=== PATIENT | female | born 1950 | race Caucasian/White ===

== ENCOUNTER → 2016-09-23 | Outpatient (CLI) | payer OTHER ==
[~2016-09-23] MED LIST: ALDACTONE25 M1 PO; CEPHULAC10 GM/15 M PO; CEPHULAC10 GM/151 PO; GLIPIZIDE5 MG PO; HUMALOG100 U/ML SC; IBUPROFEN400 MG PO; JANUVIA50 MG PO; K-Lyte/Cl25 MEQ PO; KEFZOL IV; KLOR-CON M2020 ME1 PO; LANTUS100 U/ML SC; LASIX20 MG PO; LISINOPRIL10 M1 PO; OXYCODONE HCL5 MG PO; PANTOPRAZOLE SO40 MG PO; PROTONIX40 MG PO; TRAMADOL HCL50 MG PO; VITAMIN D50000 I3 PO; Zofran4 MG PO
== END | disposition home or self-care (01) ==
LOC: MRI 08:52
DX: M75.42 Impingement syndrome of left shoulder (principal); M47.892 Other spondylosis, cervical region; M48.02 Spinal stenosis, cervical region; M54.12 Radiculopathy, cervical region; M25.512 Pain in left shoulder; M54.2 Cervicalgia; R20.0 Anesthesia of skin

== ENCOUNTER → 2016-09-30 | Outpatient (CLI) | payer OTHER ==
[2016-09-30 08:25] LABS: BASO % 0.9 % (0.0-1.0); EOS # 0.2 10*3/uL (0.0-0.4); EOS % 5.5 % (1.0-4.0); HEMATOCRIT 38.6 % (37.0-47.0); LYMPH # 1.1 10*3/uL (1.3-4.4); LYMPH % 25.1 % (27.0-41.0); MEAN CELL VOLUME 87.7 fl (81.0-99.0); MEAN CORPUSCULAR HGB 31.8 pg (27.0-31.0); MEAN CORPUSCULAR HGB CONC 36.3 g/dl (33.0-37.0); MEAN PLATELET VOLUME 10.2 fl (9.6-12.3); MONO # 0.7 10*3/uL (0.1-1.0); MONO % 16.4 % (3.0-9.0); NEUT # 2.3 10*3/uL (2.3-7.9); NEUT % 51.9 % (47.0-73.0); PLATELET COUNT AUTOMATED 106 10*3/uL (130-400); RED CELL DISTRI WIDTH 12.9 % (0-14.5); WHITE BLOOD COUNT 4.4 10*3/uL (4.8-10.8)
[2016-09-30 08:43] LABS: INTERNATIONAL NORM RATIO 1.3 (2.0-3.5); PROTHROMBIN TIME 13.7 SECONDS (9.0-12.4)
[2016-09-30 08:44] LABS: ALBUMIN 2.9 gm/dl (3.1-4.5); ALKALINE PHOSPHATASE 205 U/L (45-117); BILIRUBIN, TOTAL 2.6 mg/dl (0.2-1.0); BUN 11 mg/dl (7-24); CARBON DIOXIDE 26 mmol/L (21-32); CHLORIDE 112 mmol/L (98-107); CHOLESTEROL 118 mg/dL (<200); EST GLOM FILT AFRICAN AMERICAN > 60 ml/min; GLUCOSE 176 mg/dL (65-99); HDL CHOLESTEROL 58 mg/dl (40-60); LDL CHOLESTEROL 38 mg/dL (9-159); POTASSIUM 3.4 mmol/L (3.5-5.1); SGOT/AST 38 IU/L (3-35); SGPT/ALT 33 U/L (12-78); SODIUM 145 mmol/L (136-145); TOTAL PROTEIN 6.3 gm/dL (6.4-8.2); TRIGLYCERIDES 111 mg/dl (<150); VLDL CHOLESTEROL 22 mg/dL (6-40)
== END | disposition home or self-care (01) ==
LOC: LAB 07:13 → US 07:30
DX: E11.9 Type 2 diabetes mellitus without complications (principal); K75.81 Nonalcoholic steatohepatitis (NASH); K74.60 Unspecified cirrhosis of liver

== ENCOUNTER 2016-12-21 16:14 | Emergency (ER) | payer OTHER ==
[~2016-12-21] VITALS: Wt 77.1 kg
== END 2016-12-21 17:26 | disposition home or self-care (01) ==
LOC: ED 16:14
DX: S83.92XA Sprain of unspecified site of left knee, initial encounter (principal); Z79.4 Long term (current) use of insulin; Z79.899 Other long term (current) drug therapy; W18.09XA Striking against other object with subsequent fall, initial encounter; Y93.01 Activity, walking, marching and hiking; Y92.9 Unspecified place or not applicable; Y99.9 Unspecified external cause status

== ENCOUNTER → 2017-02-24 | Day surgery (SDC) | payer OTHER ==
[~2017-02-24] VITALS: Ht 162.5 cm; Wt 72.6 kg
[~2017-02-24] MED LIST changes: +LANTUS SOL100 UNIT/1 SC
--- NOTE | ~2017-02-24 | O ---
[place], [place] OPERATIVE NOTE NAME: GABRIEL LYNCH UNIT #: [id number] ROOM: DOCTOR: JOHN TRINIDAD MD BIRTHDATE: [birth year] DOS: 02/24/2017 PREOPERATIVE DIAGNOSIS: Cataract, right eye. POSTOPERATIVE DIAGNOSIS: Cataract, right eye. OPERATION: Extracapsular cataract extraction by phacoemulsification with posterior chamber intraocular lens implantation, right eye. ANESTHESIA: Monitored standby. OPERATIVE FINDINGS AND PROCEDURE: 2% Xylocaine topical anesthetic gel was applied to the eye in the preop area. The patient was taken to the operating room and prepped and draped in the standard fashion for sterile intraocular surgery. A time out procedure was performed verifying correct patient, correct site and corrects lens with Gasper Trinidad M.D. The operating microscope was swung into position and the lid speculum was inserted. Using a Germaine paracentesis blade, a paracentesis was made through clear cornea. Viscoelastic was used to fill the anterior chamber. Using a metal keratome a 2.4 mm self-sealing clear corneal cataract incision was made temporally at the limbus. Using a pre-bent 25 gauge cystotome needle, a standard continuous curvilinear capsulorrhexis was performed. The anterior capsule was removed with forceps. The lens nucleus was hydrodissected and phacoemulsified in the posterior chamber. Cortical material was removed with the irrigation aspiration hand piece and the posterior capsule was then polished with a curet under irrigation. The posterior chamber and capsular bag were filled with viscoelastic. A posterior chamber intraocular lens manufactured by: [employer], Model #[id number], and 22.5 diopters in strength were then inserted into the posterior chamber and within the capsular bag using the lens cartridge and injector system. Viscoelastic was removed using the irrigation aspiration handpiece. The anterior chamber was filled with balanced salt solution through the paracentesis. Both the paracentesis site and cataract incisions were hydrated with BSS and verified to be water-tight and self-sealing. Cefuroxime 1 mg/0.1 mL was injected into the anterior chamber through the paracentesis site. The incision checked to be water-tight using a Weck-Sienna sponge. The integrity of the cataract wound and ocular tension were checked. Lid speculum and drapes were removed. The patient was transferred from the operating room to the recovery room in satisfactory condition. [place], [place] OPERATIVE NOTE NAME: GABRIEL LYNCH UNIT #: [id number] ROOM: DOCTOR: JOHN TRINIDAD MD BIRTHDATE: [birth year] JOHN TRINIDAD MD CM:OPRECORD:OPERATIVE NOTE [id number] JOHN TRINIDAD MD 02/24/17 1252 interface
[2017-02-24 07:00] VITALS: BP 171/73
[2017-02-24 09:30] VITALS: BP 154/64
[2017-02-24 09:45] VITALS: BP 154/66
[2017-02-24 10:00] VITALS: BP 154/66
== END | disposition home or self-care (01) ==
LOC: SDC 02-19 08:45
DX: E11.36 Type 2 diabetes mellitus with diabetic cataract (principal); Z98.890 Other specified postprocedural states; Z88.3 Allergy status to other anti-infective agents; Z87.891 Personal history of nicotine dependence

== ENCOUNTER → 2017-03-31 | Day surgery (SDC) | payer OTHER ==
[~2017-03-31] VITALS: Ht 162.5 cm; Wt 72.6 kg
--- NOTE | ~2017-03-31 | O ---
[place], [place] OPERATIVE NOTE NAME: GABRIEL LYNCH UNIT #: [id number] ROOM: DOCTOR: JOHN TRINIDAD MD BIRTHDATE: [birth year] DOS: 03/31/2017 PREOPERATIVE DIAGNOSIS: Cataract, left eye. POSTOPERATIVE DIAGNOSIS: Cataract, left eye. OPERATION: Extracapsular cataract extraction by phacoemulsification with posterior chamber intraocular lens implantation, left eye. ANESTHESIA: Monitored standby. OPERATIVE FINDINGS AND PROCEDURE: 2% Xylocaine topical anesthetic gel was applied to the eye in the preop area. The patient was taken to the operating room and prepped and draped in the standard fashion for sterile intraocular surgery. A time out procedure was performed verifying correct patient, correct site and corrects lens with Gasper Trinidad M.D. The operating microscope was swung into position and the lid speculum was inserted. Using a Germaine paracentesis blade, a paracentesis was made through clear cornea. Viscoelastic was used to fill the anterior chamber. Using a metal keratome a 2.4 mm self-sealing clear corneal cataract incision was made temporally at the limbus. Using a pre-bent 25 gauge cystotome needle, a standard continuous curvilinear capsulorrhexis was performed. The anterior capsule was removed with forceps. The lens nucleus was hydrodissected and phacoemulsified in the posterior chamber. Cortical material was removed with the irrigation aspiration hand piece and the posterior capsule was then polished with a curet under irrigation. The posterior chamber and capsular bag were filled with viscoelastic. A posterior chamber intraocular lens manufactured by: [employer], Model #[id number] and 23.0 diopters in strength were then inserted into the posterior chamber and within the capsular bag using the lens cartridge and injector system. Viscoelastic was removed using the irrigation aspiration handpiece. The anterior chamber was filled with balanced salt solution through the paracentesis. Both the paracentesis site and cataract incisions were hydrated with BSS and verified to be water-tight and self-sealing. Cefuroxime 1 mg/0.1 mL was injected into the anterior chamber through the paracentesis site. The incision checked to be water-tight using a Weck-Sienna sponge. The integrity of the cataract wound and ocular tension were checked. Lid speculum and drapes were removed. The patient was transferred from the operating room to the recovery room in satisfactory condition. [place], [place] OPERATIVE NOTE NAME: GABRIEL LYNCH UNIT #: [id number] ROOM: DOCTOR: JOHN TRINIDAD MD BIRTHDATE: [birth year] JOHN TRINIDAD MD CM:OPRECORD:OPERATIVE NOTE [id number] JOHN TRINIDAD MD 03/31/17937 interface
[2017-03-31 07:28] VITALS: BP 163/84
[2017-03-31 08:05] VITALS: BP 140/52
[2017-03-31 08:20] VITALS: BP 139/49
[2017-03-31 08:35] VITALS: BP 140/52
== END | disposition home or self-care (01) ==
LOC: SDC 03-26 08:00
DX: E11.36 Type 2 diabetes mellitus with diabetic cataract (principal); Z98.890 Other specified postprocedural states; Z83.3 Family history of diabetes mellitus; H40.9 Unspecified glaucoma; Z98.51 Tubal ligation status

== ENCOUNTER → 2018-04-04 | Outpatient (CLI) | payer OTHER ==
[~2018-04-04] MED LIST changes: +ALDACTONE100 MG PO; +CARVEDILOL6.25 MG PO; +COREG12.5 M1 PO; +FUROSEMIDE20 M1 PO; +FUROSEMIDE40 MG PO; +HUMALOG100 UNIT/2 SQ; +LACTULOSE20 GM/30 M PO; +NEURONTIN300 MG PO; +ORAZINC 220220 MG PO; +VITAMIN D-32000 UNIT PO; +ZESTRIL20 MG PO
[2018-04-04 10:17] LABS: BASO % 0.9 % (0.0-1.0); EOS # 0.3 10*3/uL (0.0-0.4); EOS % 6.1 % (1.0-4.0); HEMATOCRIT 31.2 % (37.0-47.0); HEMOGLOBIN 10.3 g/dl (12.0-16.0); LYMPH # 0.9 10*3/uL (1.3-4.4); LYMPH % 20.7 % (27.0-41.0); MEAN CELL VOLUME 93.1 fl (81.0-99.0); MEAN CORPUSCULAR HGB 30.7 pg (27.0-31.0); MEAN PLATELET VOLUME 11.4 fl (9.6-12.3); MONO # 0.5 10*3/uL (0.1-1.0); MONO % 11.5 % (3.0-9.0); NEUT # 2.7 10*3/uL (2.3-7.9); NEUT % 60.6 % (47.0-73.0); PLATELET COUNT AUTOMATED 106 10*3/uL (130-400); RED BLOOD COUNT 3.35 10*6/uL (4.10-5.10); RED CELL DISTRI WIDTH 14.8 % (0-14.5); WHITE BLOOD COUNT 4.5 10*3/uL (4.8-10.8)
[2018-04-04 10:47] LABS: ALBUMIN 2.1 gm/dl (3.1-4.5); CREATININE 1.46 mg/dL (0.55-1.02); PHOSPHOROUS 3.4 mg/dL (2.5-4.9); POTASSIUM 4.1 mmol/L (3.5-5.1); TOTAL PROTEIN 6.3 gm/dL (6.4-8.2)
[2018-04-04 11:10] LABS: INTERNATIONAL NORM RATIO 1.2 (2.0-3.5)
== END | disposition home or self-care (01) ==
LOC: LAB 09:39
PROVIDERS: Student in an Organized Health Care Education/Training Program
DX: K74.69 Other cirrhosis of liver (principal); D68.8 Other specified coagulation defects

== ENCOUNTER 2018-04-11 13:01 | Inpatient (IN) | payer OTHER ==
[~2018-04-11] VITALS: Ht 162.5 cm; Wt 83.0 kg
--- NOTE | ~2018-04-11 | PROC NOTE ---
[place], [place] PROCEDURE NOTE NAME: GABRIEL LYNCH UNIT #: [id number] ROOM: 506 DOCTOR: LUZ RODRÍGUEZ MD,WENCESLAO BIRTHDATE: [birth year] DOS: 04/18/2018 PROCEDURE: Right-sided ultrasound-guided thoracentesis. PREOPERATIVE DIAGNOSIS: Persistent moderate right pleural fluid with current maximum medical therapy for congestive heart failure. POSTOPERATIVE DIAGNOSIS: Removal of 700 mL pleural fluid left pleural space without any difficulty. PROCEDURES: None. COMPLICATIONS: None. PROCEDURE DESCRIPTION: Informed consent obtained for the patient. She was placed in sitting position. The ultrasound was already performed. The site of thoracentesis in the right posterior lower chest. Skin was cleaned with chlorhexidine solution. 1% lidocaine was administered in the skin intercostal space. During administration of local anesthetic. The patient right pleural fluid was entered. A small amount of fluid was aspirated. After that small incision given in the skin. The Turk[place] thoracentesis catheter introduced in the incision into the right pleural space without any difficulty. Aspiration of the fluid was noted in the syringe. After that, the catheter remains in place. The needle was introduced and was removed. Pleural fluid samples were collected. Initially after remaining pleural fluid was drained with the vacuum bottle without difficulty. Procedure well tolerated by the patient without difficulty. Pleural fluid sent for all the appropriate testing. The chest x-ray done postprocedure shows marked improvement and resolution of the pleural fluid at this time without any pneumothorax. WENCESLAO ESCOBAR MD CM:PROCNOTE:PROCEDURE NOTE [id number] WENCESLAO RODRÍGUEZ MD
--- NOTE | ~2018-04-11 | EKG ---
[place], [place] ELECTROCARDIOGRAM REPORT NAME: GABRIEL LYNCH UNIT #: [id number] ROOM: 506 DOCTOR: ALEXIA DRAFT REPORT BIRTHDATE: [birth year] [facility] Test Date: 2018-04-11 Test Time: 13:35:50 Pat Name: GABRIEL LYNCH Department: Room: 506 Gender: F Corporate Real Estate Specialist: Tresa Sparrow : 1950 Requested By: JAIME SOSA Order Number: [id number] Reading MD: Elicia Garrett MD Measurements Intervals [place] Rate: 48 P: 23 HI: 153 QRS: 12 QRSD: 90 T: 0 QT: 560 QTc: 501 Interpretive Statements Sinus bradycardia Low voltage, precordial leads Prolonged QT interval No previous ECG available for comparison Electronically Signed On 04-17-2018 5:34:00 PDT by Elicia Garrett MD CM:EKGRPT:ELECTROCARDIOGRAM REPORT [id number] JAIME SOSA MD EPIPHMARIA FERNANDA DRAFT REPORT JAIME SOSA MD
--- NOTE | ~2018-04-11 | CON ---
[place], [place] REPORT OF CONSULTATION NAME: GABRIEL LYNCH UNIT #: [id number] ROOM: 506 DOCTOR: LUZ RODRÍGUEZ MDWENCESLAO BIRTHDATE: [birth year] DOS: 04/16/2018 PULMONARY CONSULTATION CONSULTATION REQUESTED BY: Hospitalist service. REASON FOR CONSULTATION: Assessment of current pleural fluid noted on the CT scan of the chest. HISTORY OF PRESENT ILLNESS: This is a 67-year-old white female patient who has been currently treated in the hospital since 04/09/2018. The patient has been admitted to the hospital under the care of the hospitalist service on the date of 04/11/2018. She presented to the Emergency Room as the patient has been noted with history of nonalcoholic liver disease. The patient has a TIPS, which was inserted for this patient at [facility] a few years ago. The patient has been noted with history of congestive heart failure, which has been managed by the web user experience strategist. She presented to the hospital. The patient reported having increased shortness of breath with general edema reported. The patient denies any symptoms of chest pain or cough. The patient has moved from [place] to live in [place] about 6 weeks ago. The patient does have symptoms of nonproductive cough. Occasional wheezing was also reported. Denies symptoms of fever or chills. The shortness of breath has been noted better. The patient with reduction in the edema of the lower extremities. She has been assessed by the web user experience strategist, Dr. Garrett as well and continued receiving the IV Lasix. REVIEW OF SYSTEMS: CONSTITUTIONAL: Fatigue and tiredness reported without any symptoms of fever or chills. EYES: Denies any burning, redness, or tenderness. EARS, NOSE, THROAT SYMPTOMS: Denies sore throat, hoarseness, otalgia, or epistaxis. CARDIOVASCULAR: Denies anginal pain, edema or pain of the lower extremities at the present time, but noted edema. The patient's presentation seemed to be improved at this time. GASTROINTESTINAL: Dysphagia, nausea, vomiting, diarrhea, abdominal pain, hematemesis, melena, or hematochezia. Denies abnormal weight loss history. SKIN: Denied lesions or rashes. MUSCULOSKELETAL: No acute joint pain, redness, or tenderness. CENTRAL NERVOUS SYSTEM: No dizziness, headache, diplopia. Remaining systems were reviewed. They were noted all negative. PAST MEDICAL HISTORY: 1. Noted with a history of congestive heart failure, diastolic dysfunction. 2. Nonalcoholic liver disease for this patient with manifestations of chronic liver disease. The patient currently has a TIPS, which was inserted for the patient about 4-5 years ago in [facility] as per patient. 3. History of chronic moderate obesity. 4. Paracentesis with ascites. 5. Chronic liver disease. [place], [place] REPORT OF CONSULTATION NAME: GABRIEL LYNCH UNIT #: [id number] ROOM: [facility] DOCTOR: LUZ RODRÍGUEZ MD,[facility] BIRTHDATE: [birth year] 6. Past history of GI bleeding. 7. Esophageal varices. 8. History of type 2 diabetes mellitus. SURGICAL HISTORY: TIPS insertion. SOCIAL HISTORY: The patient stated she lives at home. Denies using alcohol or illicit drug use. She is . She denies any tobacco use in the past. Denies having history of alcohol use or illicit drugs. FAMILY HISTORY: Father at younger age with complication of abdominal aortic aneurysm rupture. The mother at the age of 84 years from old age. MEDICATIONS: From home were listed for patient use of Coreg, Lasix, Neurontin, Lantus insulin, lactulose, lisinopril, Aldactone, and zinc sulfate. DRUG ALLERGIES: The patient noted no known drug allergies. PHYSICAL EXAMINATION: GENERAL: This is a 67-year-old white female who has been currently sitting in the chair in her room. She has not been showing any signs of respiratory distress. VITAL SIGNS: Height on admission recorded 5 feet 4 inches, weight 197 pounds, BMI 33.9. Temperature was noted normal in the last 48 hours, respiratory rate 17-16, heart rate 51-52 with sinus bradycardia, blood pressure 116/77-154/46. Intake of 1260 mL and output 700 mL. The pulse oxygen saturation on room air 98% saturation. HEENT: Head was atraumatic. Eyes nonicterus. NECK: Supple. CARDIOVASCULAR SYSTEM: S1, S2 is audible. LUNGS: Noted decreased breath sounds in the right lung base. There is no wheezing or crackles. ABDOMEN: Soft, nontender, bowel sounds present. EXTREMITIES: The patient was noted without any acute edema, clubbing or cyanosis. VISIBLE SKIN: No lesions or rashes. MUSCULOSKELETAL: Without acute deformities. CENTRAL NERVOUS SYSTEM: Cranial nerves 2-12 intact. No focal deficit. LABORATORY DATA: CBC on admission 22, WBC count normal, hemoglobin 11.9, platelet count 124,000. Lactic acid 2.1, follow variably elevated. The PT, PTT for the patient on 04/11/2018. INR 1.2, normal PTT on admission. The BMP on admission on , BUN 20, creatinine 1.32. Glucose 171. Bilirubin 1.1, albumin 2.2. AST, ALT normal. Troponin was normal as well. The CMP that was done on the , BUN 23, creatinine 1.26. Total protein 5.9, albumin 2.0. AST 48, alkaline phosphatase and AST and ALT were normal. Ammonia level today was noted as 71, previously noted up to 101 two days ago. The review of the radiology data for this patient. The chest x-ray of the patient that was done on 04/11/2018 noted with findings of congestive heart [place], [place] REPORT OF CONSULTATION NAME: GABRIEL LYNCH UNIT #: [id number] ROOM: [facility] DOCTOR: [facility] [birth year] failure, bilateral small pleural effusions. The chest x-ray on 04/14/2018 noted cardiomegaly, small right pleural fluid. The CT scan of the chest done yesterday shows [id number] right pleural fluid was noted with area of compression, atelectasis in the right lower lobe. There was no acute infiltration noted. Left lung appeared to be clear of any pleural fluid, infiltration, or other abnormalities. IMPRESSION: 1. The patient has not been noted with history of chronic liver disease with history of congestive heart failure, diastolic dysfunction with echocardiogram done on this admission noted with current pleural fluid related to the current problem for the patient is very likely cause of the pleural fluid. She does not have signs of respiratory distress. Fluid was noted, possibly moderate at this time. 2. Chronic moderate obesity. 3. Nonalcoholic chronic liver disease as well with past gastrointestinal bleeding. 4. Hyperammonemia secondary to chronic liver disease, which has been treated. PLAN OF MANAGEMENT: The patient will be continued on the conservative treatment therapy at this time with use of the Lasix, bronchodilators and other. The Lasix dose has been changed from 40 to 60 mg daily will be continued. Reassess the pleural fluid with ultrasound and chest x-ray on Wednesday. If the pleural fluid noted increased or remains persistent, certainly does not respond to conservative treatment. Consider diagnostic and other therapeutic thoracentesis at that time. Other supportive therapy, plan of management care. The patient otherwise plan to be continued without any changes. Usual care, other supportive plan of treatment and care. Additional treatment changes recommended based on progression of illness. The assessment and management were discussed with Adonis Seth, taking care of this patient today. WENCESLAO ESCOBAR MD CM:CONSTR:REPORT OF CONSULTATION 1352 04/16/18 8905 interface
--- NOTE | ~2018-04-11 | PR ---
[place], [place] PROGRESS NOTE NAME: GABRIEL LYNCH UNIT #: [id number] ROOM: 506 DOCTOR: WENCESLAO TOVAR MD BIRTHDATE: [birth year] DOS: 04/19/2018 PULMONARY PROGRESS NOTE SUBJECTIVE: The patient has been noted much comfortable. Improvement in shortness of breath noted after thoracentesis completed yesterday from the right pleural space. About 700 mL of pleural fluid were removed. There were no symptoms of chest pain, fever, chills, coughing or sputum expectoration. OBJECTIVE: VITAL SIGNS: Normal temperature, respiratory rate 18, heart rate 50, blood pressure 144/50. The pulse oxygen saturation recorded as 96% at rest on room air. HEENT: No acute change. NECK: Supple. CARDIOVASCULAR: S1 and S2 audible. LUNGS: Without any wheezes or crackles. ABDOMEN: Soft, nontender. Bowel sounds present. EXTREMITIES: Without acute edema. LABORATORY DATA: Pleural fluid analysis of yesterday noted transudative effusion with pH of the fluid as 7.42. Chest x-ray shows marked improvement in aeration, without any residual pleural fluid or evidence of pneumothorax. IMPRESSION: Congestive heart failure that has been responding to the treatment with significant improvement noted after thoracentesis for transudative pleural fluid yesterday. PLAN OF MANAGEMENT: The patient could be considered home discharge today, if necessary on oral diuretics and other medical management for congestive heart failure on a long-term basis. Discharge planning was discussed Cristy Garza, nurse practitioner taking care of this patient, and we will be discharging the patient today. [place], [place] PROGRESS NOTE NAME: GABRIEL LYNCH UNIT #: [id number] ROOM: 506 DOCTOR: WENCESLAO TOVAR MD BIRTHDATE: [birth year] WENCESLAO ESCOBAR MD CM:PNTRANS [id number] WENCESLAO RODRÍGUEZ MD 04/19/18 1517 interface
--- NOTE | ~2018-04-11 | PR ---
[place], [place] PROGRESS NOTE NAME: GABRIEL LYNCH UNIT #: [id number] ROOM: 506 DOCTOR: GISELLE MOISE MD BIRTHDATE: [birth year] DOS: 04/12/2018 SUBJECTIVE: She is sitting in a chair with a constant cough, which is annoying her, causing belly discomfort. She has shortness of breath. She claims that she voided a lot yesterday and today. She has no chest pain or palpitations. Appetite is fine. Family members are around her. PHYSICAL EXAMINATION: VITAL SIGNS: Pulse is 54 regular, blood pressure 140/60. NECK: JVP is increased even in sitting position. CARDIOVASCULAR: Auscultation with normal S1. P2 seems to be a little loud. There is 1+ pretibial edema. RESPIRATORY: Auscultation is fairly decent bilaterally with no obvious adventitious sounds. DIAGNOSTIC DATA: An echocardiogram was done and it showed normal left ventricular systolic function and normal right ventricular systolic function. Right atrium is moderately dilated and the tricuspid valve had [id number] regurgitation. Pulmonary artery systolic pressure was calculated to be 53 mmHg. There was mild mitral regurgitation. IMPRESSION: Right heart failure. I think it is the reason for right-sided volume overload. She has moderately severe tricuspid regurgitation, moderate pulmonary hypertension, and I think this may be impacting the liver as well. PLAN: IV loop diuretics should be continued for the next couple of days and produce some significant negative fluid balance situation. GISELLE MOISE MD CM:PNTRANS 46 GISELLE MOISE MD 04/13/183 interface
--- NOTE | ~2018-04-11 | PR ---
[place], [place] PROGRESS NOTE NAME: GABRIEL LYNCH UNIT #: [id number] ROOM: 506 DOCTOR: GISELLE MOISE MD BIRTHDATE: [birth year] DOS: 04/18/2018 SUBJECTIVE: She is sitting in a chair, comfortable, filing her nails. She is very comfortable. She has no chest pain, breathing difficulty or any palpitations. She had a thoracentesis done and 700 mL of fluid was removed. She has not had any nausea. She is eating reasonably well. PHYSICAL EXAMINATION: GENERAL: Mood is pretty good. She looks a little pale. VITAL SIGNS: Pulse is 60 regular, blood pressure 145/58. NECK: JVP appears to be normal. EXTREMITIES: She has 1+ edema in the lower extremities. LUNGS: She is not tachypneic. Auscultation reveals rhonchi and some crackles in the right lower third of the lung field. Left side appears to be clear of any adventitious sounds now. LABORATORY DATA: BUN and creatinines have improved slightly from previously. IMPRESSION: 1. This patient does not have diastolic heart failure. 2. Right-sided heart failure from moderate tricuspid regurgitation and moderate pulmonary hypertension is likely, which I think is satisfactorily controlled. 3. Edema in the lower extremities and pleural effusions most likely are partly as a result of severe hypoalbuminemia. 4. From cardiac standpoint, she can be discharged home on a small dose of oral furosemide. GISELLE MOISE MD CM:PNTRANS [id number] GISELLE MOISE MD 04/19/18 0200 interface
--- NOTE | ~2018-04-11 | PR ---
[place], [place] PROGRESS NOTE NAME: GABRIEL LYNCH UNIT #: [id number] ROOM: 506 DOCTOR: SARAI TITUS MD BIRTHDATE: [birth year] DOS: 04/19/2018 SUBJECTIVE: The patient is 67-year-old. I am covering for Dr. Garrett. The patient was seen by Dr. Garrett yesterday. She is comfortably sleeping. OBJECTIVE: VITAL SIGNS: Blood pressure is 120/50, heart rate is 52. HEENT: Unremarkable. NECK: Supple, no JVD. LUNGS: Diminished breath sounds. HEART: Sounds are regular. ABDOMEN: Soft, nontender. NEUROLOGIC: Stable. EXTREMITIES: About 2+ edema. LABORATORY DATA: Electrolytes are normal. Creatinine is 1.3. IMPRESSION: The patient most likely with right heart failure with moderate tricuspid regurgitation and pulmonary hypertension, metabolic encephalopathy, diabetes, hypertension, and lactic acidosis. Thoracentesis was done by Dr. Goldman, 700 mL. RECOMMENDATIONS: Continue the diuretics as ordered by Dr. Garrett. Continue with other medications and will follow up. SARAI TITUS MD CM:PNTRANS [id number] SARAI TITUS MD 04/27/18 0651 interface
--- NOTE | ~2018-04-11 | CON ---
[place], [place] REPORT OF CONSULTATION NAME: GABRIEL LYNCH UNIT #: [id number] ROOM: 506 DOCTOR: GISELLE MOISE MD BIRTHDATE: [birth year] DOS: 04/11/2018 CHIEF COMPLAINT: Shortness of breath and weight gain. HISTORY OF PRESENT ILLNESS: This is a 67-year-old -[place] woman who has had cirrhosis of the liver for a long time. She tells me there is also fatty liver from early life. [facility] accordingly told her this is a congenital issue. She does have portal hypertension and also has had esophageal varices. She has noticed increasing shortness of breath in the last several days along with the weight gain. She had no chest pain or palpitations or any dizziness. No swelling of the lower extremities or orthopnea and she tells me that about 3 weeks ago, she was seen in the [facility] and a paracentesis was unsuccessful. PAST MEDICAL HISTORY AND PAST SURGICAL HISTORY: Cirrhosis of the liver. This is a longstanding problem, fatty liver, esophageal varices that had been banded previously, portal hypertension with ascites, duodenal ulcer and duodenitis, gastric erosions. She has had thrombocytopenia, diabetes mellitus, remote episode of pyelonephritis. She has elevated liver enzymes. She has never had a heart attack, heart failure, COPD, stroke or cancer. She has never used alcohol and has been a nonsmoker. No illicit drugs. HOME MEDICATIONS: Include carvedilol, furosemide 40 mg daily, gabapentin 300 t.i.d., insulin Lantus SoloSTAR and insulin lispro, lactulose, lisinopril 20 mg daily, spironolactone 100 mg daily and zinc sulfate 220 mg daily. PHYSICAL EXAMINATION: GENERAL: This is a patient who is alert, seems to be oriented. She is not tachypneic. There is no thyromegaly on finger clubbing. VITAL SIGNS: Pulses is 54 and regular, blood pressure 136/48. JVP is about 8-10 cm with a positive AJR. NECK: No bruit. HEART: There is no cardiomegaly. Auscultation reveals a grade 1/6 systolic murmur over the aortic area. EXTREMITIES: She has 1+ edema in the lower extremities. RESPIRATORY: There are a few right lower zone crackles. Left lung appears clear to auscultation. LABORATORY DATA: ECG showed normal sinus rhythm at 48 beats per minute and a normal pattern. A chest x-ray was reviewed. It shows normal heart size and may be some changes in the right lower lobe, but no pulmonary edema. Hemoglobin 11.9 g/dL, WBC 5.3, platelets 124,000. Ammonia is 90, BUN 26, creatinine 1.46. Estimated GFR 36 mL per minute, potassium 4.1, sodium 144, albumin 2.1, total protein 6.3 g/dL, magnesium 2.0. IMPRESSION: 1. Cirrhosis of the liver is present. There is some clinical evidence of [place], [place] REPORT OF CONSULTATION NAME: GABRIEL LYNCH UNIT #: [id number] ROOM: 506 DOCTOR: GISELLE MOISE MD BIRTHDATE: [birth year] ascites, but she has a large abdomen. 2. She does not display signs of heart failure. She had normal LV ejection fraction 3 years ago, so this is likely to be a diastolic heart failure. 3. Mild anemia and thrombocytopenia. RECOMMENDATIONS: I think a few doses of IV furosemide would be useful to see if her symptoms are alleviated to some extent. Part of the reason for edema of the lower extremities maybe hypoalbuminemia. Thank you for this consult. GISELLE MOISE MD CM:CONSTR:REPORT OF CONSULTATION 99 05/19/18 0807 interface
--- NOTE | ~2018-04-11 | PR ---
[place], [place] PROGRESS NOTE NAME: GABRIEL LYNCH [facility] #: [id number] UNIT #: [id number] ROOM: 506 DOCTOR: GISELLE MOISE MD BIRTHDATE: [birth year] DOS: 04/17/2018 SUBJECTIVE: I saw this patient too many days ago. She has had cirrhosis of the liver for a very long time along with esophageal varices, ascites and I was asked to see her because of possible heart failure. She had an echocardiogram during this hospitalization, which demonstrated an LV ejection fraction of 70% and moderate tricuspid regurgitation and moderate pulmonary hypertension. Diastolic function of the left ventricle appeared normal. She has been receiving IV furosemide with improvement in the edema of the lower extremities, but her creatinine has crept up to 1.36. She has no chest pain, breathing difficulties, has not had any palpitation, no cough or fever. PHYSICAL EXAMINATION: GENERAL: The patient who is sitting in a chair. She is very comfortable rather quiet. Complexion is a little pale. VITAL SIGNS: Pulse is irregular at 54 beats per minute, blood pressure 152/47 and 142/47. NECK: JVP is normal. CARDIOVASCULAR: Auscultation reveals no obvious murmurs and there is no rub. She has 2+ edema below the knees. RESPIRATORY: Lungs are clear to auscultation. LABORATORY DATA: A chest x-ray done on April 14 demonstrated a small right pleural effusion, manifesting and blunting of the costochondral junction. No pulmonary congestion or edema was identified. I reviewed the x-rays again. A CT scan done on the demonstrated moderate pleural effusion, which I think is probably over diagnosed. Serum albumin on admission was 2 g/dL. IMPRESSION: 1. I do not believe that she has left-sided heart failure, i.e., no diastolic heart failure. 2. She is likely to have a right-sided failure due to moderate tricuspid regurgitation, moderate pulmonary hypertension and edema in the lower extremities is most likely from right heart failure and severe hypoalbuminemia. 3. Renal function has worsened since admission and this is most likely due to use of IV furosemide. RECOMMENDATIONS: 1. IV furosemide dose should be discontinued and she can be on some oral diuretic such as 20 mg of furosemide. Some edema in the lower extremities is likely to persist because of severe hypoalbuminemia and unless it is symptomatic, there is no need for us to treat her aggressively. PLAN: I will discuss this with Dr. Ledesma later in the day. [place], [place] PROGRESS NOTE NAME: GABRIEL LYNCH UNIT #: [id number] ROOM: 506 DOCTOR: GISELLE MOISE MD BIRTHDATE: [birth year] GISELLE MOISE MD CM:PNTRANS 1022 04 GISELLE MOISE MD 04/17/182205 interface
--- NOTE | ~2018-04-11 | PR ---
[place], [place] PROGRESS NOTE NAME: GABRIEL LYNCH UNIT #: [id number] ROOM: 506 DOCTOR: LUZ RODRÍGUEZ MD,WENCESLAO BIRTHDATE: [birth year] DOS: 04/18/2018 SUBJECTIVE: The patient has been noted about the same as previously. Denies symptoms of chest pain, coughing or sputum expectoration or symptoms of nausea or vomiting. The patient denies symptoms of pain of the lower extremity, urinary incontinence. There was no further edema of the lower extremities was noted. She continue remains high dose of diuretics intravenously. was noted even in the last 24 hours. The remaining systems reviewed we were noted all negative. OBJECTIVE: VITAL SIGNS: Normal temperature, respiratory rate 16, heart rate 55, blood pressure 115/34. Pulse oxygen saturation on room air 96% saturation. HEENT: No acute change. NECK: Supple. CARDIOVASCULAR: S1, S2 audible. LUNGS: The patient was noted with absent breath sounds still noted right lower lung. The left lung was clear. There were no wheezing or crackles. ABDOMEN: Soft. Mild to moderate obesity. Bowel sounds present. EXTREMITIES: Without acute edema. MUSCULOSKELETAL: Without acute deformities of the skin lesions or rashes. CENTRAL NERVOUS SYSTEM: No gross focal deficit. LABORATORY DATA: BMP for the patient this morning, BUN 26, creatinine 1.31, glucose 147. Sodium 146. CBC: WBC count 5.3, hemoglobin 9.8, hematocrit 29.8, platelet count of 114,000. A chest x-ray that was done this morning shows persistent pleural fluid in the right side. Ultrasound of the chest was also performed at the bedside today which shows moderate amount of pleural fluid, which would not consider tapable. IMPRESSION: 1. Persistent right pleural fluid, not responding to current high dose of diuretics, most likely related to congestive heart failure. Other differential still remains considered for a pleural fluid to be analyzed. 2. Chronic mild bradycardia most likely medication related. 3. Ongoing acute congestive heart failure. 4. Elevation of BUN and creatinine secondary to the current diuretic would be considered. PLAN OF MANAGEMENT: Proceed with thoracentesis as planned for this patient today as the ultrasound was also be done. The patient confirming the pleural fluid, which was noted free flowing. Continuation of the plan of management. Any additional treatment changes necessary will be done after the thoracentesis. [place], [place] PROGRESS NOTE NAME: GABRIEL LYNCH UNIT #: [id number] ROOM: 506 DOCTOR: LUZ RODRÍGUEZ MD,WENCESLAO BIRTHDATE: [birth year] WENCESLAO ESCOBAR MD CM:PNTRANS 1052 1355 WENCESLAO RODRÍGUEZ MD 04/18/18 1356 interface
--- NOTE | ~2018-04-11 | PR ---
[place], [place] PROGRESS NOTE NAME: GABRIEL LYNCH UNIT #: [id number] ROOM: 506 DOCTOR: LUZ RODRÍGUEZ MD,WENCESLAO BIRTHDATE: [birth year] DOS: 04/17/2018 SUBJECTIVE: The patient noted comfortable at this time, remains in the hospital. Continue oxygen supplementation as needed by diuretic therapy, high dose. She has been getting Lasix 60 mg daily from yesterday. Denies symptoms of fever or chills. Mild cough was reported. PHYSICAL EXAMINATION: VITAL SIGNS: Normal temperature, respiratory rate of 20, heart rate of 50, blood pressure 130/42. The intake is 900. Pulse oxygen on room air 100% saturation. HEAD, EYES, EARS, NOSE, AND THROAT: Examination shows head was atraumatic. Eyes nonicterus. NECK: Supple. CARDIOVASCULAR SYSTEM: S1, S2 is audible. LUNGS: Noted decreased breath sounds still noted in the right lower lung with no wheezing or crackles. ABDOMEN: Soft, nontender. EXTREMITIES: No acute edema. IMPRESSION: The patient was noted stable at the present time with the right pleural fluid, congestive heart failure as well. PLAN OF MANAGEMENT: Continuation of the current therapy as in progress. Reassess the patient tomorrow with the ultrasound possibly need of thoracentesis of the pleural fluid remains persistent. WENCESLAO ESCOBAR MD CM:PNTRANS 1510 [id number] WENCESLAO RODRÍGUEZ MD 04/25/18 0935 interface
[~2018-04-11 13:01] MED LIST changes: -ALDACTONE100 MG PO; -CARVEDILOL6.25 MG PO; -COREG12.5 M1 PO; -FUROSEMIDE20 M1 PO; -FUROSEMIDE40 MG PO; -HUMALOG100 UNIT/2 SQ; -LACTULOSE20 GM/30 M PO; -NEURONTIN300 MG PO; -ORAZINC 220220 MG PO; -VITAMIN D-32000 UNIT PO; -ZESTRIL20 MG PO
[2018-04-11 13:02] VITALS: BP 156/63
[2018-04-11] MEDS ORDERED: FUROSEMIDE40 MG PO (13:28)
[2018-04-11] MEDS ORDERED: CARVEDILOL6.25 MG PO (13:28)
[2018-04-11] MEDS ORDERED: ZESTRIL20 MG PO (13:29)
[2018-04-11] MEDS ORDERED: ALDACTONE100 MG PO (13:30)
[2018-04-11] MEDS ORDERED: ORAZINC 220220 MG PO (13:30)
[2018-04-11] MEDS ORDERED: NEURONTIN300 MG PO (13:33)
[2018-04-11 13:51] VITALS: BP 108/48
[2018-04-11 14:01] LABS: BASO % 0.4 % (0.0-1.0); EOS # 0.1 10*3/uL (0.0-0.4); EOS % 1.3 % (1.0-4.0); HEMATOCRIT 35.4 % (37.0-47.0); HEMOGLOBIN 11.9 g/dl (12.0-16.0); LYMPH # 0.8 10*3/uL (1.3-4.4); LYMPH % 15.4 % (27.0-41.0); MEAN CELL VOLUME 91.2 fl (81.0-99.0); MEAN CORPUSCULAR HGB 30.7 pg (27.0-31.0); MEAN CORPUSCULAR HGB CONC 33.6 g/dl (33.0-37.0); MEAN PLATELET VOLUME 11.6 fl (9.6-12.3); MONO # 0.5 10*3/uL (0.1-1.0); MONO % 9.4 % (3.0-9.0); NEUT # 3.9 10*3/uL (2.3-7.9); NEUT % 73.1 % (47.0-73.0); PLATELET COUNT AUTOMATED 124 10*3/uL (130-400); RED BLOOD COUNT 3.88 10*6/uL (4.10-5.10); RED CELL DISTRI WIDTH 14.6 % (0-14.5); WHITE BLOOD COUNT 5.3 10*3/uL (4.8-10.8)
[2018-04-11 14:06] LABS: INTERNATIONAL NORM RATIO 1.3 (2.0-3.5)
[2018-04-11 14:21] LABS: ALBUMIN 2.2 gm/dl (3.1-4.5); CREATININE 1.32 mg/dL (0.55-1.02); POTASSIUM 4.5 mmol/L (3.5-5.1)
[2018-04-11 14:22] LABS: TROPONIN I 0.026 ng/ml (<0.045)
[2018-04-11 14:28] VITALS: BP 127/49
[2018-04-11 14:53] VITALS: BP 134/67
[2018-04-11 16:00] VITALS: BP 136/48
[2018-04-11] MEDS ORDERED: COREG12.5 M1 PO (17:32)
[2018-04-11 17:35] LABS: BILIRUBIN NEGATIVE (NEGATIVE); BLOOD TRACE-INTACT (NEGATIVE); CLARITY CLEAR (CLEAR); COLOR YELLOW (YELLOW); GLUCOSE NEGATIVE (NEGATIVE); KETONE NEGATIVE (NEGATIVE); LEUKO ESTERASE NEGATIVE (NEGATIVE); NITRITE NEGATIVE (NEGATIVE); SPECIFIC GRAVITY 1.025 (1.005-1.030)
[2018-04-11] MEDS ORDERED: HUMALOG100 UNIT/2 SQ (17:35)
[2018-04-11 17:41] LABS: BACTERIA 2+; RBC 0-2 rbc/hpf (0-2)
[2018-04-11 20:00] VITALS: BP 137/50
[2018-04-12] VITALS: BP 108/58
[2018-04-12 04:00] VITALS: BP 145/45
[2018-04-12 06:27] LABS: BASO # 0.1 10*3/uL (0.0-0.1); BASO % 0.9 % (0.0-1.0); EOS # 0.2 10*3/uL (0.0-0.4); EOS % 3.6 % (1.0-4.0); LYMPH # 1.3 10*3/uL (1.3-4.4); LYMPH % 22.4 % (27.0-41.0); MEAN CELL VOLUME 90.6 fl (81.0-99.0); MEAN CORPUSCULAR HGB 30.1 pg (27.0-31.0); MEAN CORPUSCULAR HGB CONC 33.2 g/dl (33.0-37.0); MEAN PLATELET VOLUME 11.4 fl (9.6-12.3); MONO # 0.7 10*3/uL (0.1-1.0); MONO % 11.9 % (3.0-9.0); NEUT # 3.6 10*3/uL (2.3-7.9); NEUT % 60.9 % (47.0-73.0); PLATELET COUNT AUTOMATED 115 10*3/uL (130-400); RED BLOOD COUNT 3.09 10*6/uL (4.10-5.10); RED CELL DISTRI WIDTH 14.8 % (0-14.5); WHITE BLOOD COUNT 5.9 10*3/uL (4.8-10.8)
[2018-04-12 06:32] LABS: HEMOGLOBIN 9.3 g/dl (12.0-16.0)
[2018-04-12 06:45] LABS: CREATININE 1.47 mg/dL (0.55-1.02); PHOSPHOROUS 3.8 mg/dL (2.5-4.9)
[2018-04-12 06:51] LABS: FREE T4 1.16 ng/dl (0.76-1.46); THYROID STIM HORMONE (HS) 6.56 uIU/ml (0.358-4.75)
[2018-04-12 06:53] LABS: POTASSIUM 3.4 mmol/L (3.5-5.1)
[2018-04-12 07:31] LABS: VITAMIN D, 25-HYDROXY 17.4 ng/mL (30-100)
[2018-04-12 09:00] VITALS: BP 154/56
[2018-04-12 12:00] VITALS: BP 138/50
[2018-04-12 16:00] VITALS: BP 140/60
[2018-04-12 20:00] VITALS: BP 136/41; BP 136/61
[2018-04-12 21:43] LABS: CREATININE 1.47 mg/dL (0.55-1.02); POTASSIUM 3.9 mmol/L (3.5-5.1)
[2018-04-13] VITALS: BP 107/39; BP 118/52
[2018-04-13 05:55] LABS: ALBUMIN 2.1 gm/dl (3.1-4.5); CREATININE 1.3 mg/dL (0.55-1.02); PHOSPHOROUS 4.4 mg/dL (2.5-4.9); POTASSIUM 3.5 mmol/L (3.5-5.1)
[2018-04-13 08:00] VITALS: BP 120/48
[2018-04-13 12:00] VITALS: BP 120/63
[2018-04-13 16:00] VITALS: BP 140/59
[2018-04-13 20:00] VITALS: BP 137/51
[2018-04-14] VITALS: BP 145/60
[2018-04-14 04:00] VITALS: BP 145/45
[2018-04-14 06:18] LABS: BASO % 0.6 % (0.0-1.0); EOS # 0.2 10*3/uL (0.0-0.4); EOS % 3.8 % (1.0-4.0); HEMATOCRIT 28.7 % (37.0-47.0); HEMOGLOBIN 9.6 g/dl (12.0-16.0); LYMPH # 1.2 10*3/uL (1.3-4.4); LYMPH % 25.9 % (27.0-41.0); MEAN CELL VOLUME 91.1 fl (81.0-99.0); MEAN CORPUSCULAR HGB 30.5 pg (27.0-31.0); MEAN CORPUSCULAR HGB CONC 33.4 g/dl (33.0-37.0); MEAN PLATELET VOLUME 11.4 fl (9.6-12.3); MONO # 0.6 10*3/uL (0.1-1.0); MONO % 12.6 % (3.0-9.0); NEUT # 2.7 10*3/uL (2.3-7.9); NEUT % 56.9 % (47.0-73.0); PLATELET COUNT AUTOMATED 104 10*3/uL (130-400); RED BLOOD COUNT 3.15 10*6/uL (4.10-5.10); RED CELL DISTRI WIDTH 14.5 % (0-14.5); WHITE BLOOD COUNT 4.7 10*3/uL (4.8-10.8)
[2018-04-14 06:28] LABS: CREATININE 1.26 mg/dL (0.55-1.02); POTASSIUM 3.5 mmol/L (3.5-5.1); TOTAL PROTEIN 5.9 gm/dL (6.4-8.2)
[2018-04-14 08:00] VITALS: BP 124/44
[2018-04-14 12:00] VITALS: BP 145/45
[2018-04-14 16:00] VITALS: BP 130/54; BP 167/55
[2018-04-14 20:00] VITALS: BP 156/52
[2018-04-15] VITALS: BP 133/45
[2018-04-15 12:00] VITALS: BP 126/40
[2018-04-15 16:00] VITALS: BP 135/41
[2018-04-15 20:00] VITALS: BP 154/46
[2018-04-16] VITALS: BP 111/40
[2018-04-16 12:00] VITALS: BP 116/77
[2018-04-16 16:00] VITALS: BP 143/50
[2018-04-16 20:00] VITALS: BP 142/47
[2018-04-17] VITALS: BP 152/47
[2018-04-17 05:59] LABS: BASO % 0.8 % (0.0-1.0); EOS # 0.3 10*3/uL (0.0-0.4); EOS % 6.2 % (1.0-4.0); HEMATOCRIT 28.6 % (37.0-47.0); HEMOGLOBIN 9.6 g/dl (12.0-16.0); LYMPH # 1.2 10*3/uL (1.3-4.4); LYMPH % 23.4 % (27.0-41.0); MEAN CELL VOLUME 90.5 fl (81.0-99.0); MEAN CORPUSCULAR HGB 30.4 pg (27.0-31.0); MEAN CORPUSCULAR HGB CONC 33.6 g/dl (33.0-37.0); MEAN PLATELET VOLUME 11.1 fl (9.6-12.3); MONO # 0.6 10*3/uL (0.1-1.0); MONO % 12.4 % (3.0-9.0); NEUT % 56.8 % (47.0-73.0); PLATELET COUNT AUTOMATED 111 10*3/uL (130-400); RED BLOOD COUNT 3.16 10*6/uL (4.10-5.10); RED CELL DISTRI WIDTH 14.3 % (0-14.5); WHITE BLOOD COUNT 5.2 10*3/uL (4.8-10.8)
[2018-04-17 06:11] LABS: CREATININE 1.33 mg/dL (0.55-1.02); PHOSPHOROUS 4.7 mg/dL (2.5-4.9); POTASSIUM 3.6 mmol/L (3.5-5.1)
[2018-04-17 08:00] VITALS: BP 130/42
[2018-04-17 11:11] LABS: ALBUMIN 2.1 gm/dl (3.1-4.5); CREATININE 1.35 mg/dL (0.55-1.02); POTASSIUM 4.1 mmol/L (3.5-5.1); TOTAL PROTEIN 6.3 gm/dL (6.4-8.2)
[2018-04-17 12:00] VITALS: BP 127/46
[2018-04-17 16:00] VITALS: BP 151/50
[2018-04-17 20:00] VITALS: BP 152/47
[2018-04-18] VITALS: BP 115/34
[2018-04-18 06:53] LABS: BASO # 0.1 10*3/uL (0.0-0.1); BASO % 1.1 % (0.0-1.0); EOS # 0.2 10*3/uL (0.0-0.4); EOS % 4.5 % (1.0-4.0); HEMATOCRIT 29.8 % (37.0-47.0); HEMOGLOBIN 9.8 g/dl (12.0-16.0); LYMPH # 1.1 10*3/uL (1.3-4.4); LYMPH % 21.3 % (27.0-41.0); MEAN CELL VOLUME 91.4 fl (81.0-99.0); MEAN CORPUSCULAR HGB 30.1 pg (27.0-31.0); MEAN CORPUSCULAR HGB CONC 32.9 g/dl (33.0-37.0); MEAN PLATELET VOLUME 11.3 fl (9.6-12.3); MONO # 0.7 10*3/uL (0.1-1.0); MONO % 13.6 % (3.0-9.0); NEUT # 3.1 10*3/uL (2.3-7.9); NEUT % 59.1 % (47.0-73.0); PLATELET COUNT AUTOMATED 114 10*3/uL (130-400); RED BLOOD COUNT 3.26 10*6/uL (4.10-5.10); RED CELL DISTRI WIDTH 14.4 % (0-14.5); WHITE BLOOD COUNT 5.3 10*3/uL (4.8-10.8)
[2018-04-18 07:24] LABS: CREATININE 1.31 mg/dL (0.55-1.02); POTASSIUM 4.1 mmol/L (3.5-5.1)
[2018-04-18 08:00] VITALS: BP 151/48
[2018-04-18 10:02] LABS: BODY FLUID WBC 134 /uL
[2018-04-18 10:50] LABS: BF LYMPHOCYTES 30 %; BF MACROPHAGES 51 %; BF MESOTHELIALS 3 %; BF NEUTROPHILS 16 %
[2018-04-18 12:00] VITALS: BP 145/46
[2018-04-18 16:00] VITALS: BP 145/58
[2018-04-18 20:00] VITALS: BP 140/54
[2018-04-19] VITALS: BP 124/42
[2018-04-19 08:00] VITALS: BP 144/50
[2018-04-19] MEDS ORDERED: VITAMIN D-32000 UNIT PO (09:06)
[2018-04-19] MEDS ORDERED: FUROSEMIDE20 M1 PO (09:06)
[2018-04-19] MEDS ORDERED: LACTULOSE20 GM/30 M PO (09:06)
== END 2018-04-19 10:57 | disposition home or self-care (01) | DRG 186 ==
LOC: ED 13:01 → 5E 14:57 → EDHOLD 14:57 → 5E 15:10
PROVIDERS: Emergency Medicine; Family Medicine; Internal Medicine; Internal Medicine Cardiovascular Disease; Registered Nurse
PROC: 0W993ZZ Drainage of Right Pleural Cavity, Percutaneous Approach (ICD-10-PCS; principal; 2018-04-18)
DX: J90 Pleural effusion, not elsewhere classified (principal); G93.41 Metabolic encephalopathy; E43 Unspecified severe protein-calorie malnutrition; E72.20 Disorder of urea cycle metabolism, unspecified; E87.2 Acidosis; I85.00 Esophageal varices without bleeding; R18.8 Other ascites; I50.30 Unspecified diastolic (congestive) heart failure; I13.0 Hypertensive heart and chronic kidney disease with heart failure and stage 1 through stage 4 chronic kidney disease, or unspecified chronic kidney disease; K75.81 Nonalcoholic steatohepatitis (NASH); K74.60 Unspecified cirrhosis of liver; E87.8 Other disorders of electrolyte and fluid balance, not elsewhere classified; N18.3 Chronic kidney disease, stage 3 (moderate); D69.6 Thrombocytopenia, unspecified; I50.810 Right heart failure, unspecified; E83.51 Hypocalcemia; E11.22 Type 2 diabetes mellitus with diabetic chronic kidney disease; I08.1 Rheumatic disorders of both mitral and tricuspid valves; I27.20 Pulmonary hypertension, unspecified; E88.09 Other disorders of plasma-protein metabolism, not elsewhere classified; E87.6 Hypokalemia; Z79.4 Long term (current) use of insulin; Z98.51 Tubal ligation status; Z98.49 Cataract extraction status, unspecified eye; Z83.3 Family history of diabetes mellitus; Z82.49 Family history of ischemic heart disease and other diseases of the circulatory system; Z68.36 Body mass index [BMI] 36.0-36.9, adult

== ENCOUNTER 2018-05-25 05:49 | Emergency (ER) | payer OTHER ==
[~2018-05-25] VITALS: Ht 160 cm; Wt 84.4 kg
--- NOTE | ~2018-05-25 | EKG ---
[place], [place] ELECTROCARDIOGRAM REPORT NAME: GABRIEL LYNCH UNIT #: [id number] ROOM: DOCTOR: EPIPHANY DRAFT REPORT BIRTHDATE: [birth year] [facility] Test Date: 2018-05-25 Test Time: 06:26:33 Pat Name: GABRIEL LYNCH Department: Room: Gender: F Health Clinician: Tanya Damian : 1950 Requested By: LES TYLER Order Number: [id number] Reading MD: Dany Finley MD Measurements Intervals [place] Rate: 45 P: 67 ID: 158 QRS: 8 QRSD: 97 T: 29 QT: 552 QTc: 478 Interpretive Statements Sinus bradycardia Compared to ECG 04/11/2018 13:35:50 Prolonged QT interval no longer present Electronically Signed On 05-25-2018 18:11:15 PST by Dany Finley MD CM:EKGRPT:ELECTROCARDIOGRAM REPORT 0626 1811 LES ANTONY DRAFT REPORT LES TYLER DO
[~2018-05-25 05:49] MED LIST changes: +ALDACTONE100 MG PO; +CARVEDILOL6.25 MG PO; +COREG12.5 M1 PO; +FUROSEMIDE20 M1 PO; +FUROSEMIDE40 MG PO; +HUMALOG100 UNIT/2 SQ; +LACTULOSE20 GM/30 M PO; +NEURONTIN300 MG PO; +ORAZINC 220220 MG PO; +VITAMIN D-32000 UNIT PO; +ZESTRIL20 MG PO
[2018-05-25 06:35] LABS: BASO % 0.8 % (0.0-1.0); EOS # 0.2 10*3/uL (0.0-0.4); EOS % 3.3 % (1.0-4.0); HEMATOCRIT 32.7 % (37.0-47.0); HEMOGLOBIN 11.1 g/dl (12.0-16.0); LYMPH # 1.1 10*3/uL (1.3-4.4); LYMPH % 20.9 % (27.0-41.0); MEAN CELL VOLUME 91.3 fl (81.0-99.0); MEAN CORPUSCULAR HGB CONC 33.9 g/dl (33.0-37.0); MEAN PLATELET VOLUME 11.6 fl (9.6-12.3); MONO # 0.5 10*3/uL (0.1-1.0); MONO % 10.4 % (3.0-9.0); NEUT # 3.3 10*3/uL (2.3-7.9); NEUT % 64.4 % (47.0-73.0); PLATELET COUNT AUTOMATED 110 10*3/uL (130-400); RED BLOOD COUNT 3.58 10*6/uL (4.10-5.10); RED CELL DISTRI WIDTH 14.5 % (0-14.5); WHITE BLOOD COUNT 5.1 10*3/uL (4.8-10.8)
[2018-05-25 06:43] LABS: INTERNATIONAL NORM RATIO 1.3 (2.0-3.5)
[2018-05-25] MEDS ORDERED: COREG12.5 M1 PO (06:43)
[2018-05-25 06:51] LABS: ALBUMIN 2.6 gm/dl (3.1-4.5); ALKALINE PHOSPHATASE 90 U/L (45-117); BUN 36 mg/dl (7-24); CHLORIDE 112 mmol/L (98-107); CREATININE 1.53 mg/dL (0.55-1.02); SGOT/AST 48 IU/L (3-35); SGPT/ALT 30 U/L (12-78); SODIUM 142 mmol/L (136-145); TROPONIN I 0.022 ng/ml (<0.045)
[2018-05-25 07:43] LABS: BILIRUBIN NEGATIVE (NEGATIVE); BLOOD 1+ (NEGATIVE); CLARITY SL CLOUDY (CLEAR); COLOR YELLOW (YELLOW); GLUCOSE NEGATIVE (NEGATIVE); KETONE NEGATIVE (NEGATIVE); LEUKO ESTERASE NEGATIVE (NEGATIVE); NITRITE NEGATIVE (NEGATIVE)
[2018-05-25 08:05] LABS: BACTERIA TRACE; RBC 16-20 rbc/hpf (0-2)
== END 2018-05-25 09:13 | disposition home or self-care (01) ==
LOC: ED 05:49
PROVIDERS: Emergency Medicine
DX: E72.20 Disorder of urea cycle metabolism, unspecified (principal); J90 Pleural effusion, not elsewhere classified; E11.22 Type 2 diabetes mellitus with diabetic chronic kidney disease; N18.3 Chronic kidney disease, stage 3 (moderate); I50.9 Heart failure, unspecified; Z79.899 Other long term (current) drug therapy; Z79.4 Long term (current) use of insulin

== ENCOUNTER 2018-08-16 17:41 | Inpatient (IN) | payer OTHER ==
[~2018-08-16] VITALS: Ht 162.5 cm; Wt 78.6 kg
--- NOTE | ~2018-08-16 | DS ---
[place], [place] DISCHARGE SUMMARY [id number] #: [id number] ROOM: 407 DOCTOR: ANGELA PAULINO MD BIRTHDATE: [birth year] DOS: 08/22/2018 DIAGNOSES: 1. Hepatic encephalopathy. 2. Nonalcoholic steatohepatitis with cirrhosis of liver. 3. Pancytopenia. 4. Thrombocytopenia, most likely from cirrhosis. 5. Anemia, for blood transfusion today. Iron ferritin is pending. 6. Benign hypertension. 7. Bradycardia. 8. Acute kidney injury from acute tubular necrosis. 9. Hyperkalemia from acute kidney injury. 10. History of endoscopy in 2013 with esophageal varices ligation. 11. Diabetes mellitus type 2, insulin-dependent, poorly controlled. MEDICATIONS ON DISCHARGE: The Lantus dosage was increased to 45 at bedtime, Coreg is 12.5 twice a day, lisinopril and Lasix have been discontinued, lactulose 20 grams 3 times a day, coverage scale with insulin lispro and Aldactone 100 mg daily, which was cut back to 50 mg daily. HOSPITAL COURSE: This patient is 67 years old, not known to me. The patient was admitted under Dr. Woods's services. The patient comes in with diagnosis of hepatic encephalopathy with high ammonia level and confusion. The patient was admitted, was started on higher dose of lactulose, Xifaxan, consultation with Dr. Cason. IV fluids, the hyperkalemia, acute kidney injury corrected, Zestril was discontinued. Spironolactone was discontinued because of hyperkalemia. Lasix was also discontinued. Insulin has been increased because of poorly controlled diabetes. She is bradycardic and hypotensive from the Coreg. The dosage of Coreg will be cut back. The patient is relatively stable and is not having any new complaints. Physical therapy has been working with her and she seems stable, no longer confused, answers questions appropriately. Mental status is improved since her stay here. The Coreg dosage was cut down to 6.25 because of bradycardia. The patient is relatively stable and the plan is to discharge her to home today to be followed up as an outpatient. DISCHARGE MEDICATIONS: Aldactone 50 mg daily, Coreg 6.25 b.i.d. Lisinopril and Lasix have been discontinued. ADDENDUM DISCHARGE DIAGNOSES: 1. Hepatic encephalopathy. 2. Blood loss anemia. 3. Hiatal hernia. 4. Pancytopenia and thrombocytopenia. 5. Liver cirrhosis, apparently leading to portal hypertension, hypersplenism and thrombocytopenia. 6. Benign essential hypertension. 7. Acute kidney disease from acute tubular necrosis. 8. Acute kidney failure from acute tubular necrosis. [place], [place] DISCHARGE SUMMARY NAME: GABRIEL LYNCH UNIT #: [id number] ROOM: 407 DOCTOR: ANGELA PAULINO MD BIRTHDATE: [birth year] 9. Hyperkalemia from kidney failure. 10. History of esophageal varices and ligation in 2013 related to portal hypertension. 11. Diabetes mellitus type 2, insulin requiring, uncontrolled. HOSPITAL COURSE: The patient admitted with increased mental confusion. The patient lives at home. She had severely elevated ammonia levels and was started on lactulose and Xifaxan and Gastroenterology was consulted. The patient's mental status and ammonia levels all improved with this treatment and she is alert and oriented now. Advance adult failure to thrive. The patient worked with physical therapy. Progressive blood loss anemia, which was evaluated with panendoscopy by Dr. Cason and she received blood transfusion and hemoglobin improved to 8.6. Type 2 diabetes mellitus. The patient remains on insulin. Blood sugars were monitored and treated. LABORATORY DATA: EGD and colonoscopy results as mentioned above. Hemoglobin improved to 8.6. Iron level was normal. Ammonia level was 49. DISCHARGE MANAGEMENT: 45 units of Lantus insulin at bedtime, lactulose 30 grams b.i.d. Follow up with PCP next week. ANGELA PAULINO MD CM:DISCHARG 0829 1455 ANGELA PAULINO MD 08/26/18 0747 interface
--- NOTE | ~2018-08-16 | PR ---
[place], [place] PROGRESS NOTE NAME: GABRIEL LYNCH UNIT #: [id number] ROOM: 407 DOCTOR: GREG CLINE MD BIRTHDATE: [birth year] DOS: 08/18/2018 SUBJECTIVE: The patient is more alert and oriented, feeling better, able to walk a little. PHYSICAL EXAMINATION: VITAL SIGNS: Blood pressure 112/51, heart rate 57 beats per minute, breathing 18 times per minute, temperature 98.1 degrees Fahrenheit. GENERAL APPEARANCE: The patient is alert and oriented x 3, in no visible distress. Generalized weakness. HEENT AND NECK: Exam within normal limits. CARDIOVASCULAR SYSTEM: Heart rate is regular in rate and rhythm. S1 and S2 normally audible. LUNGS: Clear to auscultation. ABDOMEN: Soft, nontender. No obvious organomegaly. Bowel sounds are present. EXTREMITIES: Without significant cyanosis or edema. IMPRESSION: 1. Hepatic encephalopathy, mental confusion and ammonia levels are all improving with present treatment. 2. Acute vasomotor kidney failure related to dehydration, has also improved with hydration with normal saline. 3. Acute hyperkalemia, resolved with treatment related to acute kidney failure. 4. Acute over chronic kidney disease. The patient's creatinine has improved to 1.42, potassium level normal at 4.1. 5. Benign essential hypertension, treated and controlled. The patient remains on Coreg. GREG CLINE MD CM:PNTRANS [phone] GREG CLINE MD 08/19/18 0551 interface
--- NOTE | ~2018-08-16 | CON ---
[place], [place] REPORT OF CONSULTATION NAME: GABRIEL LYNCH UNIT #: [id number] ROOM: 407 DOCTOR: RICHA COBOS MD BIRTHDATE: [birth year] DOS: 08/24/2018 IDENTIFICATION: This 67-year-old patient has presented with multiple issues among which have been hyperammonemia, renal insufficiency, electrolyte imbalance, and anemia. I have been asked for investigation of anemia, which persisted up to the day of early discharge. PAST MEDICAL HISTORY: Metabolic encephalopathy, protein-calorie malnutrition, borderline elevation of liver function tests, congestive failure. SOCIAL HISTORY: Nonsmoker. Nonalcohol consumer. FAMILY HISTORY: Noncontributory. MEDICATIONS: List reviewed. ALLERGIES: No known medications. REVIEW OF SYSTEMS: HEENT: Denies double vision or blurred vision. RESPIRATORY: Denies shortness of breath. CARDIOVASCULAR: Denies acute chest pain. DIGESTIVE SYSTEM: Hyperammonemia, abnormal LFTs, history of cirrhosis. She is telling me that she has a liver shunt, possibility of TIPS procedure is eminent but details are unknown to us. PHYSICAL EXAMINATION: VITAL SIGNS: Stable. HEENT: Head is normocephalic, nontraumatic. Mouth and buccal mucosa are benign. NECK: Supple. No thyromegaly. No cervical lymphadenopathy. CHEST: Symmetric anatomy, equal expansion. No wheeze. No rhonchi. HEART: Normal sinus rhythm. No gallop. No murmur. ABDOMEN: Soft. No hepato-organomegaly. Bowel sounds present. No pulsatile mass. EXTREMITIES: No cyanosis. No pedal edema. NEUROLOGIC: Alert and appears to be oriented at the present time. IMPRESSION: 1. Hyperammonemia. 2. Anemia. 3. Chronic renal insufficiency. 4. History of suspected cirrhosis with TIPS procedure. PLAN: Anemia is going to be investigated with endoscopic assessment of upper and lower tract. Thank you very much. [place], [place] REPORT OF CONSULTATION NAME: GABRIEL LYNCH UNIT #: [id number] ROOM: 407 DOCTOR: RICHA COBOS MD BIRTHDATE: [birth year] RICHA COBOS MD CM:CONSTR:REPORT OF CONSULTATION 1120 09/01/18 1549 interface
--- NOTE | ~2018-08-16 | O ---
[place], [place] OPERATIVE NOTE NAME: GABRIEL LYNCH UNIT #: [id number] ROOM: 407 DOCTOR: RICHA COBOS MD BIRTHDATE: [birth year] DOS: 08/24/2018 INDICATIONS: The patient has presented with anemia, undergoing investigation. PROCEDURE: Today's procedure part of investigation is panendoscopy and colonoscopy. PREMEDICATION: Propofol. SCOPE: Olympus forward-viewing gastroscope Q10 video. REPORT: After putting the patient in left lateral position and application of lubricant to the scope, the scope was introduced, thereafter under direct visualization advanced through the length of esophagus without difficulty. I do not see there is any esophageal varicosity of gross value to noticeable. Hiatal hernia of 2 cm was noticed. Gastric pouch was entered. Gastritis seen. Antral biopsy obtained. Duodenal bulb, second and third part within normal limits. The patient extubated, tolerated the procedure well. IMPRESSION: 1. Gastritis status post biopsy. 2. Hiatal hernia. PLAN AND DISCUSSION: Furosemide 20 mg one everyday would suffice. We will proceed with colonoscopy. PROCEDURE #2 INDICATIONS: The patient has presented with anemia, undergoing investigation. PROCEDURE: Today's procedure part of investigation is colonoscopy. PREMEDICATION: Propofol. SCOPE: Olympus forward-viewing colonoscope 10L video. REPORT: After putting the patient in left lateral position and application of lubricant to the scope, the scope was introduced, thereafter under direct visualization advanced through the length of colon without difficulty. Colon mucosa and vascularity carefully examined. Base of cecum explored. Appendiceal orifice identified. Ileocecal valve was defined. Air was suctioned out. The patient extubated, tolerated the procedure well. IMPRESSION: Normal colonoscopic examination. Underlying pathology for anemia is multifactorial; first, renal insufficiency; second, history of cirrhosis and TIPS. Hyperammonemia is explained based on this above condition. [place], [place] OPERATIVE NOTE NAME: GABRIEL LYNCH UNIT #: [id number] ROOM: 407 DOCTOR: RICHA COBOS MD BIRTHDATE: [birth year] PLAN AND DISCUSSION: Supportive therapy. Lactulose, H2 blockers. Observation of H and H, electrolytes followup, all as a part of investigation. Follow-up colonoscopy in 10 years unless there are symptoms in which case follow-up should be as needed. Thank you very much indeed. RICHA COBOS MD CM:DARRIONORD:OPERATIVE NOTE 1120 [id number] RICHA COBOS MD 10/11/18 1446 interface
--- NOTE | ~2018-08-16 | EKG ---
[place], [place] ELECTROCARDIOGRAM REPORT NAME: GABRIEL LYNCH UNIT #: [id number] ROOM: 407 DOCTOR: ALEXIA DRAFT REPORT BIRTHDATE: [birth year] [facility] Test Date: 2018-08-16 Test Time: 19:42:29 Pat Name: GABRIEL LYNCH Department: Room: 407 Gender: F Surveillance Operator: Tresa Sparrow : 1950 Requested By: PETRA SMALLS Order Number: [id number] Reading MD: Souleymane Goldman MD Measurements Intervals [place] Rate: 51 P: -18 CA: 157 QRS: 17 QRSD: 100 T: 39 QT: 460 QTc: 424 Interpretive Statements Sinus rhythm Minimal ST elevation, anterior leads Compared to ECG 05/25/2018 06:26:33 Electronically Signed On 08-19-2018 10:00:37 PST by Souleymane Goldman MD CM:EKGRPT:ELECTROCARDIOGRAM REPORT 41 1000 PETRA SMALLS EPIPHANY DRAFT REPORT PETRA SMALLS
--- NOTE | ~2018-08-16 | PR ---
[place], [place] PROGRESS NOTE NAME: GABRIEL LYNCH UNIT #: [id number] ROOM: 407 DOCTOR: ANGELA PAULINO MD BIRTHDATE: [birth year] DOS: 08/20/2018 SUBJECTIVE: The patient states that she feels well and does not have any complaints. Wounds were normal. He denied having any chest pains, palpitations, shortness of breath. Does not have any urinary symptoms. She feels back to her baseline. OBJECTIVE: VITAL SIGNS: Graphic trend shows a pressure of 108/35, pulse of 55, respirations 18, temperature 98.3. LUNGS: Clear. HEART: Regular. ABDOMEN: Obese, soft, nontender. EXTREMITIES: Without any edema. LABORATORY DATA: Blood cultures, no bacterial growth. Labs this morning, WBC count is 4.7, hemoglobin 7.4, hematocrit 21.3, platelets 84. BMP: Glucose 105, BUN 24, creatinine 1.27. Sodium 141, potassium 4.6, chloride 111, bicarbonate 22. Ammonia is 55 down from 85 on 08/18/2018. ASSESSMENT AND PLAN: 1. Hepatic encephalopathy, clinically improving. Ammonia levels have come down. 2. Nonalcoholic steatohepatitis from fatty infiltration of the liver. Continue lactulose. 3. Acute kidney injury, did receive IV fluids. Kidney functions have improved. Plan is to discharge the patient to home tomorrow if continues to remain stable. She lives at home with her daughter. ANGELA PAULINO MD CM:PNTRANS [phone] ANGELA PAULINO MD 08/21/18 0303 interface
--- NOTE | ~2018-08-16 | PR ---
[place], [place] PROGRESS NOTE NAME: GABRIEL LYNCH UNIT #: [id number] ROOM: 407 DOCTOR: GREG CLINE MD BIRTHDATE: [birth year] DOS: 08/19/2018 SUBJECTIVE: The patient continues to become more alert and oriented and gaining strength. OBJECTIVE: GENERAL APPEARANCE: Generalized weakness. VITAL SIGNS: Blood pressure 110/58, heart rate of 55 beats per minute, breathing 18 times per minute, temperature of 99 degrees Fahrenheit. HEENT AND NECK: Exam within normal limits. CARDIOVASCULAR SYSTEM: Heart rate is regular in rate and rhythm. S1 and S2 normally audible. LUNGS: Clear to auscultation. ABDOMEN: Soft, nontender. No obvious organomegaly. Bowel sounds are present. EXTREMITIES: Without significant cyanosis or edema. IMPRESSION: 1. The patient with hepatic encephalopathy with improving ammonia levels and mental alertness and she is being treated with Xifaxan and lactulose. 2. Progressive anemia and drop in hemoglobin down to 7.5. We will check Hemoccult stools and treat with blood transfusion if necessary. I will also consult Dr. Cason to see her. 3. Acute over chronic kidney disease stage 3A, improved with hydration with normal saline. 4. Acute hyperkalemia from acute kidney failure, resolved with treatment. 5. Acute renal failure, vasomotor type, improved with treatment. Creatinine is 1.33 today, continues to improve. 6. Benign essential hypertension, treated and controlled. 7. Hepatic encephalopathy, being treated and improving as mentioned above. GREG CLINE MD CM:PNTRANS [phone] GREG CLINE MD 08/20/18 0958 interface
--- NOTE | ~2018-08-16 | WRIGHTHP ---
[place], [place] PATIENT HISTORY AND PHYSICAL EXAM NAME: GABRIEL LYNCH [facility] #: [id number] UNIT #: [id number] ROOM: 407 DOCTOR: GREG CLINE MD BIRTHDATE: [birth year] DOS: HISTORY OF PRESENT ILLNESS: The patient is a 67-year-old female with a past medical history of; 1. Metabolic encephalopathy, advanced liver cirrhosis, nonalcoholic steatohepatitis, esophageal varices. 2. Type 2 diabetes mellitus. 3. Thrombocytopenia, severe protein-calorie malnutrition. 4. History of elevated AST. 5. History of congestive heart failure. The patient presented to Emergency Department at [facility] with complaints of pain during urination, brought in by her daughter and increased mental confusion for last 10 days. The patient is unable to provide too much more history than this. She just feels that she was sick, so she was brought to the Emergency Department. No chest pain, no shortness of breath, no GI or urinary symptoms, just generalized weakness. REVIEW OF SYSTEMS: GASTROINTESTINAL: The patient without nausea, vomiting or constipation, although the patient says she has chronic diarrhea. RESPIRATORY: No increasing shortness of breath or wheezing. SOCIAL HISTORY: Denies smoking cigarettes, alcohol or drug abuse. FAMILY HISTORY: Noncontributory. MEDICATIONS: The patient takes Coreg and insulin. ALLERGIES: No known drug allergies. PHYSICAL EXAMINATION: GENERAL: Awake, alert, oriented, poor historian, in no visible distress, generalized weakness. IMPRESSION: 1. The patient with hepatic encephalopathy with elevated ammonia levels and history of nonalcoholic steatohepatitis, end-stage liver disease. The patient is on Xifaxan and lactulose and appears more alert and oriented now. 2. Acute hyperkalemia. The patient to be monitored on a manager cardiac and treated with Kayexalate and repeat potassium level normal at 5 from 6.1 yesterday. Acute hyperkalemia related to kidney failure. 3. Acute over chronic kidney disease with creatinine elevated to 2.44, has improved to 1.8 with hydration with normal saline. I will continue hydration. 4. Type 2 diabetes mellitus. Blood sugars to be monitored and treated. The patient continued on insulin. 5. Benign essential hypertension, treated with Coreg, which has been continued. [place], [place] PATIENT HISTORY AND PHYSICAL EXAM NAME: GABRIEL LNYCH UNIT #: [id number] ROOM: 407 DOCTOR: MARLYN GILL,GREG Carlin BIRTHDATE: [birth year] GREG CLINE MD CM:HISPHYS:PATIENT HISTORY AND PHYSICAL EXAMINATION [phone] GREG CLINE MD 08/17/18 1120 interface
--- NOTE | ~2018-08-16 | PR ---
[place], [place] PROGRESS NOTE NAME: GABRIEL LYNCH UNIT #: [id number] ROOM: 407 DOCTOR: ANGELA PAULINO MD BIRTHDATE: [birth year] DOS: 08/21/2018 SUBJECTIVE: The patient is awake and alert and oriented, did not voice any complaints, answered questions appropriately. OBJECTIVE: VITAL SIGNS: Blood pressure is 113/36, pulse of 58, respirations 18, temperature 98.7. LUNGS: Clear. HEART: Regular. ABDOMEN: Soft. EXTREMITIES: Without any edema. LABORATORY DATA: BMP: Glucose 232, BUN 24, creatinine 1.22, sodium 141, potassium 4.2, chloride 110, bicarbonate 22. CBC and ammonia levels are not available yet. ASSESSMENT AND PLAN: 1. Hepatic encephalopathy from nonalcoholic steatohepatitis, improving clinically, awaiting ammonia level. If it is down to normal, plan to discharge the patient to home 2. Acute kidney injury. Kidney functions have also improved with IV fluids. We will discontinue fluids this morning. 3. Type 2 diabetes mellitus, poorly controlled. Blood sugar is still on the high side. The Lantus was increased. Advised the patient to follow with the PCP for further adjustments in meds. ANGELA PAULINO MD CM:PNTRANS [phone] ANGELA PAULINO MD 08/22/18 0525 interface
--- NOTE | ~2018-08-16 | PR ---
[place], [place] PROGRESS NOTE NAME: GABRIEL LYNCH UNIT #: [id number] ROOM: 407 DOCTOR: GREG CLINE MD BIRTHDATE: [birth year] DOS: 08/24/2018 SUBJECTIVE: The patient continues to feel better and she is going for EGD and colonoscopy today by Dr. Cason for progressive blood loss anemia. OBJECTIVE: GENERAL APPEARANCE: The patient is alert and oriented x 3, in no visible distress. VITAL SIGNS: Blood pressure 113/45, heart rate of 55 beats per minute, breathing 20 times per minute, temperature 98.9 degrees Fahrenheit. HEENT AND NECK: Exam within normal limits. CARDIOVASCULAR SYSTEM: Heart rate is regular in rate and rhythm. S1 and S2 normally audible. LUNGS: Clear to auscultation. ABDOMEN: Soft, nontender. No obvious organomegaly. Bowel sounds are present. EXTREMITIES: Without significant cyanosis or edema. IMPRESSION: 1. Blood loss anemia with hemoglobin improved to 8.6 after blood transfusion. 2. Acute kidney failure with hyperkalemia, resolved with hydration with intravenous fluids. 3. Benign essential hypertension. Blood pressures have been monitored and treated. The patient's lisinopril was stopped, but she is still taking Coreg. Blood pressures are staying normal now. The patient's iron levels were normal. 4. Nonalcoholic steatohepatitis from fatty liver and hepatic encephalopathy, improved with Xifaxan and use of lactulose. 5. Acute renal failure, vasomotor type, improved with treatment and hydration. GREG CLINE MD CM:PNTRANS [phone] GREG CLINE MD 08/25/18 0240 interface
--- NOTE | ~2018-08-16 | DS ---
[place], [place] DISCHARGE SUMMARY NAME: GABRIEL LYNCH UNIT #: [id number] ROOM: 407 DOCTOR: GREG CLINE MD BIRTHDATE: [birth year] DOS: ADDENDUM DISCHARGE DIAGNOSES: 1. Hepatic encephalopathy. 2. Blood loss anemia. 3. Hiatal hernia. 4. Pancytopenia and thrombocytopenia. 5. Liver cirrhosis, apparently leading to portal hypertension, hypersplenism and thrombocytopenia. 6. Benign essential hypertension. 7. Acute kidney disease from acute tubular necrosis. 8. Acute kidney failure from acute tubular necrosis. 9. Hyperkalemia from kidney failure. 10. History of esophageal varices and ligation in 2013 related to portal hypertension. 11. Diabetes mellitus type 2, insulin requiring, uncontrolled. HOSPITAL COURSE: The patient admitted with increased mental confusion. The patient lives at home. She had severely elevated ammonia levels and was started on lactulose and Xifaxan and Gastroenterology was consulted. The patient's mental status and ammonia levels all improved with this treatment and she is alert and oriented now. Advance adult failure to thrive. The patient worked with physical therapy. Progressive blood loss anemia, which was evaluated with panendoscopy by Dr. Cason and she received blood transfusion and hemoglobin improved to 8.6. Type 2 diabetes mellitus. The patient remains on insulin. Blood sugars were monitored and treated. LABORATORY DATA: EGD and colonoscopy results as mentioned above. Hemoglobin improved to 8.6. Iron level was normal. Ammonia level was 49. DISCHARGE MANAGEMENT: 45 units of Lantus insulin at bedtime, lactulose 30 grams b.i.d. Follow up with PCP next week. [place], [place] DISCHARGE SUMMARY NAME: GABRIEL LYNCH UNIT #: [id number] ROOM: 407 DOCTOR: GREG CLINE MD BIRTHDATE: [birth year] GREG CLINE MD CM:DISCHARG [phone] GREG CLINE MD 08/26/18 0747 interface
--- NOTE | ~2018-08-16 | PR ---
[place], [place] PROGRESS NOTE NAME: GABRIEL LYNCH UNIT #: [id number] ROOM: 407 DOCTOR: ANGELA PAULINO MD BIRTHDATE: [birth year] DOS: 08/22/2018 SUBJECTIVE: The patient is doing well, does not have any complaints today, wants to go home. OBJECTIVE: VITAL SIGNS: Blood pressure is 94/50, pulse of 69, respirations 18, temperature 98.4. LUNGS: Clear. HEART: Regular. ABDOMEN: Obese, soft, nontender. EXTREMITIES: Without any edema. LABORATORY DATA: Platelets were 85, hemoglobin 7.0 and white cell count of 4.0. ASSESSMENT AND PLAN: 1. Hepatic encephalopathy, which has resolved. The ammonia level down to 49. 2. Anemia, most likely anemia of chronic disease. Iron and ferritin are pending. She has history of endoscopy with esophageal varices ligation in 2013. One unit of blood transfusion will be ordered. Iron and ferritin is pending and then we will consider further treatment plan. Hemoccults also ordered. Dr. Cason has been consulted for possible endo-colo. The patient has agreed for it, but this can be done as an outpatient. 3. Thrombocytopenia from cirrhosis of liver from nonalcoholic steatohepatitis. 4. Benign hypertension. Pressures slightly on the low side. Lisinopril has been discontinued. She is only on Coreg. 5. Acute kidney injury with hyperkalemia, which is also corrected after IV fluids. The plan is to discharge her to home today with visiting nurses. ANGELA PAULINO MD CM:PNTRANS [phone] ANGELA PAULINO MD 09/02/18 1233 interface
--- NOTE | ~2018-08-16 | PR ---
[place], [place] PROGRESS NOTE NAME: GABRIEL LYNCH UNIT #: [id number] ROOM: 407 DOCTOR: GREG CLINE MD BIRTHDATE: [birth year] DOS: 08/23/2018 SUBJECTIVE: The patient is feeling better, but she had dropped her hemoglobin for which she has been scheduled for an EGD by Dr. Cason tomorrow and she also received blood transfusion. OBJECTIVE: GENERAL APPEARANCE: The patient is alert and oriented x 3, in no visible distress. VITAL SIGNS: Blood pressure 120/40, heart rate of 54 beats per minute, afebrile, breathing normally. HEENT AND NECK: Exam within normal limits. CARDIOVASCULAR SYSTEM: Heart rate is regular in rate and rhythm. S1 and S2 normally audible. LUNGS: Clear to auscultation. ABDOMEN: Soft, nontender. No obvious organomegaly. Bowel sounds are present. EXTREMITIES: Without significant cyanosis or edema. IMPRESSION: 1. The patient with hepatic encephalopathy, improved with treatment with Xifaxan and lactulose. 2. Progressive blood loss anemia, treated with blood transfusion and the patient going for endoscopy by Dr. Cason tomorrow. 3. Acute over chronic kidney failure, improved with hydration with normal saline. Hemoglobin improved from 7 to 8.6 with blood transfusion. 4. Acute hyperkalemia from acute kidney failure, resolved with hydration with normal saline. 5. Benign essential hypertension, being monitored and treated and controlled. GREG CLINE MD CM:PNTRANS [phone] GREG CLINE MD 08/24/18 1246 interface
[2018-08-16 17:43] VITALS: BP 112/32
[2018-08-16 18:09] LABS: BILIRUBIN NEGATIVE (NEGATIVE); BLOOD NEGATIVE (NEGATIVE); CLARITY SL CLOUDY (CLEAR); COLOR YELLOW (YELLOW); GLUCOSE 2+ (NEGATIVE); KETONE NEGATIVE (NEGATIVE); LEUKO ESTERASE TRACE (NEGATIVE); NITRITE NEGATIVE (NEGATIVE); SPECIFIC GRAVITY 1.015 (1.005-1.030)
[2018-08-16 18:24] LABS: BACTERIA 2+
[2018-08-16 18:53] LABS: BASO % 0.8 % (0.0-1.0); EOS # 0.2 10*3/uL (0.0-0.4); HEMATOCRIT 25.4 % (37.0-47.0); HEMOGLOBIN 9.2 g/dl (12.0-16.0); LYMPH # 1.1 10*3/uL (1.3-4.4); LYMPH % 22.3 % (27.0-41.0); MEAN CORPUSCULAR HGB CONC 36.2 g/dl (33.0-37.0); MEAN PLATELET VOLUME 9.9 fl (9.6-12.3); MONO # 0.6 10*3/uL (0.1-1.0); MONO % 12.1 % (3.0-9.0); NEUT # 3.1 10*3/uL (2.3-7.9); NEUT % 61.6 % (47.0-73.0); PLATELET COUNT AUTOMATED 102 10*3/uL (130-400); RED BLOOD COUNT 2.79 10*6/uL (4.10-5.10); RED CELL DISTRI WIDTH 14.2 % (0-14.5)
--- NOTE | 2018-08-16 18:59 | NUR ---
LA 2.1 Tesfaye CASILLAS NOTIFIED.
[2018-08-16 19:21] LABS: ALBUMIN 2.9 gm/dl (3.1-4.5); CREATININE 2.44 mg/dL (0.55-1.02); TOTAL PROTEIN 6.7 gm/dL (6.4-8.2)
[2018-08-16 19:23] LABS: POTASSIUM 6.1 mmol/L (3.5-5.1)
--- NOTE | 2018-08-16 19:39 | NUR ---
AMMONIA 145. PETRA RAMIRES NOTIFIED WELL TI EVANS LPN.
[2018-08-16 20:45] VITALS: BP 111/41
[2018-08-17 06:17] LABS: CREATININE 1.81 mg/dL (0.55-1.02)
--- NOTE | 2018-08-17 07:01 | NUR ---
NOTIFIED OF CRITICAL AMONIA. NO NEW ORDERS AT THIS TIME. WILL CONTINUE TO MONITOR PT
[2018-08-17 08:00] VITALS: BP 140/58
--- NOTE | 2018-08-17 08:30 | NUR ---
Director Of Clinical Services in to talk to patient. Patient states lives at home alone with her daughter checking in on her. There are 5 steps in the home. Physician: Dr. Chevy Woods Pharmacy: [facility] Home health services: has had home health in the past but unsure of the name of the company Patient's level of ADLs: INDEPENDENT Patient has working utilities: yes DME: none Follow-up physician's appointment after d/c: she prefers to make her own follow up appt after discharge Does patient want to access PORTAL?: no Discharge plan discussed with patient. She lives at home alone with her daughter checking in on her. She states she is independent in her ADLs and ambulation. Discussed short term SNF and home health care services and she denies a need for either. When medically stable she will be discharged to home. ANTIONE NEVAREZ
[2018-08-17 16:00] VITALS: BP 135/42
[2018-08-17 20:00] VITALS: BP 129/46
--- NOTE | 2018-08-17 23:23 | NUR ---
PATIENT SETTING OFF BED ALARM MULTIPLE TIMES. REINFORCED CALL LIGHT. PATIENT REPEATED UNDERSTANDING.
[2018-08-18] VITALS: BP 112/46
--- NOTE | 2018-08-18 00:56 | NUR ---
24 HR chart check completed.
[2018-08-18 06:55] LABS: BASO % 0.6 % (0.0-1.0); EOS # 0.2 10*3/uL (0.0-0.4); HEMATOCRIT 22.2 % (37.0-47.0); HEMOGLOBIN 7.9 g/dl (12.0-16.0); LYMPH # 1.6 10*3/uL (1.3-4.4); LYMPH % 31.1 % (27.0-41.0); MEAN CORPUSCULAR HGB 32.4 pg (27.0-31.0); MONO # 0.6 10*3/uL (0.1-1.0); MONO % 12.8 % (3.0-9.0); NEUT # 2.6 10*3/uL (2.3-7.9); NEUT % 51.3 % (47.0-73.0); PLATELET COUNT AUTOMATED 90 10*3/uL (130-400); RED BLOOD COUNT 2.44 10*6/uL (4.10-5.10); RED CELL DISTRI WIDTH 14.1 % (0-14.5)
[2018-08-18 06:58] LABS: MEAN CORPUSCULAR HGB CONC 35.6 g/dl (33.0-37.0)
[2018-08-18 07:06] LABS: CREATININE 1.42 mg/dL (0.55-1.02); POTASSIUM 4.1 mmol/L (3.5-5.1)
[2018-08-18 08:00] VITALS: BP 122/58
--- NOTE | 2018-08-18 08:00 | NUR ---
Shift chart check completed.
--- NOTE | 2018-08-18 11:26 | NUR ---
PHYSICAL THERAPY PAtient evaluated on 4, full evaluation to follow. Continue with PT as per plan of care with fall, alarm and acute debility precautions. MAy require SNF. If home, recommend home health RN, PT and OT prn. PAtient is mod complexity via chart review, tests and evaluation: [id number]. Thank you for this rerferral. Susannah Piper,PT
[2018-08-18 12:00] VITALS: BP 104/44
--- NOTE | 2018-08-18 15:09 | NUR ---
PHYSICAL THERAPY Patient presented to therapy in supine with head of bed elevated and body alarm attached ot patient as well, as the bed alarm being on. Patient agrees to therapy session. Patient was identified by name and . Patient performed supine to sitting transfer at EOB with SBA. Patient transferred STS with CGA X 1. Patient ambulated 150' x 1 with COMPUTER INFORMATION SCIENCE PROFESSOR X 1 and no LOB or other difficulty. Patient transferred back to supine in bed with SBA. Patient does have some confusion , which increases the risk for falls. Patient was left in supine with head of bed slightly elevated, call light within reach, portable body alarm tested and attached to patient, and bed alarm activated. Patient was 1:1 with this LEARNING OFFICER for 15 minutes total. SRIKANTH SURESH LEARNING OFFICER
[2018-08-18 16:00] VITALS: BP 118/54
--- NOTE | 2018-08-18 16:23 | NUR ---
PT HELPED OVER TO CHAIR, CHAIR ALARM ON. PT STATES NO NEEDS AT THIS TIME. PT AT THIS TIME ABLE TO ANSWER PERSON, PLACE AND TIME ORIENTATION QUESTIONS.
--- NOTE | 2018-08-18 17:00 | NUR ---
PT ASSISTED TO BATHROOM, THEN BACK TO BED. BED ALARM ON
--- NOTE | 2018-08-18 19:55 | NUR ---
IN TO ASSESS PATIENT AT THIS TIME. PATIENT ALERT AND ORIENTED X3. PATIENT DID HOWEVER PULL HEP LOCK OUT IT WAS SITTING ON THE BEDSIDE COMMODE. NEW HEP LOCK RESTARTED IN THE RIGHT ARM AND EXPLAINED TO THE PATIENT THE REASON THAT IT IS NEEDED AND WE HAVE TO KEEP IT IN UNTIL SHE IS DISCHARGED. PATIENT VERBALIZED UNDERSTANDING.
[2018-08-18 20:00] VITALS: BP 112/51
[2018-08-19] VITALS: BP 104/58
[2018-08-19 06:11] LABS: BASO % 0.8 % (0.0-1.0); EOS # 0.2 10*3/uL (0.0-0.4); EOS % 3.6 % (1.0-4.0); HEMATOCRIT 21.6 % (37.0-47.0); HEMOGLOBIN 7.5 g/dl (12.0-16.0); LYMPH # 1.5 10*3/uL (1.3-4.4); LYMPH % 32.2 % (27.0-41.0); MEAN CELL VOLUME 91.1 fl (81.0-99.0); MEAN CORPUSCULAR HGB 31.6 pg (27.0-31.0); MEAN CORPUSCULAR HGB CONC 34.7 g/dl (33.0-37.0); MEAN PLATELET VOLUME 10.8 fl (9.6-12.3); MONO # 0.6 10*3/uL (0.1-1.0); MONO % 12.6 % (3.0-9.0); NEUT # 2.4 10*3/uL (2.3-7.9); NEUT % 50.4 % (47.0-73.0); PLATELET COUNT AUTOMATED 88 10*3/uL (130-400); RED BLOOD COUNT 2.37 10*6/uL (4.10-5.10); RED CELL DISTRI WIDTH 13.9 % (0-14.5); WHITE BLOOD COUNT 4.8 10*3/uL (4.8-10.8)
[2018-08-19 06:32] LABS: CREATININE 1.33 mg/dL (0.55-1.02); POTASSIUM 4.4 mmol/L (3.5-5.1)
[2018-08-19 08:00] VITALS: BP 110/58
--- NOTE | 2018-08-19 08:30 | NUR ---
Patient resting quietly with no c/o discomfort. Respirations easy and regular. Vital signs stable. No overt distress. EMANUEL ROGERS R
--- NOTE | 2018-08-19 10:02 | NUR ---
PHYSICAL THERAPY Patient presented to therapy with confusion and no complaints or concerns. Patient agrees to therapy session. Patient was identified by name and . Patient transferred supine to sitting at EOB with SBA. Patient transferred STS with SBA. Patient ambulated 100' x 1 with ENGINE PILOT x 1 with one LOB with gait and demonstrating confusion with instructions. Patient sat on EOB and performed bilateral LE ther ex 2 x 10 reps in all planes of movement for strengthening in order to improve patient's functional mobility. Patient required MAXIMUM verbal cues and visual demonstrations for proper exercise technique due to patient's confusion. Patient is a fall risk due to the confusion. Patient performed transfer back to bed in supine with SBA. PATIENT HAS BEEN WALKING TO AND FROM BATHROOM ON HER OWN. Patient was left in supine with head of bed elevated, call light within reach, and bed alarm NOT activated due to her ambulating to restroom throughout the day. Patient was 1:1 with this YARDAGE CALLER for 20 minutes total. SRIKANTH SURESH YARDAGE CALLER
[2018-08-19 12:00] VITALS: BP 110/48
--- NOTE | 2018-08-19 12:05 | NUR ---
DR CLINE NOTIFIED OF DECREASING HEMOGLOBIN LEVEL, ORDERS RECEIVED.
--- NOTE | 2018-08-19 13:00 | NUR ---
PT NOTIFIED OF NEED FOR STOOL FOR OCCULT. PT STATES UNDERSTANDING.
--- NOTE | 2018-08-19 13:25 | NUR ---
PHYSICAL THERAPY Patient presented to therapy in supine just finished eating lunch and no concerns or complaints. Patient agrees to therapy session. Patient was identified by name and . Patient performed all transfers with SBA. Patient ambulated with TAPE RECORDER REPAIRER X 1 for 200' x 1 with 3 episodes of LOB requiring MIN A X 1 to correct. Patient has cognitive issues that make it very difficult for her to understand and follow directions. Patient transferreed back to supine in bed with SBA. Patient is a fall risk due to cognitive issues. Patient was left in supine with head of bed elevated, call light within reach, and tray table near patient. Patient was 1:1 with this TRIPE FINISHER 14 minutes total. EAR JANICE SURESH TRIPE FINISHER
[2018-08-19 16:00] VITALS: BP 108/55
--- NOTE | 2018-08-19 18:00 | NUR ---
PT REMOVING HAT FROM [facility]. NOTIFIED AGAIN OF NEED FOR OCCULT STOOL. HAT REPLACED BY THIS NURSE.
--- NOTE | 2018-08-19 19:30 | NUR ---
Patient resting quietly with no c/o discomfort. Respirations easy and regular. Vital signs stable. No overt distress. ALE CERVANTES
[2018-08-19 20:00] VITALS: BP 119/41
[2018-08-20] VITALS: BP 108/35
[2018-08-20 05:44] LABS: CREATININE 1.27 mg/dL (0.55-1.02); POTASSIUM 4.6 mmol/L (3.5-5.1)
[2018-08-20 06:07] LABS: BASO % 0.9 % (0.0-1.0); EOS # 0.2 10*3/uL (0.0-0.4); EOS % 3.6 % (1.0-4.0); HEMATOCRIT 21.3 % (37.0-47.0); HEMOGLOBIN 7.4 g/dl (12.0-16.0); LYMPH # 1.5 10*3/uL (1.3-4.4); LYMPH % 32.8 % (27.0-41.0); MEAN CORPUSCULAR HGB 31.6 pg (27.0-31.0); MEAN CORPUSCULAR HGB CONC 34.7 g/dl (33.0-37.0); MEAN PLATELET VOLUME 10.9 fl (9.6-12.3); MONO # 0.6 10*3/uL (0.1-1.0); MONO % 13.5 % (3.0-9.0); NEUT # 2.3 10*3/uL (2.3-7.9); PLATELET COUNT AUTOMATED 84 10*3/uL (130-400); RED BLOOD COUNT 2.34 10*6/uL (4.10-5.10); RED CELL DISTRI WIDTH 13.7 % (0-14.5); WHITE BLOOD COUNT 4.7 10*3/uL (4.8-10.8)
[2018-08-20 08:00] VITALS: BP 106/58
[2018-08-20 12:00] VITALS: BP 126/32
--- NOTE | 2018-08-20 12:16 | NUR ---
PHYSICAL THERAPY Pt seen this AM for her therapy session, supine in bed at time of arrival; Pt performed bed mobility supine<>sit; SBA/S. Seated B LE ther-ex for strength, endurance and function: marches, LAQs, hip abd/add, ankle PF/DF. STS transfer from EOB with CGA and min cues for hand placement and technique. Standing ther-ex for strength, balance and endurance: marches, heel raises, hip ABD with 2xUE support and CGA provided for balance and safety. Pt performed gait training with PARKING PATROLLER (CGA for balance and safety) for ~180'x1 with minimal cues for posture and increasing VINNY for stability- pt demo no LOB this date. Pt supine in bed at session end with call light within reach. Pt voiced no c/o's this date. Flaquita Jean, PERFORATOR OPERATOR OIL WELL
[2018-08-20 16:00] VITALS: BP 104/48
[2018-08-20 20:00] VITALS: BP 100/78
[2018-08-21] VITALS: BP 113/36
[2018-08-21 05:46] LABS: CREATININE 1.22 mg/dL (0.55-1.02); POTASSIUM 4.2 mmol/L (3.5-5.1)
[2018-08-21] MEDS ORDERED: LANTUS SOL100 UNIT/1 SC (06:12)
[2018-08-21 06:13] LABS: BASO % 0.7 % (0.0-1.0); EOS # 0.2 10*3/uL (0.0-0.4); HEMOGLOBIN 7.1 g/dl (12.0-16.0); LYMPH # 1.2 10*3/uL (1.3-4.4); LYMPH % 28.6 % (27.0-41.0); MEAN CELL VOLUME 90.9 fl (81.0-99.0); MEAN CORPUSCULAR HGB 32.3 pg (27.0-31.0); MEAN CORPUSCULAR HGB CONC 35.5 g/dl (33.0-37.0); MEAN PLATELET VOLUME 10.8 fl (9.6-12.3); MONO # 0.6 10*3/uL (0.1-1.0); MONO % 14.3 % (3.0-9.0); NEUT # 2.2 10*3/uL (2.3-7.9); NEUT % 51.9 % (47.0-73.0); PLATELET COUNT AUTOMATED 88 10*3/uL (130-400); RED CELL DISTRI WIDTH 13.7 % (0-14.5); WHITE BLOOD COUNT 4.3 10*3/uL (4.8-10.8)
--- NOTE | 2018-08-21 07:30 | NUR ---
Patient resting quietly with no c/o discomfort. Respirations easy and regular. Vital signs stable. No overt distress. ALE CERVANTES
--- NOTE | 2018-08-21 07:39 | NUR ---
24 HR chart check completed.
[2018-08-21 08:00] VITALS: BP 112/37; BP 128/50
--- NOTE | 2018-08-21 10:23 | NUR ---
DAUGHTER IN AND UPDATED ON POC.
[2018-08-21 12:00] VITALS: BP 110/52
--- NOTE | 2018-08-21 12:00 | NUR ---
Patient resting quietly with no c/o discomfort. Respirations easy and regular. Vital signs stable. No overt distress. ALE CERVANTES
[2018-08-21 16:00] VITALS: BP 103/37
--- NOTE | 2018-08-21 16:00 | NUR ---
Patient resting quietly with no c/o discomfort. Respirations easy and regular. Vital signs stable. No overt distress. ALE CERVANTES
[2018-08-21 20:00] VITALS: BP 110/48
--- NOTE | 2018-08-21 21:36 | NUR ---
CALLED DR. PAULINO REGARDING ORDERED 12.5MG COREG AND LOW BP/HEART RATE. SHE IS AWARE AND STATES TO GIVE IT. PT DOES TAKE THIS MEDICATION AT HOME AND STATES THAT HER HEART RATE AT HOME IS USALLY IN THE 40'S, THAT THIS IS NORMAL FOR HER. WILL MONITOR PT CLOSESLY.
[2018-08-22] VITALS (13 sets, daily range): BP systolic 94–132; BP diastolic 32–61
[2018-08-22 06:44] LABS: BASO % 0.5 % (0.0-1.0); EOS # 0.2 10*3/uL (0.0-0.4); HEMATOCRIT 19.6 % (37.0-47.0); LYMPH % 26.1 % (27.0-41.0); MEAN CELL VOLUME 92.9 fl (81.0-99.0); MEAN CORPUSCULAR HGB 33.2 pg (27.0-31.0); MEAN CORPUSCULAR HGB CONC 35.7 g/dl (33.0-37.0); MEAN PLATELET VOLUME 10.4 fl (9.6-12.3); MONO # 0.5 10*3/uL (0.1-1.0); NEUT # 2.2 10*3/uL (2.3-7.9); NEUT % 54.4 % (47.0-73.0); PLATELET COUNT AUTOMATED 85 10*3/uL (130-400); RED BLOOD COUNT 2.11 10*6/uL (4.10-5.10)
[2018-08-22 07:04] LABS: CREATININE 1.2 mg/dL (0.55-1.02); POTASSIUM 4.4 mmol/L (3.5-5.1)
[2018-08-22] MEDS ORDERED: ALDACTONE100 MG PO (08:27)
[2018-08-22] MEDS ORDERED: COREG12.5 M1 PO (08:28)
--- NOTE | 2018-08-22 09:00 | NUR ---
Sox Analyst in to see patient. Discussed home health care services as therapy suggested therapy at home. Pt refuses any home health care services . She states she has a daughter and a niece that can help her. When medically stable she will be discharged to home.
[2018-08-22 09:04] LABS: FERRITIN 308.9 ng/mL (10.0-291.0)
--- NOTE | 2018-08-22 09:08 | NUR ---
PHYSICAL THERAPY Patient presented to therapy in supine wit hhead of bed slightly elevated and NO bed alarm on. Patient has no complaints. Patient was identified by name and . Patient performed ALL transfers with SBA. Patient performed ambulation with no assistive device and REGULATORY AFFAIRS ASSISTANT X 1 for 428' x 1 with no LOB and improving endurance. Patient transferred back to supine in bed with SBA. Patient is scheduled to have a blood transfusion and a colonoscopy today. Patient was left in supine position wit hhead of bed elevated, call light within reach, and NO bed alarm activated because she is Independent going to restroom throughout the day. Patient was left with call light within reach. Patient was 1:1 with this BUCKLE SORTER for 15 minutes total. SRIKANTH SURESH BUCKLE SORTER
--- NOTE | 2018-08-22 10:45 | NUR ---
Informed consent obtained from patient for Blood transfussion by Dr. PAULINO. Patient identified by arm band. Vital signs recorded. Blood unit number verified by 2 R.N.'s. I.V. site satisfactory. Unit 1 started at a KVO rate with Normal Saline. CLEOPATRA GARCIA
--- NOTE | 2018-08-22 12:36 | NUR ---
NOTIFIED DR PAULINO OF DYSTOLIC NUMBERS OF BLOOD PRESSURE AND HR WHILE RECIEVING BLOOD. ORDERS RECIEVED TO D/C COREG. PT DAUGHTER UPSET AND STATED "THE LAST TIME THEY STOPPED THAT MED SHE FILLED UP WITH FLUID".
--- NOTE | 2018-08-22 13:54 | NUR ---
TRANSFUSION COMPLETED. PT TOLERATED WELL.
--- NOTE | 2018-08-22 18:37 | NUR ---
Patient resting quietly with no c/o discomfort. Respirations easy and regular. Vital signs stable. No overt distress. CLEOPATRA GARCIA
[2018-08-23] VITALS: BP 100/41
--- NOTE | 2018-08-23 02:35 | NUR ---
24 HR chart check completed.
--- NOTE | 2018-08-23 03:08 | NUR ---
PATIENT RESTING WITH EYES CLOSED AT THIS TIME. RESPIRATIONS EASY. NO DISTRESS NOTED. CALL [place] WITHIN REACH. CONTINUE TO MONITOR.
[2018-08-23 06:55] LABS: HEMATOCRIT 24.4 % (37.0-47.0); HEMOGLOBIN 8.6 g/dl (12.0-16.0)
--- NOTE | 2018-08-23 09:00 | NUR ---
Product Representative in to see patient. No new needs or request at this time. She denies any home needs. When medically stable she will be discharged to home.
--- NOTE | 2018-08-23 09:52 | NUR ---
PHYSICAL THERAPY Patient presented to therapy in standing position at sink in patient's room with no complaints and reporting she will be going for an EEG later. Patient is Independent in room going to and from bathroom on her own throughout the day. Patient ambulated 300' x 1 with no assistive device and DOOR TENDER X 1 with no LOB or other difficulty. Patient transfers in and out of bed INDEPENDENTLY. Patient was left sitting on EOB with call light within reach. Patient tolerated gait well with no LOB or SOB noted. Patient was 1:1 with this ENCEPHALOGRAPHER for 14 minutes total. SRIKANTH SURESH ENCEPHALOGRAPHER
[2018-08-23 12:00] VITALS: BP 117/47
--- NOTE | 2018-08-23 14:36 | NUR ---
PHYSICAL THERAPY Patient presented to therapy this afternoon in supine with no concerns or complaints. Patient agrees to therapy session. Patient was identified by name and . Patient says she feels much better and stronger. Patient performed all transfers INDEPENDENTLY. Patient ambulated 428' x 1 with CGA X 1 with no LOB or other difficulty. Patient was left in sitting at EOB with call light within reach and patient's family member visiting in room. Patient was 1:1 with this CHYRON OPERATOR for 12 minutes total. SRIKANTH SURESH CHYRON OPERATOR
[2018-08-23 16:00] VITALS: BP 120/40
[2018-08-23 20:00] VITALS: BP 121/46
--- NOTE | 2018-08-23 22:45 | NUR ---
24 HR chart check completed.
[2018-08-24] VITALS (9 sets, daily range): BP systolic 101–126; BP diastolic 35–50
--- NOTE | 2018-08-24 09:00 | NUR ---
Hot Metal Car Operator in to see patient. Pt refuses any home health care services . She states she has a daughter and a niece that can help her. When medically stable she will be discharged to home.
--- NOTE | 2018-08-24 09:42 | NUR ---
PATIENT TAKEN DOWN FOR SCHEDULED EGD/COLO.
--- NOTE | 2018-08-24 10:12 | NUR ---
PHYSICAL THERAPY Patient is now in surgery for colonoscopy and EEG. Will check later. SRIKANTH SURESH BINDER LOCKSTITCH
--- NOTE | 2018-08-24 11:58 | NUR ---
PATIENT RETURNED TO FLOOR AT THIS TIME.
--- NOTE | 2018-08-24 12:55 | NUR ---
FAMILY UPDATED ON PLAN OF CARE.
--- NOTE | 2018-08-24 13:36 | NUR ---
PHYSICAL THERAPY Patient presented to therapy in supine wit hno concerns or complaints. Patient had the colonoscopy this morning and an EEG. Patient says she is feeling good this afternoon and wants to walk. Patient agrees to therapy session. Patient was identified by name and . Patient performed all transfers INDEPENDENTLY. Patient ambulated 428' x 1 with Close Supervision. Patient performed sitting bilateral LE THER EX 2 X 10 REPS EACH in all planes of movement for strengthening in order to improve patient's functional mobility. Patient performed x 10 sit to stands from EOB with CLOSE SUERVISION. Patient is INDEPENDENT in room throughout the day. Patient was 1:1 with this ACUTE CARE ASSISTANT for 20 minutes total. SRIKANTH SURESH ACUTE CARE ASSISTANT
--- NOTE | 2018-08-24 16:00 | NUR ---
Patient resting quietly with no c/o discomfort. Respirations easy and regular. Vital signs stable. No overt distress. JEAN PIERRE PALMER
[2018-08-25] VITALS: BP 117/45
[2018-08-25 08:00] VITALS: BP 117/44; BP 117/74
--- NOTE | 2018-08-25 10:36 | NUR ---
PATIENT RESTING QUIETLY IN BED. NO VOICED COMPLAINTS. RESPIRATIONS EASY, REGULAR. WILL MONITOR. CALL LIGHT WITHIN REACH.
--- NOTE | 2018-08-25 10:40 | NUR ---
PHYSICAL THERAPY Patient seen this am 1:1 for therapy visit and was sitting up in bedside chair upon therapist arrival. Patient was very pleasant, voicing no new c/o's, completing seated B LE therex, all planes x 15 reps each to improve LE strength / ROM. Patient transfers sit to stand CGA and ambulates PROFESSIONAL BASS FISHER/CGA, 60'x 2, demonstrating a slow, steady becky. Patient also able to walk backwards and completed eyes open/closed with LOB. Patient returned to bedside chair with only mild fatigue and no new c/o's reported. Patient remained in chair with call light, tray table and telephone. Will continue per POC as tolerated, total treatment time 18 minutes. Viet Morales, POLICY AND PLANNING MANAGER
[2018-08-25 12:00] VITALS: BP 144/50
[2018-08-25 16:00] VITALS: BP 134/49; BP 94/68
--- NOTE | 2018-08-25 18:51 | NUR ---
IN TO SEE PATIENT.
--- NOTE | 2018-08-25 20:00 | NUR ---
PATIENT DISCHARGED. IV REMOVED AND PRESSURE DRESSING APPLIED. HEART MONITOR REMOVED AND RETURNED TO FLOOR. VERBALIZED UNDERSTANDING OF DISCHARGE INSTRUCTIONS.
--- NOTE | 2018-08-26 07:54 | NUR ---
PHYSICAL THERAPY CO-SIGN I approve of the Phyical Therapy notes written above. DANE NICHOLSON PT
== END 2018-08-25 20:11 | disposition home or self-care (01) | DRG 683 ==
LOC: ED 17:41 → 4E 20:00 → EDHOLD 20:00 → 4E 20:21
PROVIDERS: Internal Medicine; Internal Medicine Gastroenterology; Nurse Practitioner Family; ADMIT Internal Medicine
PROC: 30233N1 Transfusion of Nonautologous Red Blood Cells into Peripheral Vein, Percutaneous Approach (ICD-10-PCS; principal; 2018-08-22)
PROC: 0DB68ZX Excision of Stomach, Via Natural or Artificial Opening Endoscopic, Diagnostic (ICD-10-PCS; 2018-08-24)
PROC: 0DJD8ZZ Inspection of Lower Intestinal Tract, Via Natural or Artificial Opening Endoscopic (ICD-10-PCS; 2018-08-24)
DX: N17.0 Acute kidney failure with tubular necrosis (principal); D61.818 Other pancytopenia; I13.0 Hypertensive heart and chronic kidney disease with heart failure and stage 1 through stage 4 chronic kidney disease, or unspecified chronic kidney disease; E87.5 Hyperkalemia; K44.9 Diaphragmatic hernia without obstruction or gangrene; K29.70 Gastritis, unspecified, without bleeding; K72.10 Chronic hepatic failure without coma; I50.9 Heart failure, unspecified; E11.22 Type 2 diabetes mellitus with diabetic chronic kidney disease; E86.0 Dehydration; N18.3 Chronic kidney disease, stage 3 (moderate); K75.81 Nonalcoholic steatohepatitis (NASH); K74.60 Unspecified cirrhosis of liver; R00.1 Bradycardia, unspecified; R62.7 Adult failure to thrive; D50.0 Iron deficiency anemia secondary to blood loss (chronic); Z98.51 Tubal ligation status; Z98.49 Cataract extraction status, unspecified eye; Z82.49 Family history of ischemic heart disease and other diseases of the circulatory system; Z83.3 Family history of diabetes mellitus

== ENCOUNTER → 2018-10-11 | Outpatient (CLI) | payer OTHER ==
[2018-10-11 10:08] LABS: CREATININE 1.34 mg/dL (0.55-1.02); POTASSIUM 4.5 mmol/L (3.5-5.1)
== END | disposition home or self-care (01) ==
LOC: LAB 08:55
PROVIDERS: Internal Medicine Cardiovascular Disease
DX: I50.9 Heart failure, unspecified (principal)

== ENCOUNTER 2019-03-05 10:51 | Inpatient (IN) | payer OTHER ==
[~2019-03-05] VITALS: Ht 162.5 cm; Wt 82.7 kg
--- NOTE | ~2019-03-05 | PR ---
[place], [place] PROGRESS NOTE NAME: GABRIEL LYNCH UNIT #: [id number] ROOM: 509 DOCTOR: ANGELA PAULINO MD BIRTHDATE: [birth year] DOS: 03/05/2019 SUBJECTIVE: The patient is resting comfortably, does not have any complaints. OBJECTIVE: VITAL SIGNS: Graphic trend shows a pressure of 125/47, pulse of 66, respirations 18, temperature 98.4. LUNGS: Clear. HEART: Regular. ABDOMEN: Obese, soft, nontender. EXTREMITIES: Without any edema. Awake and alert and oriented. Answers questions appropriately. LABORATORY DATA: Ammonia level is down to 44. White cell count is normal at 6.3, hemoglobin 9.7, hematocrit 26.8, glucose 153, BUN 32, creatinine 1.41, sodium 143, potassium 3.5, chloride 116, bicarbonate 21, calcium 7.8. Blood culture 1 bottle drawn on admission has shown gram-positive cocci, no identification yet. ASSESSMENT AND PLAN: 1. Sepsis pattern with blood cultures now growing gram-positive cocci in 1 bottle. She is only on Rocephin. I am awaiting the final sensitivity and repeat blood cultures drawn yesterday to see whether this is a true infection. 2. Hepatorenal syndrome. Kidney functions have improved with electrolyte abnormalities have also corrected, we will discontinue intravenous fluids. 3. Benign hypertension. Restart amlodipine. 4. Hepatic encephalopathy, resolving with the dropping ammonia levels. 5. Adult failure to thrive. The patient has refused a PT consult as well as suggestion about SNF. ANGELA PAULINO MD CM:PNTRANS [id number] ANGELA PAULINO MD 03/08/19 1400 interface
--- NOTE | ~2019-03-05 | PR ---
[place], [place] PROGRESS NOTE NAME: GABRIEL LYNCH UNIT #: [id number] ROOM: 509 DOCTOR: ANGELA PAULINO MD BIRTHDATE: [birth year] DOS: 03/09/2019 SUBJECTIVE: The patient is sitting up in a chair, eating breakfast, awake and alert and oriented, in no distress. OBJECTIVE: VITAL SIGNS: Graphic trend shows a pressure 138/65, pulse of 63, respirations 20, temperature 97.7. LUNGS: Diminished breath sounds. Clear. HEART: Regular. ABDOMEN: Obese, soft, nontender. EXTREMITIES: Without any edema. LABORATORY DATA: Ammonia is 59 this morning. BMP: Glucose 119, BUN 26, creatinine 1.29, sodium 142, potassium 3.5, chloride 116, bicarbonate 17. ASSESSMENT AND PLAN: 1. Sepsis pattern. The patient does have gram-positive cocci in one of the cultures drawn on 03/05/2019. We do not have the identification on that yet. Blood cultures were again repeated on 03/07/2019. Again, this has not been completed either, so we are still awaiting for those results to come back to decide on discharge planning. 2. Hepatic encephalopathy, improving. Ammonia level is slightly high this morning. We will readjust the lactulose dosage. 3. Acute kidney injury from hepatorenal syndrome. This is much better. She is back to her stable creatinine level with a GFR of 41. 4. Benign hypertension, controlled. Restarted her blood pressure medications, but avoid too many diuretics. ANGELA PAULINO MD CM:PNTRANS 3 ANGELA PAULINO MD 03/09/1922 interface
--- NOTE | ~2019-03-05 | DS ---
[place], [place] DISCHARGE SUMMARY NAME: GABRIEL LYNCH UNIT #: [id number] ROOM: 509 DOCTOR: LORA GILLANGELA BIRTHDATE: [birth year] DOS: 03/10/2019 DIAGNOSES: 1. Sepsis with Staphylococcus hominis on one bottle drawn on admission. A second bottle was negative and the repeat cultures on 03/07/2019 was negative. 2. Hepatic encephalopathy. 3. Hepatorenal syndrome. 4. Adult failure to thrive, refuses physical therapy or SNF placement. 5. Nonalcoholic steatohepatitis with cirrhosis of liver. 6. Type 2 diabetes mellitus, insulin-dependent. 7. Portal hypertension with esophageal varices ligation in 2013. 8. Chronic bradycardia. DISCHARGE MEDICATIONS: Lactulose, which is increased to 40 grams t.i.d., Zyvox 600 b.i.d. for 7 days, insulin sliding scale, Lantus 45 units at bedtime, spironolactone 25 daily, amlodipine 5 daily, vitamin D 1000 units daily. Discontinue meds are Lasix, lisinopril/hydrochlorothiazide, Coreg. HOSPITAL COURSE: This patient is 68 years old. The patient comes in with confusion. Please refer to H and P dictated as well as several note for the next few days for details. After admission, placed on IV fluids, lactulose, IV antibiotics. She had sepsis pattern. Lactic acidosis improved. Blood cultures one set drawn on 03/05/2019 grew Staph ominous. Repeat cultures as well as the second set have all come back negative. The patient does not have any evidence of any ongoing toxicity. Has not had any fevers. White cell count is normal. Kidney functions have slowly improved. Ammonia levels have slowly improved. IV fluids were since been discontinued. She was restarted on some of her home medications, but avoid too many diuretics in this patient. The patient is stable this morning. The plan is to discharge her to home. She has refused PT, OT and does not want to consider fci home. The plan is to discharge to home today. Follow up with Dr. Woods as an outpatient for repeat blood work next week. DISCHARGE MEDICATIONS: As above. Avoid nephrotoxic medications. [place], [place] DISCHARGE SUMMARY NAME: GABRIEL LYNCH UNIT #: [id number] ROOM: 509 DOCTOR: ANGELA PAULINO MD BIRTHDATE: [birth year] ANGELA PAULINO MD CM:RITU [id number] ANGELA PAULINO MD 03/10/19 1554 interface
--- NOTE | ~2019-03-05 | PR ---
[place], [place] PROGRESS NOTE NAME: GABRIEL LYNCH UNIT #: [id number] ROOM: 509 DOCTOR: ANGELA PAULINO MD BIRTHDATE: [birth year] DOS: 03/10/2019 SUBJECTIVE: The patient is doing well, does not have any complaints. OBJECTIVE: VITAL SIGNS: Graphic trend shows a pressure of 107/39, pulse is 78, respirations 16, temperature 97.3. LUNGS: Clear. HEART: Regular. ABDOMEN: Obese. EXTREMITIES: Without any edema. LABORATORY DATA: Glucose 93, BUN 27, creatinine 1.36, sodium 141, potassium 3.8, chloride 116, bicarbonate 17. Ammonia level is 44. Blood cultures the one bottle on 03/05/2019 grew Staph hominis. The other bottle was normal. The second set of cultures done on 02/2017 shows no bacterial growth. ASSESSMENT AND PLAN: 1. Sepsis with Staphylococcus hominis on one bottle could be a contaminant, but we will treat with Zyvox. Rest of the medicines may be toxic because of her chronic kidney and liver disease. 2. Hepatic encephalopathy with elevated ammonia levels back to her normal. 3. Hepatorenal syndrome, which is improving and back to her baseline kidney functions, a GFR of 38, creatinine 1.36. 4. Adult failure to thrive. The patient is refusing physical therapy. The plan is to discharge to her home today. Follow up as an outpatient. Urine culture was refluxed on admission, but has not shown any bacterial growth. ANGELA PAULINO MD CM:PNTRANS [id number] ANGELA PAULINO MD 03/11/19 0021 interface
--- NOTE | ~2019-03-05 | WRIGHTHP ---
[place], [place] PATIENT HISTORY AND PHYSICAL EXAM [id number] UNIT #: [id number] ROOM: 509 DOCTOR: ANGELA PAULINO MD BIRTHDATE: [birth year] DOS: HISTORY OF PRESENT ILLNESS: The patient is 68 years old, not known to me. The patient comes in after getting confused at home. Family thought that the ammonia level may be high because of ongoing liver disease, so they brought her to the Emergency Room, was found to have an ammonia of 109 with acute kidney injury. She was admitted with diagnosis of hepatic encephalopathy. The patient this morning is much more awake and alert and oriented, does not have any new complaints. Denies having any chest pains, palpitations or shortness of breath. Answers questions appropriately. PAST MEDICAL HISTORY: Significant for; 1. Nonalcoholic steatohepatitis. 2. Cirrhosis of liver. 3. Hepatic encephalopathy with admission in 08/2018. 4. Pancytopenia. 5. Benign hypertension. 6. History of acute kidney injury from acute tubular necrosis. 7. Type 2 diabetes mellitus, poorly controlled with chronic kidney disease. 8. History of portal hypertension, esophageal varices with ligation in 2013. 9. Bradycardia. MEDICATIONS: She is currently on are Coreg 6.25 twice a day; amlodipine 5 daily; Lasix 40 daily; lactulose 20 grams t.i.d.; lisinopril/hydrochlorothiazide, Zestoretic 20/12.5 two tablets daily; spironolactone 25 daily; insulin 40 subcu bedtime; lispro sliding scale. SOCIAL HISTORY: Nonsmoker, does not use any alcohol. PHYSICAL EXAMINATION: GENERAL: She is awake and alert and oriented. VITAL SIGNS: Graphic trend shows a pressure of 80/38, pulse of 59, respirations 16, temperature 97.7. LUNGS: Clear. HEART: Regular. ABDOMEN: Obese, soft, nontender. EXTREMITIES: Without any edema. LABORATORY DATA: At the time of admission; ammonia is 109. WBC count is 7.9, hemoglobin 12.4, platelets 177. Chest x-ray, no pathology. Comprehensive glucose 147, BUN 77, creatinine 3.28. Sodium 140, potassium 4.2, chloride 106, bicarbonate 24, magnesium 2.5, bilirubin 2.7. SGOT is 54. Lactic acid is 2.7. Urinalysis reflux. ASSESSMENT AND PLAN: 1. Nonalcoholic steatohepatitis with cirrhosis of liver and hepatic encephalopathy. Continue monitoring the ammonia levels. 2. The patient will be started on lactulose higher doses. 3. Hypotension, possibly from mild acute kidney injury, which is also possibly from acute tubular necrosis. We will discontinue all her medications for right [place], [place] PATIENT HISTORY AND PHYSICAL EXAM NAME: GABRIEL LYNCH UNIT #: [id number] ROOM: [facility] DOCTOR: ANGELA PAULINO MD BIRTHDATE: [birth year] now. Vigorous IV hydration will be given. 4. Bradycardia. Decrease dose of Coreg, also avoid the multiple diuretics that she is on. 5. Lactic acidosis, possibly from sepsis, path cultures are pending. With IV fluids, the lactic acid level has come down. ANGELA PAULINO MD CM:HISPHYS:PATIENT HISTORY AND PHYSICAL EXAMINATION 7 ANGELA PAULINO MD [birth year]/06/1915 interface
--- NOTE | ~2019-03-05 | PR ---
[place], [place] PROGRESS NOTE NAME: GABRIEL LYNCH UNIT #: [id number] ROOM: 509 DOCTOR: ANGELA PAULINO MD BIRTHDATE: [birth year] DOS: 03/07/2019 SUBJECTIVE: The patient is about the same, does not have any new complaints. OBJECTIVE: VITAL SIGNS: Blood pressure is 128/53, pulse of 40-60, respirations 18, temperature 97.8. LUNGS: Clear. HEART: Regular. ABDOMEN: Obese, soft, and nontender. EXTREMITIES: Without any edema. LABORATORY DATA: This morning, ammonia is down to 75. Comprehensive glucose 165, BUN 50, creatinine 1.77, sodium 147, potassium 3.6, chloride 118, bicarbonate 22. WBC count is 6.0, hemoglobin 10.0. Urinalysis refluxed to culture not completed yet. ASSESSMENT AND PLAN: 1. Hepatic encephalopathy. Ammonia level slowly coming down. 2. Hepatorenal syndrome with acute kidney injury. Kidney functions are improving. Hopefully, back to normal by tomorrow. Because of electrolyte imbalance with increasing sodium and chloride, change of fluids to D5 and water at 50 mL an hour for 24 hours. Repeat labs in the morning. PT/OT will be consulted. The patient should be able to go home tomorrow. ANGELA PAULINO MD CM:PNTRANS 1 ANGELA PAULINO MD 03/07/19 0910 interface
--- NOTE | ~2019-03-05 | EKG ---
[place], [place] ELECTROCARDIOGRAM REPORT NAME: GABRIEL LYNCH UNIT #: [id number] ROOM: 509 DOCTOR: ALEXIA DRAFT REPORT BIRTHDATE: [birth year] [facility] [place] [facility] Test Date: 2019-03-05 Test Time: 11:07:40 Pat Name: GABRIEL LYNCH Department: Room: 509 Gender: F Geological Drafter: Tanya Damian : 1950 Requested By: RIP HOWARD Order Number: [id number] Reading MD: Nancy Clayton Measurements Intervals [place] Rate: 53 P: 45 FL: 168 QRS: 12 QRSD: 84 T: 21 QT: 475 QTc: 446 Interpretive Statements Sinus ryan Compared to ECG 08/16/2018 19:42:29 ST (T wave) deviation no longer present Electronically Signed On 03-06-2019 11:53:44 PDT by Nancy Clayton CM:EKGRPT:ELECTROCARDIOGRAM REPORT [id number] RIP ANTONY DRAFT REPORT RIP HOWARD DO
[2019-03-05 04:15] VITALS: BP 107/47
[2019-03-05 10:52] VITALS: BP 89/48
[2019-03-05 12:00] LABS: BASO # 0.1 10*3/uL (0.0-0.1); BASO % 0.6 % (0.0-1.0); EOS # 0.3 10*3/uL (0.0-0.4); EOS % 3.2 % (1.0-4.0); HEMATOCRIT 34.4 % (37.0-47.0); HEMOGLOBIN 12.4 g/dl (12.0-16.0); LYMPH # 1.3 10*3/uL (1.3-4.4); LYMPH % 16.3 % (27.0-41.0); MEAN CELL VOLUME 84.7 fl (81.0-99.0); MEAN CORPUSCULAR HGB 30.5 pg (27.0-31.0); MEAN PLATELET VOLUME 11.4 fl (9.6-12.3); MONO # 0.8 10*3/uL (0.1-1.0); NEUT # 5.5 10*3/uL (2.3-7.9); NEUT % 69.6 % (47.0-73.0); PLATELET COUNT AUTOMATED 177 10*3/uL (130-400); RED BLOOD COUNT 4.06 10*6/uL (4.10-5.10); RED CELL DISTRI WIDTH 12.9 % (0-14.5); WHITE BLOOD COUNT 7.9 10*3/uL (4.8-10.8)
[2019-03-05 12:11] LABS: ACT PARTIAL THROMBO TIME 24.4 SECONDS (20.0-32.1); INTERNATIONAL NORM RATIO 1.1 (2.0-3.5)
[2019-03-05 12:18] LABS: ALBUMIN 3.1 gm/dl (3.1-4.5); ALKALINE PHOSPHATASE 90 U/L (45-117); BUN 77 mg/dl (7-24); CHLORIDE 106 mmol/L (98-107); CREATININE 3.28 mg/dL (0.55-1.02); LIPASE 302 U/L (73-393); POTASSIUM 4.2 mmol/L (3.5-5.1); SGOT/AST 54 IU/L (3-35); SGPT/ALT 31 U/L (12-78); SODIUM 140 mmol/L (136-145)
[2019-03-05 12:21] LABS: TROPONIN I < 0.015 ng/ml (<0.045)
[2019-03-05 14:20] LABS: BILIRUBIN NEGATIVE (NEGATIVE); BLOOD TRACE-INTACT (NEGATIVE); CLARITY SL CLOUDY (CLEAR); COLOR YELLOW (YELLOW); GLUCOSE NEGATIVE (NEGATIVE); KETONE NEGATIVE (NEGATIVE); LEUKO ESTERASE NEGATIVE (NEGATIVE); NITRITE NEGATIVE (NEGATIVE); PH 5.5 (5.0-9.0)
[2019-03-05 14:28] LABS: HYALINE CAST 15-20; MUCOUS 1+
[2019-03-05 17:30] VITALS: BP 91/32
[2019-03-05 19:00] VITALS: BP 94/37
--- NOTE | 2019-03-05 19:55 | NUR ---
PROVIDED PATIENT WITH BOX LUNCH AT THIS TIME. FAMILY AT THE BEDSIDE. PATIENT SITTING UP IN BED EATING. RESPIRATIONS EASY, NON-LABORED ON ROOM AIR. NO DISTRESS NOTED. RN WILL CONTINUE TO MONITOR.
--- NOTE | 2019-03-05 21:19 | NUR ---
MESSAGE LEFT FOR DR PAULINO AT THIS TIME TO CALL BACK FOR ORDERS.
--- NOTE | 2019-03-06 03:00 | NUR ---
PATIENT RESTING QUIETLY IN BED AT THIS TIME. RESPIRATIONS EASY, NON-LABORED ON ROOM AIR. IVF INFUSING PER ORDERS. NO DISTRESS NOTED. RN WILL CONTINUE TO MONITOR.
[2019-03-06 04:00] VITALS: BP 91/32
--- NOTE | 2019-03-06 04:15 | NUR ---
A 68, admitted to 5E, under the services of ANGELA Michelle MD with a diagnosis of ARF,HEPATIC ENCEPHALOPATHY. Chief complaint is CONFUSION. Patient arrived via bed from ER. Monitor applied. Initial assessment completed. Vital signs taken and recorded. ANGELA MICHELLE MD notified of admission to the unit. Orders received. See assessment for past medical history, medications and allergies. Patient and/or family oriented to unit. [facility] visitation policy reviewed. Clothing/patient valuable form completed. CLEOPATRA GARCIA
[2019-03-06] MEDS ORDERED: ALDACTONE25 M1 PO (04:43)
[2019-03-06] MEDS ORDERED: CEPHULAC10 GM/151 PO (04:46)
[2019-03-06] MEDS ORDERED: AMLODIPINE BESYL5 MG PO (04:48)
[2019-03-06] MEDS ORDERED: VITAMIN D31000 UNI1 PO (04:48)
[2019-03-06] MEDS ORDERED: ZESTORETIC 20-1 EACH PO (04:49)
[2019-03-06] MEDS ORDERED: FUROSEMIDE40 MG PO (04:49)
[2019-03-06] MEDS ORDERED: COREG6.25 MG PO (04:50)
--- NOTE | 2019-03-06 04:50 | NUR ---
PATIENT HOME MEDS UPDATED VIA MEDICATION CLAIM HISTORY.
[2019-03-06 06:52] LABS: CREATININE 2.79 mg/dL (0.55-1.02); POTASSIUM 3.8 mmol/L (3.5-5.1)
--- NOTE | 2019-03-06 06:56 | NUR ---
NOTIFIED DR PAULINO OF CRITICAL NH3 OF 86.
[2019-03-06 07:53] VITALS: BP 80/38
--- NOTE | 2019-03-06 08:05 | NUR ---
NOTIFIED OF BP 500CC NS BOLUS GIVEN OUT OF NORMAL SALINE ALREADY RUNNING THEN CONTINUE NS AT 100ML/R
--- NOTE | 2019-03-06 10:30 | NUR ---
Salesperson Women'S Dresses in to talk to patient. Patient states lives at home with her daughter. There are 0 steps in the home. Physician: Dr. Chevy Woods [facility]: [facility] Home health services: none Patient's level of ADLs: INDEPENDENT Patient has working utilities: yes DME: none Follow-up physician's appointment after d/c: she prefers to make her own follow up appt after discharge Does patient want to access PORTAL?: no Discharge plan discussed with patient. She lives at home with her daughter. She is independent in her ADLs and ambulation. Discussed home health care services and she denies any home health needs at this time. When medically stable she will be discharged to home. Daughter will transport on discharge. ANTIONE NEVAREZ
[2019-03-06 12:00] VITALS: BP 116/43
[2019-03-06 16:00] VITALS: BP 128/55
[2019-03-06 20:00] VITALS: BP 123/49
--- NOTE | 2019-03-06 22:17 | NUR ---
24 HR chart check completed.
[2019-03-07] VITALS: BP 128/53
[2019-03-07 07:01] LABS: BASO # 0.1 10*3/uL (0.0-0.1); EOS # 0.3 10*3/uL (0.0-0.4); HEMATOCRIT 27.7 % (37.0-47.0); LYMPH # 1.3 10*3/uL (1.3-4.4); LYMPH % 21.7 % (27.0-41.0); MEAN CELL VOLUME 85.5 fl (81.0-99.0); MEAN CORPUSCULAR HGB 30.9 pg (27.0-31.0); MEAN CORPUSCULAR HGB CONC 36.1 g/dl (33.0-37.0); MONO # 0.8 10*3/uL (0.1-1.0); MONO % 13.4 % (3.0-9.0); NEUT # 3.5 10*3/uL (2.3-7.9); NEUT % 58.6 % (47.0-73.0); PLATELET COUNT AUTOMATED 136 10*3/uL (130-400); RED BLOOD COUNT 3.24 10*6/uL (4.10-5.10)
[2019-03-07 07:18] LABS: ALBUMIN 2.7 gm/dl (3.1-4.5); CREATININE 1.77 mg/dL (0.55-1.02); POTASSIUM 3.6 mmol/L (3.5-5.1)
[2019-03-07 07:46] VITALS: BP 128/53
--- NOTE | 2019-03-07 11:00 | NUR ---
Physician Assistant in to see patient. Discussed home health care services and she states she doesn't need any home health care services at home. her daughter and sister take care of her. Notified manager social responsibility. When medically stable she will be discharged to home.
--- NOTE | 2019-03-07 11:15 | NUR ---
PHYSICAL THERAPY Physical therapy evaluation attempted. Patient refused and stated, "I told them I do not want any". Will attempt skilled PT evaluation at a later date. Thank you, Bella Hernandes, SPT Katelynn Marcano,PT,DPT
[2019-03-07 12:00] VITALS: BP 109/32; BP 147/66
--- NOTE | 2019-03-07 12:10 | NUR ---
PATIENT'T NURSE CHAPITO-RN INFORMED OF FINGERSTICK NXV=[id number]. STATED OK.
[2019-03-07 16:00] VITALS: BP 116/64
[2019-03-07 20:00] VITALS: BP 138/49
--- NOTE | 2019-03-07 20:57 | NUR ---
NOTIFIED OF POSITIVE BLOOD CULTURES. NEW ORDER RECEIVED FOR REPEAT BLOOD CULTURES NOW.
[2019-03-08] VITALS: BP 125/47
[2019-03-08 06:24] LABS: CREATININE 1.41 mg/dL (0.55-1.02); POTASSIUM 3.5 mmol/L (3.5-5.1)
[2019-03-08 06:40] LABS: BASO # 0.1 10*3/uL (0.0-0.1); BASO % 0.8 % (0.0-1.0); EOS # 0.3 10*3/uL (0.0-0.4); EOS % 5.4 % (1.0-4.0); HEMATOCRIT 26.8 % (37.0-47.0); HEMOGLOBIN 9.7 g/dl (12.0-16.0); LYMPH # 1.4 10*3/uL (1.3-4.4); LYMPH % 22.3 % (27.0-41.0); MEAN CELL VOLUME 85.6 fl (81.0-99.0); MEAN CORPUSCULAR HGB CONC 36.2 g/dl (33.0-37.0); MEAN PLATELET VOLUME 10.7 fl (9.6-12.3); MONO # 0.7 10*3/uL (0.1-1.0); MONO % 11.4 % (3.0-9.0); NEUT # 3.8 10*3/uL (2.3-7.9); NEUT % 59.6 % (47.0-73.0); PLATELET COUNT AUTOMATED 121 10*3/uL (130-400); RED BLOOD COUNT 3.13 10*6/uL (4.10-5.10); WHITE BLOOD COUNT 6.3 10*3/uL (4.8-10.8)
[2019-03-08 08:00] VITALS: BP 130/50
--- NOTE | 2019-03-08 11:00 | NUR ---
Planning Assistant in to see patient. No new needs or request at this time. She denies any home needs. When medically stable she will be discharged to home.
[2019-03-08 12:00] VITALS: BP 119/64
--- NOTE | 2019-03-08 12:16 | NUR ---
PT UP IN CHAIR. REMAINS ALERT/ORIENTED X3. NO DISTRESS NOTED. NO VOICED COMPLAINTS. PT STATES LESS DIARRHEA. ROUTINE LACTULOSE GIVEN. WILL CONTINUE TO MONITOR. CALL LIGHT WITHIN REACH.
--- NOTE | 2019-03-08 15:03 | NUR ---
PHYSICAL THERAPY Physical therapy evaluation attempted. Patient reports she is independent throughout the room and does not need physical therapy at this time. Please discharge PT orders. Thank you, Bella Hernandes,SPT Katelynn Marcano,PT,DPT
[2019-03-08 16:00] VITALS: BP 124/48
--- NOTE | 2019-03-08 17:33 | NUR ---
PT IN RECLINER CHAIR. NO DISTRESS NOTED. DENIES ANY PAIN/DISCOMFORT AT THIS TIME. GOOD APPETITE FOR DINNER. PT REMAINS ALERT AND ORIENTED X3. WILL CONTINUE TO MONITOR. VSS. CALL LIGHT WITHIN REACH.
[2019-03-08 20:00] VITALS: BP 117/45
[2019-03-09] VITALS: BP 113/41
--- NOTE | 2019-03-09 02:01 | NUR ---
24 HR chart check completed.
[2019-03-09 06:09] LABS: BASO # 0.1 10*3/uL (0.0-0.1); BASO % 0.7 % (0.0-1.0); EOS # 0.4 10*3/uL (0.0-0.4); EOS % 5.3 % (1.0-4.0); HEMATOCRIT 25.5 % (37.0-47.0); HEMOGLOBIN 9.3 g/dl (12.0-16.0); LYMPH # 1.4 10*3/uL (1.3-4.4); LYMPH % 21.1 % (27.0-41.0); MEAN CELL VOLUME 83.3 fl (81.0-99.0); MEAN CORPUSCULAR HGB 30.4 pg (27.0-31.0); MEAN CORPUSCULAR HGB CONC 36.5 g/dl (33.0-37.0); MEAN PLATELET VOLUME 10.5 fl (9.6-12.3); MONO # 0.8 10*3/uL (0.1-1.0); MONO % 12.3 % (3.0-9.0); NEUT # 4.1 10*3/uL (2.3-7.9); NEUT % 60.3 % (47.0-73.0); PLATELET COUNT AUTOMATED 121 10*3/uL (130-400); RED BLOOD COUNT 3.06 10*6/uL (4.10-5.10); RED CELL DISTRI WIDTH 13.1 % (0-14.5); WHITE BLOOD COUNT 6.7 10*3/uL (4.8-10.8)
[2019-03-09 06:31] LABS: CREATININE 1.29 mg/dL (0.55-1.02); POTASSIUM 3.5 mmol/L (3.5-5.1)
--- NOTE | 2019-03-09 06:35 | NUR ---
NOTIFIED DR. CLINE OF PATIENTS AMMONIA LEVEL OF 59. NEW ORDER RECIEVED FOR XIFAXIN 550MG BID
[2019-03-09 07:55] VITALS: BP 138/65
--- NOTE | 2019-03-09 11:00 | NUR ---
Heel Seat Laster in to see patient. She is sitting up in her bedside chair without distress noted. Discussed short term SNF and she refuses. Discussed home health care services and she refuses stating her sister and daughter help take care of her. Per multidisciplinary discharge planning meeting Dr. Lauren is waiting for repeat BC results that were taken on the as 1 bottle in the first set of cultures was positive. When medically stable she will be discharged to home.
[2019-03-09 12:00] VITALS: BP 144/51
--- NOTE | 2019-03-09 14:49 | NUR ---
PT UP IN CHAIR. NO DISTRESS NOTED. ROUTINE LACTULOSE GIVEN. NO VOICED COMPLAINTS. VISITORS PRESENT AT THIS TIME. WILL CONTINUE TO MONITOR.
[2019-03-09 16:00] VITALS: BP 127/62
[2019-03-09 20:00] VITALS: BP 134/49
--- NOTE | 2019-03-09 23:00 | NUR ---
ASSUMED CARE FOR THIS PT AT THIS TIME. PT RESTING QUIETLY IN BED W/EYES CLOSED. BED IN LOW POSITION W/WHEELS LOCKED AND ALARM ON. CALL LIGHT IN REACH.
[2019-03-10] VITALS: BP 107/39
[2019-03-10 07:12] LABS: CREATININE 1.36 mg/dL (0.55-1.02); POTASSIUM 3.8 mmol/L (3.5-5.1)
[2019-03-10] MEDS ORDERED: LACTULOSE20 GM/30 M PO (08:36)
[2019-03-10] MEDS ORDERED: ZYVOX600 MG PO (08:37)
--- NOTE | 2019-03-10 11:15 | NUR ---
Discharge instructions reviewed with patient/family. Patient receptive and verbalizes understanding. Follow-up care arranged. Written instructions given to patient/family. ABBY SOTOMAYOR
== END 2019-03-10 11:15 | disposition home or self-care (01) | DRG 871 ==
LOC: ED 10:51 → EDHOLD 14:52 → 5E 14:52
PROVIDERS: Emergency Medicine; ADMIT Internal Medicine
DX: A41.2 Sepsis due to unspecified staphylococcus (principal); K76.7 Hepatorenal syndrome; E87.2 Acidosis; I13.0 Hypertensive heart and chronic kidney disease with heart failure and stage 1 through stage 4 chronic kidney disease, or unspecified chronic kidney disease; N17.9 Acute kidney failure, unspecified; K74.60 Unspecified cirrhosis of liver; I95.9 Hypotension, unspecified; E11.22 Type 2 diabetes mellitus with diabetic chronic kidney disease; N18.9 Chronic kidney disease, unspecified; K75.81 Nonalcoholic steatohepatitis (NASH); R00.1 Bradycardia, unspecified; K72.90 Hepatic failure, unspecified without coma; R62.7 Adult failure to thrive; B96.89 Other specified bacterial agents as the cause of diseases classified elsewhere; E11.36 Type 2 diabetes mellitus with diabetic cataract; E86.0 Dehydration; I50.9 Heart failure, unspecified; Z82.49 Family history of ischemic heart disease and other diseases of the circulatory system; Z83.3 Family history of diabetes mellitus; Z98.51 Tubal ligation status; Z98.42 Cataract extraction status, left eye; Z79.899 Other long term (current) drug therapy; Z79.4 Long term (current) use of insulin; Z98.41 Cataract extraction status, right eye; Z68.29 Body mass index [BMI] 29.0-29.9, adult

== ENCOUNTER → 2019-06-19 | Outpatient (CLI) | payer OTHER ==
[~2019-06-19] MED LIST changes: +AMLODIPINE BESYL5 MG PO; +COREG6.25 MG PO; +VITAMIN D31000 UNI1 PO; +ZESTORETIC 20-1 EACH PO; +ZYVOX600 MG PO
[2019-06-19 11:12] LABS: CREATININE 1.72 mg/dL (0.55-1.02); POTASSIUM 3.8 mmol/L (3.5-5.1)
== END | disposition home or self-care (01) ==
LOC: LAB 10:28
PROVIDERS: Internal Medicine Cardiovascular Disease
DX: I50.9 Heart failure, unspecified (principal)

== ENCOUNTER → 2019-08-29 | Outpatient (CLI) | payer OTHER | END | disposition home or self-care (01) | LOC: CARD 14:54 | DX: I08.0 Rheumatic disorders of both mitral and aortic valves (principal); R06.02 Shortness of breath ==

== ENCOUNTER → 2019-09-04 | Outpatient (CLI) | payer OTHER ==
[2019-09-04 10:12] LABS: BASO # 0.1 10*3/uL (0.0-0.1); BASO % 1.1 % (0.0-1.0); EOS # 0.4 10*3/uL (0.0-0.4); EOS % 6.3 % (1.0-4.0); HEMATOCRIT 29.5 % (37.0-47.0); HEMOGLOBIN 10.5 g/dl (12.0-16.0); LYMPH # 1.2 10*3/uL (1.3-4.4); LYMPH % 18.6 % (27.0-41.0); MEAN CELL VOLUME 86.5 fl (81.0-99.0); MEAN CORPUSCULAR HGB 30.8 pg (27.0-31.0); MEAN CORPUSCULAR HGB CONC 35.6 g/dl (33.0-37.0); MEAN PLATELET VOLUME 10.3 fl (9.6-12.3); MONO # 0.7 10*3/uL (0.1-1.0); MONO % 11.4 % (3.0-9.0); NEUT # 3.9 10*3/uL (2.3-7.9); NEUT % 62.1 % (47.0-73.0); PLATELET COUNT AUTOMATED 141 10*3/uL (130-400); RED BLOOD COUNT 3.41 10*6/uL (4.10-5.10); RED CELL DISTRI WIDTH 12.5 % (0-14.5); WHITE BLOOD COUNT 6.2 10*3/uL (4.8-10.8)
[2019-09-04 10:47] LABS: ALBUMIN 2.8 gm/dl (3.1-4.5); CREATININE 1.9 mg/dL (0.55-1.02); FREE T4 0.94 ng/dl (0.76-1.46); TOTAL PROTEIN 6.1 gm/dL (6.4-8.2)
[2019-09-04 10:52] LABS: THYROID STIM HORMONE (HS) 2.41 uIU/ml (0.358-4.75)
[2019-09-04 10:53] LABS: VITAMIN D, 25-HYDROXY 26.2 ng/mL (30-100)
== END | disposition home or self-care (01) ==
LOC: LAB 09:31
PROVIDERS: Internal Medicine
DX: Z00.00 Encounter for general adult medical examination without abnormal findings (principal); I10 Essential (primary) hypertension; E11.65 Type 2 diabetes mellitus with hyperglycemia; E78.2 Mixed hyperlipidemia; E55.9 Vitamin D deficiency, unspecified

== ENCOUNTER 2019-11-21 16:51 | Inpatient (IN) | payer OTHER ==
[~2019-11-21] VITALS: Ht 162.5 cm; Wt 88.5 kg
[~2019-11-21 16:51] MED LIST changes: -VITAMIN D31000 UNI1 PO; +VITAMIN D350 MC2 PO
[2019-11-21 17:22] VITALS: BP 128/49
[2019-11-21] MEDS ORDERED: LASIX20 MG PO (17:25)
[2019-11-21] MEDS ORDERED: ZESTORETIC 20-1 EACH PO (17:26)
[2019-11-21 18:08] LABS: ALBUMIN 3.3 gm/dl (3.1-4.5); CREATININE 2.73 mg/dL (0.55-1.02); POTASSIUM 4.4 mmol/L (3.5-5.1); TOTAL PROTEIN 7.2 gm/dL (6.4-8.2)
[2019-11-21 18:09] LABS: TROPONIN I 0.024 ng/ml (<0.045)
[2019-11-21 18:15] LABS: BASO # 0.1 10*3/uL (0.0-0.1); BASO % 1.2 % (0.0-1.0); EOS # 0.2 10*3/uL (0.0-0.4); EOS % 3.5 % (1.0-4.0); HEMATOCRIT 30.8 % (37.0-47.0); LYMPH % 14.9 % (27.0-41.0); MEAN CELL VOLUME 86.5 fl (81.0-99.0); MEAN CORPUSCULAR HGB 32.3 pg (27.0-31.0); MEAN PLATELET VOLUME 10.5 fl (9.6-12.3); MONO # 0.8 10*3/uL (0.1-1.0); NEUT # 4.7 10*3/uL (2.3-7.9); NEUT % 68.3 % (47.0-73.0); PLATELET COUNT AUTOMATED 169 10*3/uL (130-400); RED BLOOD COUNT 3.56 10*6/uL (4.10-5.10); RED CELL DISTRI WIDTH 13.1 % (0-14.5); WHITE BLOOD COUNT 6.9 10*3/uL (4.8-10.8)
[2019-11-21 18:17] LABS: BACTERIA 2+; BILIRUBIN NEGATIVE (NEGATIVE); BLOOD TRACE-LYSED (NEGATIVE); CLARITY SL CLOUDY (CLEAR); COLOR YELLOW (YELLOW); EPITHELIAL CELLS TNTC; GLUCOSE NEGATIVE (NEGATIVE); KETONE NEGATIVE (NEGATIVE); LEUKO ESTERASE NEGATIVE (NEGATIVE); NITRITE NEGATIVE (NEGATIVE); SPECIFIC GRAVITY 1.025 (1.005-1.030); UROBILINOGEN 0.2 E.U./dl (0.2-1.0)
[2019-11-21 18:18] LABS: MEAN CORPUSCULAR HGB CONC 37.3 g/dl (33.0-37.0)
[2019-11-21 18:40] VITALS: BP 151/48
[2019-11-21 19:39] VITALS: BP 124/44
[2019-11-21 20:04] VITALS: BP 167/55
[2019-11-21] MEDS ORDERED: CEPHULAC10 GM/151 PO (20:52)
[2019-11-21] MEDS ORDERED: LANTUS SOL100 UNIT/1 SQ (20:53)
[2019-11-22] VITALS: BP 148/52
[2019-11-22 06:06] LABS: CREATININE 2.04 mg/dL (0.55-1.02); POTASSIUM 3.9 mmol/L (3.5-5.1)
[2019-11-22 08:00] VITALS: BP 140/50
[2019-11-22 12:00] VITALS: BP 134/54
[2019-11-22 16:00] VITALS: BP 141/50
[2019-11-22 20:00] VITALS: BP 146/57
[2019-11-23 06:00] LABS: BASO # 0.1 10*3/uL (0.0-0.1); EOS # 0.3 10*3/uL (0.0-0.4); EOS % 5.5 % (1.0-4.0); HEMATOCRIT 26.3 % (37.0-47.0); LYMPH # 1.2 10*3/uL (1.3-4.4); LYMPH % 20.1 % (27.0-41.0); MEAN CELL VOLUME 87.1 fl (81.0-99.0); MEAN CORPUSCULAR HGB 31.8 pg (27.0-31.0); MEAN CORPUSCULAR HGB CONC 36.5 g/dl (33.0-37.0); MEAN PLATELET VOLUME 9.6 fl (9.6-12.3); MONO # 0.8 10*3/uL (0.1-1.0); MONO % 12.2 % (3.0-9.0); NEUT # 3.7 10*3/uL (2.3-7.9); NEUT % 60.9 % (47.0-73.0); PLATELET COUNT AUTOMATED 129 10*3/uL (130-400); RED BLOOD COUNT 3.02 10*6/uL (4.10-5.10); RED CELL DISTRI WIDTH 13.1 % (0-14.5); WHITE BLOOD COUNT 6.1 10*3/uL (4.8-10.8)
[2019-11-23 06:12] LABS: CREATININE 1.82 mg/dL (0.55-1.02); POTASSIUM 3.4 mmol/L (3.5-5.1)
[2019-11-23 08:00] VITALS: BP 106/50
[2019-11-23 12:00] VITALS: BP 132/49
[2019-11-23 16:00] VITALS: BP 132/44
[2019-11-23 20:00] VITALS: BP 124/79
[2019-11-24] VITALS: BP 109/36; BP 110/52
[2019-11-24 07:02] LABS: CREATININE 1.65 mg/dL (0.55-1.02)
[2019-11-24 08:00] VITALS: BP 130/45
[2019-11-24 12:00] VITALS: BP 130/43
[2019-11-24 16:00] VITALS: BP 138/48
[2019-11-24 20:00] VITALS: BP 142/54
[2019-11-25] VITALS (7 sets, daily range): BP systolic 125–142; BP diastolic 32–55
[2019-11-25 06:13] LABS: CREATININE 1.45 mg/dL (0.55-1.02); POTASSIUM 3.9 mmol/L (3.5-5.1)
[2019-11-26] VITALS: BP 128/50
[2019-11-26 06:06] LABS: BASO # 0.1 10*3/uL (0.0-0.1); BASO % 1.1 % (0.0-1.0); EOS # 0.4 10*3/uL (0.0-0.4); EOS % 7.6 % (1.0-4.0); HEMATOCRIT 24.2 % (37.0-47.0); LYMPH # 1.3 10*3/uL (1.3-4.4); LYMPH % 22.6 % (27.0-41.0); MEAN CELL VOLUME 89.3 fl (81.0-99.0); MEAN CORPUSCULAR HGB 31.7 pg (27.0-31.0); MEAN CORPUSCULAR HGB CONC 35.5 g/dl (33.0-37.0); MEAN PLATELET VOLUME 10.2 fl (9.6-12.3); MONO # 0.7 10*3/uL (0.1-1.0); MONO % 12.3 % (3.0-9.0); NEUT # 3.2 10*3/uL (2.3-7.9); NEUT % 55.9 % (47.0-73.0); PLATELET COUNT AUTOMATED 99 10*3/uL (130-400); RED BLOOD COUNT 2.71 10*6/uL (4.10-5.10); RED CELL DISTRI WIDTH 13.2 % (0-14.5); WHITE BLOOD COUNT 5.7 10*3/uL (4.8-10.8)
[2019-11-26 06:21] LABS: CREATININE 1.41 mg/dL (0.55-1.02); POTASSIUM 3.9 mmol/L (3.5-5.1)
[2019-11-26] MEDS ORDERED: LACTULOSE20 GM/30 M PO (07:40)
== END 2019-11-26 09:40 | disposition home or self-care (01) | DRG 441 ==
LOC: ED 16:51 → EDHOLD 18:53 → 5E 18:53
PROVIDERS: Emergency Medicine; Internal Medicine; ADMIT Internal Medicine
DX: K72.00 Acute and subacute hepatic failure without coma (principal); N17.0 Acute kidney failure with tubular necrosis; R18.8 Other ascites; N18.4 Chronic kidney disease, stage 4 (severe); K74.60 Unspecified cirrhosis of liver; I12.9 Hypertensive chronic kidney disease with stage 1 through stage 4 chronic kidney disease, or unspecified chronic kidney disease; E11.65 Type 2 diabetes mellitus with hyperglycemia; E11.22 Type 2 diabetes mellitus with diabetic chronic kidney disease; E87.6 Hypokalemia; T50.2X5A Adverse effect of carbonic-anhydrase inhibitors, benzothiadiazides and other diuretics, initial encounter; Y92.238 Other place in hospital as the place of occurrence of the external cause; K59.09 Other constipation; R62.7 Adult failure to thrive; K72.10 Chronic hepatic failure without coma; Z98.49 Cataract extraction status, unspecified eye; Z83.3 Family history of diabetes mellitus; Z82.49 Family history of ischemic heart disease and other diseases of the circulatory system; Z68.32 Body mass index [BMI] 32.0-32.9, adult

== ENCOUNTER → 2020-03-11 | Outpatient (CLI) | payer OTHER ==
[~2020-03-11] MED LIST changes: +LANTUS SOL100 UNIT/1 SQ
[2020-03-11 11:41] LABS: ALBUMIN 3.2 gm/dl (3.1-4.5); CREATININE 2.44 mg/dL (0.55-1.02); POTASSIUM 5.2 mmol/L (3.5-5.1)
[2020-03-11 11:48] LABS: FREE T4 1.09 ng/dl (0.76-1.46); THYROID STIM HORMONE (HS) 1.66 uIU/ml (0.358-4.75)
[2020-03-11 12:01] LABS: BASO # 0.1 10*3/uL (0.0-0.1); BASO % 1.3 % (0.0-1.0); EOS # 0.5 10*3/uL (0.0-0.4); EOS % 6.3 % (1.0-4.0); HEMATOCRIT 33.3 % (37.0-47.0); LYMPH # 1.7 10*3/uL (1.3-4.4); LYMPH % 22.9 % (27.0-41.0); MEAN CELL VOLUME 84.3 fl (81.0-99.0); MEAN CORPUSCULAR HGB 29.9 pg (27.0-31.0); MEAN CORPUSCULAR HGB CONC 35.4 g/dl (33.0-37.0); MEAN PLATELET VOLUME 10.6 fl (9.6-12.3); MONO # 0.9 10*3/uL (0.1-1.0); MONO % 12.8 % (3.0-9.0); NEUT # 4.1 10*3/uL (2.3-7.9); NEUT % 56.4 % (47.0-73.0); PLATELET COUNT AUTOMATED 172 10*3/uL (130-400); RED BLOOD COUNT 3.95 10*6/uL (4.10-5.10); RED CELL DISTRI WIDTH 12.8 % (0-14.5); WHITE BLOOD COUNT 7.2 10*3/uL (4.8-10.8)
[2020-03-11 12:04] LABS: VITAMIN D, 25-HYDROXY 27.6 ng/mL (30-100)
== END | disposition home or self-care (01) ==
LOC: LAB 10:43
PROVIDERS: ATTEND Internal Medicine
DX: Z00.00 Encounter for general adult medical examination without abnormal findings (principal); I10 Essential (primary) hypertension; E11.9 Type 2 diabetes mellitus without complications; E55.9 Vitamin D deficiency, unspecified; E78.2 Mixed hyperlipidemia

== ENCOUNTER 2020-05-16 07:57 | Inpatient (IN) | payer OTHER ==
[~2020-05-16] VITALS: Ht 162.6 cm; Wt 90.3 kg
[~2020-05-16 07:57] MED LIST changes: +CEFUROXIME AXE500 MG PO
[2020-05-16 08:16] VITALS: BP 121/41
[2020-05-16 08:20] LABS: BASO % 0.8 % (0.0-1.0); EOS # 0.2 10*3/uL (0.0-0.4); EOS % 4.3 % (1.0-4.0); HEMATOCRIT 29.5 % (37.0-47.0); LYMPH # 0.9 10*3/uL (1.3-4.4); LYMPH % 16.9 % (27.0-41.0); MEAN CELL VOLUME 88.6 fl (81.0-99.0); MEAN CORPUSCULAR HGB 29.7 pg (27.0-31.0); MEAN CORPUSCULAR HGB CONC 33.6 g/dl (33.0-37.0); MEAN PLATELET VOLUME 9.6 fl (9.6-12.3); MONO # 0.4 10*3/uL (0.1-1.0); MONO % 6.6 % (3.0-9.0); NEUT # 3.7 10*3/uL (2.3-7.9); NEUT % 70.5 % (47.0-73.0); PLATELET COUNT AUTOMATED 129 10*3/uL (130-400); RED BLOOD COUNT 3.33 10*6/uL (4.10-5.10); RED CELL DISTRI WIDTH 14.2 % (0-14.5); WHITE BLOOD COUNT 5.3 10*3/uL (4.8-10.8)
[2020-05-16 08:30] LABS: ACT PARTIAL THROMBO TIME 28.8 SECONDS (20.0-32.1); INTERNATIONAL NORM RATIO 1.2 (2.0-3.5)
[2020-05-16 08:34] LABS: ALBUMIN 2.9 gm/dl (3.1-4.5); CREATININE 1.93 mg/dL (0.55-1.02); POTASSIUM 3.8 mmol/L (3.5-5.1); TOTAL PROTEIN 6.6 gm/dL (6.4-8.2)
--- NOTE | 2020-05-16 15:48 | NUR ---
PATIENT PROVIDED A MEAL TRAY AT THIS TIME. CALL LIGHT IN REACH. PATIENT ASSISTED TO SET HER FOOD UP.
--- NOTE | 2020-05-17 01:01 | NUR ---
PT IS SLEEPING IN ROOM. NO SIGNS OF ACUTE DISTRESS AT THIS TIME.
[2020-05-17 01:22] VITALS: BP 139/50
--- NOTE | 2020-05-17 01:23 | NUR ---
PT UP TO BATHROOM WITHOUT DIFFICULTY. VITAL SIGNS ARE STABLE. SKIN IS PINK WARM AND DRY.
--- NOTE | 2020-05-17 07:56 | NUR ---
AT PT BEDSIDE FOR EVALUATION. PT DENIES ANY COMPLAINTS AT THIS TIME. WAITING FOR BREAKFAST TRAY. SIDE RAILS UP X2, BED IN LOWEST POSITION. CALL LIGHT WITHIN REACH, WILL CONTINUE TO MONITOR.
[2020-05-17 08:23] LABS: BASO # 0.1 10*3/uL (0.0-0.1); BASO % 0.8 % (0.0-1.0); EOS # 0.4 10*3/uL (0.0-0.4); EOS % 6.5 % (1.0-4.0); HEMATOCRIT 27.2 % (37.0-47.0); LYMPH # 1.6 10*3/uL (1.3-4.4); LYMPH % 23.9 % (27.0-41.0); MEAN CELL VOLUME 88.9 fl (81.0-99.0); MEAN CORPUSCULAR HGB 30.1 pg (27.0-31.0); MEAN CORPUSCULAR HGB CONC 33.8 g/dl (33.0-37.0); MONO # 0.8 10*3/uL (0.1-1.0); MONO % 11.7 % (3.0-9.0); NEUT # 3.7 10*3/uL (2.3-7.9); NEUT % 56.6 % (47.0-73.0); PLATELET COUNT AUTOMATED 140 10*3/uL (130-400); RED BLOOD COUNT 3.06 10*6/uL (4.10-5.10); RED CELL DISTRI WIDTH 14.1 % (0-14.5); WHITE BLOOD COUNT 6.6 10*3/uL (4.8-10.8)
[2020-05-17 08:39] LABS: ALBUMIN 2.6 gm/dl (3.1-4.5); CREATININE 1.64 mg/dL (0.55-1.02); POTASSIUM 4.1 mmol/L (3.5-5.1); TOTAL PROTEIN 5.9 gm/dL (6.4-8.2)
--- NOTE | 2020-05-17 09:51 | NUR ---
TOOK MEDICATIONS WITHOUT DIFFICULTY, DENIES ANY COMPLAINTS. WILL CONTINUE TO MONITOR.
[2020-05-17 12:17] VITALS: BP 150/53
--- NOTE | 2020-05-17 12:18 | NUR ---
THE PATIENT WAS SWITCHED FROM AN ER TO AN INPATIENT BED.
--- NOTE | 2020-05-17 13:07 | NUR ---
THE PATIENT IS LYING IN HER BED RESTING WITH HER EYES CLOSED. RESP ARE EASY AND NON-LABORED. CALL LIGHT IS WITHIN REACH
--- NOTE | 2020-05-17 15:47 | NUR ---
ORDERED PT DINNER TRAY. PT DENIES ANY COMPLAINTS. SITTING UP IN BED.
--- NOTE | 2020-05-17 18:01 | NUR ---
THE PATIENT RECIEVED HER DINNER TRAY
--- NOTE | 2020-05-18 03:49 | NUR ---
PT RESTING ON COT AT THIS TIME. DENIES ALL NEEDS AT THIS TIME. CALL LIGHT WITH IN REACH. WILL CONTINUE TO MONITOR.
[2020-05-18 05:49] LABS: ALBUMIN 2.8 gm/dl (3.1-4.5); CREATININE 1.93 mg/dL (0.55-1.02); POTASSIUM 4.1 mmol/L (3.5-5.1); TOTAL PROTEIN 6.2 gm/dL (6.4-8.2)
--- NOTE | 2020-05-18 05:49 | NUR ---
NURSE CARPET INSTALLER NOTIFIED ABOUT MEDICATION AT THIS TIME. STATES SHE WILL BRING IT OVER WHEN SHE CAN.
[2020-05-18 06:03] LABS: BASO # 0.1 10*3/uL (0.0-0.1); BASO % 0.8 % (0.0-1.0); EOS # 0.4 10*3/uL (0.0-0.4); EOS % 4.7 % (1.0-4.0); HEMATOCRIT 29.7 % (37.0-47.0); LYMPH # 1.4 10*3/uL (1.3-4.4); LYMPH % 15.5 % (27.0-41.0); MEAN CELL VOLUME 87.9 fl (81.0-99.0); MEAN CORPUSCULAR HGB 29.6 pg (27.0-31.0); MEAN CORPUSCULAR HGB CONC 33.7 g/dl (33.0-37.0); MEAN PLATELET VOLUME 10.5 fl (9.6-12.3); MONO # 1.2 10*3/uL (0.1-1.0); NEUT % 65.6 % (47.0-73.0); PLATELET COUNT AUTOMATED 165 10*3/uL (130-400); RED BLOOD COUNT 3.38 10*6/uL (4.10-5.10); RED CELL DISTRI WIDTH 13.6 % (0-14.5); WHITE BLOOD COUNT 9.1 10*3/uL (4.8-10.8)
--- NOTE | 2020-05-18 07:14 | NUR ---
REPORT RECIEVED FROM VERONICA BAEZ
--- NOTE | 2020-05-18 07:53 | NUR ---
PT IN BED WITH NO REQUESTS NO SIGN OF DISTRESS BED RAILS UP X 2 CALL LIGHT IN REACH
--- NOTE | 2020-05-18 09:57 | NUR ---
PT WALKED DOWN [place] AND BACK UNDER OWN POWER PT ASKED IF SHE THOUGHT SHE WAS READY TO GO HOME AND PT REPLIED IN THE AFFIRMATIVE
--- NOTE | 2020-05-18 11:39 | NUR ---
Faxed home health referral to [facility] along with face to face and clinical
== END 2020-05-18 12:09 | disposition home or self-care (01) | DRG 638 ==
LOC: ED 07:57 → EDHOLD 09:20 → 5E 05-18 12:03 → EDHOLD 05-18 12:03
PROVIDERS: Emergency Medicine; ADMIT Internal Medicine; ATTEND Internal Medicine
DX: E11.649 Type 2 diabetes mellitus with hypoglycemia without coma (principal); E87.1 Hypo-osmolality and hyponatremia; E44.0 Moderate protein-calorie malnutrition; K72.90 Hepatic failure, unspecified without coma; E86.0 Dehydration; N18.32 Chronic kidney disease, stage 3b; E11.22 Type 2 diabetes mellitus with diabetic chronic kidney disease; K75.81 Nonalcoholic steatohepatitis (NASH); I12.9 Hypertensive chronic kidney disease with stage 1 through stage 4 chronic kidney disease, or unspecified chronic kidney disease; E87.8 Other disorders of electrolyte and fluid balance, not elsewhere classified; Z83.3 Family history of diabetes mellitus; Z82.49 Family history of ischemic heart disease and other diseases of the circulatory system; Z98.49 Cataract extraction status, unspecified eye; Z79.899 Other long term (current) drug therapy

== ENCOUNTER 2020-07-12 14:32 | Emergency (ER) | payer OTHER ==
[~2020-07-12] VITALS: Wt 77.1 kg
[2020-07-12] MEDS ORDERED: VOLTAREN100 GM T (18:38)
[2020-07-12] MEDS ORDERED: CYCLOBENZAPRINE5 M3 PO (18:38)
[2020-07-12] MEDS ORDERED: TYLENOL325 M1 PO (18:38)
== END 2020-07-12 18:40 | disposition home or self-care (01) ==
LOC: ED 14:32
DX: M54.5 Low back pain (principal); E11.22 Type 2 diabetes mellitus with diabetic chronic kidney disease; N18.30 Chronic kidney disease, stage 3 unspecified; Z79.899 Other long term (current) drug therapy; Z79.4 Long term (current) use of insulin

== ENCOUNTER 2020-09-18 18:58 | Inpatient (IN) | payer OTHER ==
[~2020-09-18] VITALS: Ht 162.5 cm; Wt 78.5 kg
[~2020-09-18 18:58] MED LIST changes: +CYCLOBENZAPRINE5 M3 PO; +TYLENOL325 M1 PO; +VOLTAREN100 GM T
[2020-09-18 19:04] VITALS: BP 110/45
[2020-09-18 19:56] LABS: BASO # 0.1 10*3/uL (0.0-0.1); EOS # 0.3 10*3/uL (0.0-0.4); EOS % 4.6 % (1.0-4.0); HEMATOCRIT 29.4 % (37.0-47.0); LYMPH % 13.2 % (27.0-41.0); MEAN CELL VOLUME 84.7 fl (81.0-99.0); MEAN CORPUSCULAR HGB 30.5 pg (27.0-31.0); MEAN CORPUSCULAR HGB CONC 36.1 g/dl (33.0-37.0); MONO # 0.6 10*3/uL (0.1-1.0); MONO % 8.6 % (3.0-9.0); NEUT # 5.2 10*3/uL (2.3-7.9); NEUT % 72.3 % (47.0-73.0); PLATELET COUNT AUTOMATED 171 10*3/uL (130-400); RED BLOOD COUNT 3.47 10*6/uL (4.10-5.10); RED CELL DISTRI WIDTH 12.7 % (0-14.5); WHITE BLOOD COUNT 7.2 10*3/uL (4.8-10.8)
[2020-09-18 20:12] LABS: ALBUMIN 2.7 gm/dl (3.1-4.5); CREATININE 2.39 mg/dL (0.55-1.02); POTASSIUM 4.5 mmol/L (3.5-5.1); TOTAL PROTEIN 6.5 gm/dL (6.4-8.2)
[2020-09-18 21:18] VITALS: BP 126/50
[2020-09-18 21:27] LABS: BILIRUBIN Negative (Negative); BLOOD 1+ (Negative); CLARITY Turbid (Clear); COLOR Yellow (Yellow); GLUCOSE 3+ (Negative); KETONE Trace (Negative); LEUKO ESTERASE 2+ (Negative); NITRITE Negative (Negative)
[2020-09-18 21:38] LABS: BACTERIA 4+; RBC 16-20 rbc/hpf (0-2); WBC TNTC wbc/hpf (0-5)
[2020-09-18 23:59] VITALS: BP 125/57
[2020-09-19 00:15] VITALS: BP 138/58
[2020-09-19 06:15] LABS: BASO # 0.1 10*3/uL (0.0-0.1); BASO % 0.9 % (0.0-1.0); EOS # 0.3 10*3/uL (0.0-0.4); EOS % 3.1 % (1.0-4.0); HEMATOCRIT 29.6 % (37.0-47.0); LYMPH % 12.2 % (27.0-41.0); MEAN CELL VOLUME 85.8 fl (81.0-99.0); MEAN CORPUSCULAR HGB 30.4 pg (27.0-31.0); MEAN CORPUSCULAR HGB CONC 35.5 g/dl (33.0-37.0); MEAN PLATELET VOLUME 10.2 fl (9.6-12.3); MONO # 0.8 10*3/uL (0.1-1.0); MONO % 9.6 % (3.0-9.0); PLATELET COUNT AUTOMATED 165 10*3/uL (130-400); RED BLOOD COUNT 3.45 10*6/uL (4.10-5.10); RED CELL DISTRI WIDTH 12.9 % (0-14.5); WHITE BLOOD COUNT 8.1 10*3/uL (4.8-10.8)
[2020-09-19 06:35] LABS: CREATININE 2.34 mg/dL (0.55-1.02); POTASSIUM 3.8 mmol/L (3.5-5.1)
[2020-09-19 08:00] VITALS: BP 147/50
[2020-09-19 12:00] VITALS: BP 130/51
[2020-09-19 16:00] VITALS: BP 135/55
[2020-09-20 00:07] VITALS: BP 144/50
[2020-09-20 05:54] LABS: CREATININE 2.29 mg/dL (0.55-1.02); POTASSIUM 3.9 mmol/L (3.5-5.1)
[2020-09-20 06:16] LABS: BASO # 0.1 10*3/uL (0.0-0.1); BASO % 1.2 % (0.0-1.0); EOS # 0.5 10*3/uL (0.0-0.4); HEMATOCRIT 29.3 % (37.0-47.0); LYMPH # 1.6 10*3/uL (1.3-4.4); LYMPH % 21.3 % (27.0-41.0); MEAN CELL VOLUME 86.9 fl (81.0-99.0); MEAN CORPUSCULAR HGB 30.3 pg (27.0-31.0); MEAN CORPUSCULAR HGB CONC 34.8 g/dl (33.0-37.0); MEAN PLATELET VOLUME 10.5 fl (9.6-12.3); MONO # 1.1 10*3/uL (0.1-1.0); MONO % 14.9 % (3.0-9.0); NEUT # 4.3 10*3/uL (2.3-7.9); NEUT % 56.2 % (47.0-73.0); PLATELET COUNT AUTOMATED 171 10*3/uL (130-400); RED BLOOD COUNT 3.37 10*6/uL (4.10-5.10); RED CELL DISTRI WIDTH 13.2 % (0-14.5); WHITE BLOOD COUNT 7.6 10*3/uL (4.8-10.8)
[2020-09-20] MEDS ORDERED: PROTONIX40 M1 IV ×2 (06:47)
[2020-09-20] MEDS ORDERED: PROTONIX40 MG PO (06:54)
[2020-09-20 08:00] VITALS: BP 115/45
== END 2020-09-20 09:50 | disposition home or self-care (01) | DRG 392 ==
LOC: ED 18:58 → EDHOLD 22:34 → 4E 22:34
PROVIDERS: Emergency Medicine; ADMIT Internal Medicine; ATTEND Internal Medicine
DX: K29.00 Acute gastritis without bleeding (principal); N18.4 Chronic kidney disease, stage 4 (severe); I13.0 Hypertensive heart and chronic kidney disease with heart failure and stage 1 through stage 4 chronic kidney disease, or unspecified chronic kidney disease; E87.2 Acidosis; E44.1 Mild protein-calorie malnutrition; R62.7 Adult failure to thrive; E11.22 Type 2 diabetes mellitus with diabetic chronic kidney disease; K72.90 Hepatic failure, unspecified without coma; K75.81 Nonalcoholic steatohepatitis (NASH); E86.0 Dehydration; I95.1 Orthostatic hypotension; K74.60 Unspecified cirrhosis of liver; I50.9 Heart failure, unspecified; Z87.440 Personal history of urinary (tract) infections; Z98.51 Tubal ligation status; Z98.49 Cataract extraction status, unspecified eye; Z68.29 Body mass index [BMI] 29.0-29.9, adult; Z82.49 Family history of ischemic heart disease and other diseases of the circulatory system; Z83.3 Family history of diabetes mellitus

== ENCOUNTER 2020-10-01 05:13 | Inpatient (IN) | payer OTHER ==
[~2020-10-01] VITALS: Ht 167.6 cm; Wt 89.5 kg
[~2020-10-01 05:13] MED LIST changes: +PROTONIX40 M1 IV
[2020-10-01 05:25] VITALS: BP 153/55
[2020-10-01 05:54] LABS: BILIRUBIN Negative (Negative); BLOOD 1+ (Negative); CLARITY Clear (Clear); COLOR Yellow (Yellow); GLUCOSE 3+ (Negative); KETONE Negative (Negative); LEUKO ESTERASE Negative (Negative); NITRITE Negative (Negative); PH 6.5 (4.5-8.0); UROBILINOGEN 0.2 E.U./dl (0.0-1.0)
[2020-10-01 06:07] LABS: WBC 0-2 wbc/hpf (0-5)
[2020-10-01 06:13] LABS: BASO # 0.1 10*3/uL (0.0-0.1); BASO % 1.3 % (0.0-1.0); EOS # 0.3 10*3/uL (0.0-0.4); EOS % 5.9 % (1.0-4.0); HEMATOCRIT 27.6 % (37.0-47.0); LYMPH % 18.2 % (27.0-41.0); MEAN CELL VOLUME 87.6 fl (81.0-99.0); MEAN CORPUSCULAR HGB 30.2 pg (27.0-31.0); MEAN CORPUSCULAR HGB CONC 34.4 g/dl (33.0-37.0); MEAN PLATELET VOLUME 9.9 fl (9.6-12.3); MONO # 0.6 10*3/uL (0.1-1.0); MONO % 11.9 % (3.0-9.0); NEUT # 3.3 10*3/uL (2.3-7.9); NEUT % 62.3 % (47.0-73.0); PLATELET COUNT AUTOMATED 123 10*3/uL (130-400); RED BLOOD COUNT 3.15 10*6/uL (4.10-5.10); RED CELL DISTRI WIDTH 12.7 % (0-14.5); WHITE BLOOD COUNT 5.3 10*3/uL (4.8-10.8)
[2020-10-01 06:25] LABS: ALBUMIN 2.6 gm/dl (3.1-4.5); CREATININE 1.9 mg/dL (0.55-1.02); POTASSIUM 4.4 mmol/L (3.5-5.1)
[2020-10-01 07:05] VITALS: BP 141/59
[2020-10-01 11:11] VITALS: BP 130/56
[2020-10-01 16:00] VITALS: BP 153/58
[2020-10-01 20:00] VITALS: BP 137/64
[2020-10-02] VITALS: BP 137/50
[2020-10-02 06:37] LABS: BASO # 0.1 10*3/uL (0.0-0.1); BASO % 1.3 % (0.0-1.0); EOS # 0.3 10*3/uL (0.0-0.4); EOS % 4.7 % (1.0-4.0); HEMATOCRIT 28.6 % (37.0-47.0); LYMPH # 1.7 10*3/uL (1.3-4.4); LYMPH % 24.6 % (27.0-41.0); MEAN CELL VOLUME 87.7 fl (81.0-99.0); MEAN CORPUSCULAR HGB 30.1 pg (27.0-31.0); MEAN CORPUSCULAR HGB CONC 34.3 g/dl (33.0-37.0); MEAN PLATELET VOLUME 9.8 fl (9.6-12.3); MONO # 0.9 10*3/uL (0.1-1.0); MONO % 13.2 % (3.0-9.0); NEUT # 3.8 10*3/uL (2.3-7.9); NEUT % 55.9 % (47.0-73.0); PLATELET COUNT AUTOMATED 145 10*3/uL (130-400); RED BLOOD COUNT 3.26 10*6/uL (4.10-5.10); RED CELL DISTRI WIDTH 12.5 % (0-14.5); WHITE BLOOD COUNT 6.7 10*3/uL (4.8-10.8)
[2020-10-02 06:43] LABS: CREATININE 1.83 mg/dL (0.55-1.02); POTASSIUM 3.9 mmol/L (3.5-5.1)
[2020-10-02 07:56] VITALS: BP 140/64
[2020-10-02 16:00] VITALS: BP 132/52
[2020-10-03] VITALS: BP 155/55
[2020-10-03 06:44] LABS: CREATININE 2.03 mg/dL (0.55-1.02); POTASSIUM 3.9 mmol/L (3.5-5.1)
[2020-10-03 08:00] VITALS: BP 157/55
[2020-10-03 16:00] VITALS: BP 150/59
[2020-10-03 20:00] VITALS: BP 148/52
[2020-10-04] VITALS: BP 149/55
[2020-10-04 06:19] LABS: CREATININE 2.09 mg/dL (0.55-1.02); POTASSIUM 4.4 mmol/L (3.5-5.1)
[2020-10-04 08:00] VITALS: BP 150/52
[2020-10-04 16:00] VITALS: BP 132/59
[2020-10-04] MEDS ORDERED: XIFAXAN550 MG PO (23:27)
[2020-10-05] VITALS: BP 148/57
[2020-10-05 06:29] LABS: BASO # 0.1 10*3/uL (0.0-0.1); EOS # 0.6 10*3/uL (0.0-0.4); EOS % 7.1 % (1.0-4.0); HEMATOCRIT 27.1 % (37.0-47.0); LYMPH # 1.7 10*3/uL (1.3-4.4); LYMPH % 21.6 % (27.0-41.0); MEAN CELL VOLUME 85.8 fl (81.0-99.0); MEAN CORPUSCULAR HGB 30.4 pg (27.0-31.0); MEAN CORPUSCULAR HGB CONC 35.4 g/dl (33.0-37.0); MEAN PLATELET VOLUME 10.1 fl (9.6-12.3); NEUT # 4.4 10*3/uL (2.3-7.9); NEUT % 56.9 % (47.0-73.0); PLATELET COUNT AUTOMATED 144 10*3/uL (130-400); RED BLOOD COUNT 3.16 10*6/uL (4.10-5.10); RED CELL DISTRI WIDTH 12.4 % (0-14.5); WHITE BLOOD COUNT 7.8 10*3/uL (4.8-10.8)
[2020-10-05 06:38] LABS: CREATININE 2.21 mg/dL (0.55-1.02); POTASSIUM 3.9 mmol/L (3.5-5.1)
[2020-10-05 08:00] VITALS: BP 149/57
== END 2020-10-05 11:37 | DRG 441 ==
LOC: ED 05:13 → 5E 09:52 → EDHOLD 09:52 → 5E 11:10
PROVIDERS: Internal Medicine; ADMIT Internal Medicine; ATTEND Internal Medicine
DX: K72.90 Hepatic failure, unspecified without coma (principal); G93.41 Metabolic encephalopathy; R18.8 Other ascites; E44.0 Moderate protein-calorie malnutrition; N18.4 Chronic kidney disease, stage 4 (severe); R62.7 Adult failure to thrive; Z68.29 Body mass index [BMI] 29.0-29.9, adult; K74.60 Unspecified cirrhosis of liver; Z20.822 Contact with and (suspected) exposure to COVID-19; I12.9 Hypertensive chronic kidney disease with stage 1 through stage 4 chronic kidney disease, or unspecified chronic kidney disease; E11.22 Type 2 diabetes mellitus with diabetic chronic kidney disease; E66.9 Obesity, unspecified; K75.81 Nonalcoholic steatohepatitis (NASH); K21.00 Gastro-esophageal reflux disease with esophagitis, without bleeding

== ENCOUNTER 2020-11-02 14:10 | Inpatient (IN) | payer OTHER ==
[~2020-11-02] VITALS: Ht 167.6 cm; Wt 84.2 kg
[~2020-11-02 14:10] MED LIST changes: +XIFAXAN550 MG PO
[2020-11-02 14:16] VITALS: BP 146/45
[2020-11-02 15:23] LABS: BASO # 0.1 10*3/uL (0.0-0.1); BASO % 0.9 % (0.0-1.0); EOS # 0.3 10*3/uL (0.0-0.4); EOS % 4.7 % (1.0-4.0); HEMATOCRIT 26.7 % (37.0-47.0); LYMPH # 0.7 10*3/uL (1.3-4.4); LYMPH % 11.3 % (27.0-41.0); MEAN CELL VOLUME 88.7 fl (81.0-99.0); MEAN CORPUSCULAR HGB 30.2 pg (27.0-31.0); MEAN CORPUSCULAR HGB CONC 34.1 g/dl (33.0-37.0); MEAN PLATELET VOLUME 9.8 fl (9.6-12.3); MONO # 0.7 10*3/uL (0.1-1.0); MONO % 11.3 % (3.0-9.0); NEUT # 4.7 10*3/uL (2.3-7.9); NEUT % 71.3 % (47.0-73.0); PLATELET COUNT AUTOMATED 181 10*3/uL (130-400); RED BLOOD COUNT 3.01 10*6/uL (4.10-5.10); RED CELL DISTRI WIDTH 13.6 % (0-14.5); WHITE BLOOD COUNT 6.6 10*3/uL (4.8-10.8)
[2020-11-02 15:43] LABS: ALBUMIN 2.6 gm/dl (3.1-4.5); ALKALINE PHOSPHATASE 154 U/L (45-117); BUN 36 mg/dl (7-24); CHLORIDE 115 mmol/L (98-107); CREATININE 2.31 mg/dL (0.55-1.02); LIPASE 169 U/L (73-393); POTASSIUM 3.6 mmol/L (3.5-5.1); SGOT/AST 33 IU/L (3-35); SGPT/ALT 27 U/L (12-78); SODIUM 145 mmol/L (136-145); TOTAL PROTEIN 6.5 gm/dL (6.4-8.2); TROPONIN I 0.042 ng/ml (<0.045)
[2020-11-02 15:46] LABS: ACT PARTIAL THROMBO TIME 27.9 SECONDS (20.0-32.1); INTERNATIONAL NORM RATIO 1.2 (2.0-3.5)
[2020-11-02 15:55] LABS: ACETAMINOPHEN (TYLENOL) < 5.0 ug/ml (10-30); ETHYL ALCOHOL < 3.0 mg/dl (<3)
[2020-11-02 16:38] LABS: BILIRUBIN Negative (Negative); BLOOD Trace-Lysed (Negative); CLARITY Clear (Clear); COLOR Yellow (Yellow); GLUCOSE Negative (Negative); KETONE Negative (Negative); LEUKO ESTERASE Trace (Negative); NITRITE Negative (Negative); UROBILINOGEN 0.2 E.U./dl (0.0-1.0)
[2020-11-02 16:48] LABS: BACTERIA 4+; URINE AMPHETAMINES < 1000 (1000ng/ml); URINE BARBITURATES < 200 (200ng/ml); URINE BENZODIAZEPINES < 200 (200ng/ml); URINE CANNABINOIDS (THC) < 50 (50ng/ml); URINE COCAINE < 300 (300ng/ml); URINE METHADONE < 300 (300ng/ml); URINE OPIATES < 300 (300ng/ml); WBC 31-40 wbc/hpf (0-5)
[2020-11-02 16:49] LABS: URINE PHENCYCLIDINE < 25 (25ng/ml)
[2020-11-02 21:01] VITALS: BP 147/57
[2020-11-02 23:44] VITALS: BP 132/45
[2020-11-03 04:17] VITALS: BP 134/48
[2020-11-03 04:31] LABS: BASO # 0.1 10*3/uL (0.0-0.1); BASO % 1.3 % (0.0-1.0); EOS # 0.4 10*3/uL (0.0-0.4); EOS % 5.2 % (1.0-4.0); HEMATOCRIT 29.5 % (37.0-47.0); LYMPH # 1.3 10*3/uL (1.3-4.4); LYMPH % 17.7 % (27.0-41.0); MEAN CELL VOLUME 89.4 fl (81.0-99.0); MEAN CORPUSCULAR HGB 30.3 pg (27.0-31.0); MEAN CORPUSCULAR HGB CONC 33.9 g/dl (33.0-37.0); MEAN PLATELET VOLUME 9.7 fl (9.6-12.3); MONO # 0.9 10*3/uL (0.1-1.0); MONO % 12.5 % (3.0-9.0); NEUT # 4.8 10*3/uL (2.3-7.9); PLATELET COUNT AUTOMATED 188 10*3/uL (130-400); RED CELL DISTRI WIDTH 13.9 % (0-14.5); WHITE BLOOD COUNT 7.5 10*3/uL (4.8-10.8)
[2020-11-03 05:00] LABS: CREATININE 2.17 mg/dL (0.55-1.02); POTASSIUM 3.5 mmol/L (3.5-5.1)
[2020-11-03 07:43] VITALS: BP 143/45
[2020-11-03 08:00] VITALS: BP 138/43
[2020-11-03] MEDS ORDERED: XIFAXAN550 MG PO (08:17)
[2020-11-03] MEDS ORDERED: HUMALOG100 UNIT/1 SC (08:22)
[2020-11-03 12:00] VITALS: BP 142/57
[2020-11-03 16:00] VITALS: BP 134/49
[2020-11-03 20:00] VITALS: BP 137/51
[2020-11-04] VITALS: BP 142/58
[2020-11-04 06:18] LABS: BASO # 0.1 10*3/uL (0.0-0.1); BASO % 1.1 % (0.0-1.0); EOS # 0.7 10*3/uL (0.0-0.4); EOS % 7.3 % (1.0-4.0); HEMATOCRIT 26.2 % (37.0-47.0); LYMPH # 2.7 10*3/uL (1.3-4.4); LYMPH % 28.6 % (27.0-41.0); MEAN CELL VOLUME 88.5 fl (81.0-99.0); MEAN CORPUSCULAR HGB 30.1 pg (27.0-31.0); MEAN PLATELET VOLUME 10.1 fl (9.6-12.3); MONO # 1.3 10*3/uL (0.1-1.0); NEUT # 4.7 10*3/uL (2.3-7.9); NEUT % 48.7 % (47.0-73.0); PLATELET COUNT AUTOMATED 196 10*3/uL (130-400); RED BLOOD COUNT 2.96 10*6/uL (4.10-5.10); RED CELL DISTRI WIDTH 13.5 % (0-14.5); WHITE BLOOD COUNT 9.6 10*3/uL (4.8-10.8)
[2020-11-04 06:27] LABS: POTASSIUM 3.2 mmol/L (3.5-5.1)
[2020-11-04 06:33] LABS: CREATININE 1.95 mg/dL (0.55-1.02)
[2020-11-04 08:00] VITALS: BP 140/60
[2020-11-04 12:00] VITALS: BP 151/54
[2020-11-04 16:00] VITALS: BP 139/50
[2020-11-04 20:00] VITALS: BP 135/50
[2020-11-05] VITALS: BP 138/50
[2020-11-05 04:33] LABS: CREATININE 1.94 mg/dL (0.55-1.02); POTASSIUM 4.1 mmol/L (3.5-5.1)
[2020-11-05 05:53] LABS: BASO # 0.1 10*3/uL (0.0-0.1); BASO % 0.8 % (0.0-1.0); EOS # 0.4 10*3/uL (0.0-0.4); EOS % 7.2 % (1.0-4.0); HEMATOCRIT 24.1 % (37.0-47.0); LYMPH # 1.4 10*3/uL (1.3-4.4); MEAN CELL VOLUME 89.3 fl (81.0-99.0); MEAN CORPUSCULAR HGB CONC 33.6 g/dl (33.0-37.0); MEAN PLATELET VOLUME 10.3 fl (9.6-12.3); MONO # 0.8 10*3/uL (0.1-1.0); NEUT # 3.4 10*3/uL (2.3-7.9); NEUT % 55.7 % (47.0-73.0); PLATELET COUNT AUTOMATED 145 10*3/uL (130-400); RED CELL DISTRI WIDTH 13.4 % (0-14.5); WHITE BLOOD COUNT 6.1 10*3/uL (4.8-10.8)
[2020-11-05 08:00] VITALS: BP 125/49
[2020-11-05] MEDS ORDERED: CEFUROXIME AXE250 MG PO (08:26)
[2020-11-05] MEDS ORDERED: Lantus SC (08:26)
== END 2020-11-05 11:11 | disposition home or self-care (01) | DRG 690 ==
LOC: ED 14:10 → EDHOLD 17:08 → 4E 17:08
PROVIDERS: Nurse Practitioner Family; ADMIT Internal Medicine; ATTEND Internal Medicine
DX: N30.01 Acute cystitis with hematuria (principal); N18.4 Chronic kidney disease, stage 4 (severe); I13.0 Hypertensive heart and chronic kidney disease with heart failure and stage 1 through stage 4 chronic kidney disease, or unspecified chronic kidney disease; E72.20 Disorder of urea cycle metabolism, unspecified; E87.2 Acidosis; B96.1 Klebsiella pneumoniae [K. pneumoniae] as the cause of diseases classified elsewhere; K75.81 Nonalcoholic steatohepatitis (NASH); E11.22 Type 2 diabetes mellitus with diabetic chronic kidney disease; R62.7 Adult failure to thrive; K72.10 Chronic hepatic failure without coma; Z20.822 Contact with and (suspected) exposure to COVID-19; E11.649 Type 2 diabetes mellitus with hypoglycemia without coma; I50.9 Heart failure, unspecified; K74.60 Unspecified cirrhosis of liver; Z83.3 Family history of diabetes mellitus; Z82.49 Family history of ischemic heart disease and other diseases of the circulatory system; Z68.29 Body mass index [BMI] 29.0-29.9, adult

== ENCOUNTER 2021-03-10 12:09 | Inpatient (IN) | payer OTHER ==
[~2021-03-10] VITALS: Ht 162.6 cm; Wt 79.1 kg
[~2021-03-10 12:09] MED LIST changes: +CEFUROXIME AXE250 MG PO; +HUMALOG100 UNIT/1 SC; +Lantus SC
[2021-03-10 12:15] VITALS: BP 131/48
[2021-03-10 14:57] LABS: BASO # 0.1 10*3/uL (0.0-0.1); BASO % 0.9 % (0.0-1.0); EOS # 0.4 10*3/uL (0.0-0.4); EOS % 3.9 % (1.0-4.0); HEMATOCRIT 28.4 % (37.0-47.0); LYMPH # 1.1 10*3/uL (1.3-4.4); LYMPH % 12.4 % (27.0-41.0); MEAN CELL VOLUME 86.3 fl (81.0-99.0); MEAN CORPUSCULAR HGB CONC 35.9 g/dl (33.0-37.0); MONO # 0.9 10*3/uL (0.1-1.0); MONO % 10.2 % (3.0-9.0); NEUT # 6.4 10*3/uL (2.3-7.9); NEUT % 72.2 % (47.0-73.0); PLATELET COUNT AUTOMATED 180 10*3/uL (130-400); RED BLOOD COUNT 3.29 10*6/uL (4.10-5.10); RED CELL DISTRI WIDTH 12.9 % (0-14.5); WHITE BLOOD COUNT 8.9 10*3/uL (4.8-10.8)
[2021-03-10 15:26] LABS: ALBUMIN 2.3 gm/dl (3.1-4.5); CREATININE 2.28 mg/dL (0.55-1.02); POTASSIUM 3.8 mmol/L (3.5-5.1); TOTAL PROTEIN 5.8 gm/dL (6.4-8.2)
[2021-03-10 15:32] LABS: TROPONIN I 0.05 ng/ml (<0.045)
[2021-03-10 20:13] VITALS: BP 152/52
[2021-03-10 20:38] VITALS: BP 160/55
[2021-03-10 21:06] LABS: BILIRUBIN Negative (Negative); BLOOD 2+ (Negative); CLARITY Clear (Clear); COLOR Yellow (Yellow); GLUCOSE 3+ (Negative); KETONE Negative (Negative); LEUKO ESTERASE 1+ (Negative); NITRITE Negative (Negative); PH 5.5 (4.5-8.0)
[2021-03-10 21:21] LABS: WBC 31-40 wbc/hpf (0-5)
[2021-03-10 21:22] LABS: BACTERIA 2+; YEAST 1+
[2021-03-11 00:24] VITALS: BP 156/62
[2021-03-11 03:09] VITALS: BP 160/55
[2021-03-11 05:13] VITALS: BP 152/58
[2021-03-11 05:54] LABS: ALBUMIN 1.9 gm/dl (3.1-4.5); CREATININE 2.06 mg/dL (0.55-1.02)
[2021-03-11 06:30] LABS: BASO # 0.1 10*3/uL (0.0-0.1); BASO % 0.8 % (0.0-1.0); EOS # 0.3 10*3/uL (0.0-0.4); EOS % 4.6 % (1.0-4.0); HEMATOCRIT 26.2 % (37.0-47.0); LYMPH # 1.5 10*3/uL (1.3-4.4); LYMPH % 19.7 % (27.0-41.0); MEAN CELL VOLUME 88.5 fl (81.0-99.0); MEAN CORPUSCULAR HGB 31.4 pg (27.0-31.0); MEAN CORPUSCULAR HGB CONC 35.5 g/dl (33.0-37.0); MEAN PLATELET VOLUME 10.3 fl (9.6-12.3); MONO # 0.8 10*3/uL (0.1-1.0); MONO % 10.6 % (3.0-9.0); NEUT # 4.7 10*3/uL (2.3-7.9); PLATELET COUNT AUTOMATED 162 10*3/uL (130-400); RED BLOOD COUNT 2.96 10*6/uL (4.10-5.10); RED CELL DISTRI WIDTH 13.1 % (0-14.5); WHITE BLOOD COUNT 7.4 10*3/uL (4.8-10.8)
[2021-03-11 07:20] VITALS: BP 147/60
[2021-03-11 23:15] VITALS: BP 147/51
[2021-03-12 06:43] LABS: BASO # 0.1 10*3/uL (0.0-0.1); EOS # 0.4 10*3/uL (0.0-0.4); EOS % 5.5 % (1.0-4.0); HEMATOCRIT 26.2 % (37.0-47.0); LYMPH # 1.7 10*3/uL (1.3-4.4); LYMPH % 23.6 % (27.0-41.0); MEAN CELL VOLUME 87.9 fl (81.0-99.0); MEAN CORPUSCULAR HGB 30.9 pg (27.0-31.0); MEAN CORPUSCULAR HGB CONC 35.1 g/dl (33.0-37.0); MEAN PLATELET VOLUME 9.7 fl (9.6-12.3); MONO # 0.9 10*3/uL (0.1-1.0); MONO % 12.6 % (3.0-9.0); NEUT # 4.2 10*3/uL (2.3-7.9); PLATELET COUNT AUTOMATED 150 10*3/uL (130-400); RED BLOOD COUNT 2.98 10*6/uL (4.10-5.10); RED CELL DISTRI WIDTH 13.2 % (0-14.5); WHITE BLOOD COUNT 7.3 10*3/uL (4.8-10.8)
[2021-03-12 07:30] LABS: CREATININE 2.34 mg/dL (0.55-1.02); POTASSIUM 3.7 mmol/L (3.5-5.1)
[2021-03-12 08:00] VITALS: BP 123/41
[2021-03-12] MEDS ORDERED: AUGMENTIN 875-875 MG PO (09:47)
[2021-03-12 12:00] VITALS: BP 128/50
== END 2021-03-12 13:50 | disposition home or self-care (01) | DRG 73 ==
LOC: ED 12:09 → EDHOLD 17:26 → 4E 03-11 19:38
PROVIDERS: Emergency Medicine; ADMIT Internal Medicine; ATTEND Internal Medicine
DX: E11.43 Type 2 diabetes mellitus with diabetic autonomic (poly)neuropathy (principal); E43 Unspecified severe protein-calorie malnutrition; N18.4 Chronic kidney disease, stage 4 (severe); E87.1 Hypo-osmolality and hyponatremia; E86.0 Dehydration; K72.90 Hepatic failure, unspecified without coma; K74.60 Unspecified cirrhosis of liver; E11.65 Type 2 diabetes mellitus with hyperglycemia; D63.1 Anemia in chronic kidney disease; K31.84 Gastroparesis; R62.7 Adult failure to thrive; K75.81 Nonalcoholic steatohepatitis (NASH); E11.22 Type 2 diabetes mellitus with diabetic chronic kidney disease; Z82.49 Family history of ischemic heart disease and other diseases of the circulatory system; Z83.3 Family history of diabetes mellitus; Z79.1 Long term (current) use of non-steroidal anti-inflammatories (NSAID); Z79.899 Other long term (current) drug therapy; Z68.29 Body mass index [BMI] 29.0-29.9, adult

== ENCOUNTER 2021-04-11 11:53 | Inpatient (IN) | payer OTHER ==
[~2021-04-11] VITALS: Ht 162.6 cm; Wt 71.9 kg
[2021-04-11] VITALS (7 sets, daily range): BP systolic 83–138; BP diastolic 33–56
[~2021-04-11 11:53] MED LIST changes: +AUGMENTIN 875-875 MG PO
[2021-04-11 12:58] LABS: BASO # 0.1 10*3/uL (0.0-0.1); BASO % 1.3 % (0.0-1.0); EOS # 0.2 10*3/uL (0.0-0.4); HEMATOCRIT 30.7 % (37.0-47.0); LYMPH # 0.9 10*3/uL (1.3-4.4); LYMPH % 16.7 % (27.0-41.0); MEAN CELL VOLUME 88.5 fl (81.0-99.0); MEAN CORPUSCULAR HGB 31.1 pg (27.0-31.0); MEAN CORPUSCULAR HGB CONC 35.2 g/dl (33.0-37.0); MEAN PLATELET VOLUME 10.4 fl (9.6-12.3); MONO # 0.6 10*3/uL (0.1-1.0); MONO % 10.5 % (3.0-9.0); NEUT # 3.7 10*3/uL (2.3-7.9); NEUT % 67.1 % (47.0-73.0); PLATELET COUNT AUTOMATED 144 10*3/uL (130-400); RED BLOOD COUNT 3.47 10*6/uL (4.10-5.10); RED CELL DISTRI WIDTH 13.1 % (0-14.5); WHITE BLOOD COUNT 5.4 10*3/uL (4.8-10.8)
[2021-04-11 13:09] LABS: ACT PARTIAL THROMBO TIME 27.2 SECONDS (20.0-32.1); INTERNATIONAL NORM RATIO 1.2 (2.0-3.5)
[2021-04-11 13:16] LABS: ALBUMIN 1.5 gm/dl (3.1-4.5); ALKALINE PHOSPHATASE 228 U/L (45-117); BUN 33 mg/dl (7-24); CHLORIDE 102 mmol/L (98-107); CREATININE 2.53 mg/dL (0.55-1.02); LIPASE 247 U/L (73-393); POTASSIUM 4.4 mmol/L (3.5-5.1); SGOT/AST 36 IU/L (3-35); SGPT/ALT 30 U/L (12-78); SODIUM 132 mmol/L (136-145); TOTAL PROTEIN 5.5 gm/dL (6.4-8.2)
[2021-04-11 13:25] LABS: TROPONIN I 0.084 ng/ml (<0.045)
[2021-04-11 15:22] LABS: BILIRUBIN Negative (Negative); BLOOD 1+ (Negative); CLARITY Cloudy (Clear); COLOR Yellow (Yellow); GLUCOSE 3+ (Negative); KETONE Trace (Negative); LEUKO ESTERASE 2+ (Negative); NITRITE Negative (Negative); PH 5.5 (4.5-8.0); SPECIFIC GRAVITY 1.025 (1.001-1.030); UROBILINOGEN 0.2 E.U./dl (0.0-1.0)
[2021-04-11 15:43] LABS: BACTERIA 4+; EPITHELIAL CELLS 51-100; RBC 16-20 rbc/hpf (0-2); WBC TNTC wbc/hpf (0-5)
[2021-04-11] MEDS ORDERED: REGLAN5 MG PO (17:53)
[2021-04-11] MEDS ORDERED: ZESTORETIC 20-1 EACH PO (17:53)
[2021-04-11] MEDS ORDERED: NORVASC5 MG PO (18:54)
[2021-04-11] MEDS ORDERED: TYLENOL325 M1 PO (18:55)
[2021-04-11] MEDS ORDERED: AUGMENTIN 875-875 MG PO (18:56)
[2021-04-12] VITALS: BP 141/57; BP 99/78
[2021-04-12 04:00] VITALS: BP 99/78
[2021-04-12 08:00] VITALS: BP 105/54
[2021-04-12 12:00] VITALS: BP 149/52
[2021-04-12 16:00] VITALS: BP 152/56
[2021-04-12 20:00] VITALS: BP 150/55
[2021-04-13] VITALS: BP 102/66
[2021-04-13 06:49] LABS: BASO # 0.1 10*3/uL (0.0-0.1); EOS # 0.4 10*3/uL (0.0-0.4); EOS % 6.2 % (1.0-4.0); HEMATOCRIT 29.6 % (37.0-47.0); LYMPH # 1.4 10*3/uL (1.3-4.4); LYMPH % 23.9 % (27.0-41.0); MEAN CELL VOLUME 89.4 fl (81.0-99.0); MEAN CORPUSCULAR HGB 30.8 pg (27.0-31.0); MEAN CORPUSCULAR HGB CONC 34.5 g/dl (33.0-37.0); MEAN PLATELET VOLUME 10.1 fl (9.6-12.3); MONO % 16.2 % (3.0-9.0); NEUT # 3.1 10*3/uL (2.3-7.9); NEUT % 52.4 % (47.0-73.0); PLATELET COUNT AUTOMATED 116 10*3/uL (130-400); RED BLOOD COUNT 3.31 10*6/uL (4.10-5.10); RED CELL DISTRI WIDTH 13.2 % (0-14.5); WHITE BLOOD COUNT 5.9 10*3/uL (4.8-10.8)
[2021-04-13 07:03] LABS: CREATININE 2.15 mg/dL (0.55-1.02); POTASSIUM 4.5 mmol/L (3.5-5.1)
[2021-04-13 08:00] VITALS: BP 131/50
[2021-04-13 12:00] VITALS: BP 136/52
[2021-04-13 16:00] VITALS: BP 132/48
[2021-04-13 20:00] VITALS: BP 147/65
[2021-04-14] VITALS: BP 99/78
[2021-04-14 08:00] VITALS: BP 110/42
[2021-04-14 12:00] VITALS: BP 129/45
[2021-04-14 16:00] VITALS: BP 139/52
[2021-04-14 20:00] VITALS: BP 112/39
[2021-04-15] VITALS: BP 150/52
[2021-04-15 08:00] VITALS: BP 121/43
== END 2021-04-15 11:20 | disposition home health service (06) | DRG 441 ==
LOC: ED 11:53 → 5E 16:38 → EDHOLD 16:38 → 5E 17:54
PROVIDERS: Emergency Medicine; ADMIT Internal Medicine; ATTEND Internal Medicine
DX: K75.81 Nonalcoholic steatohepatitis (NASH) (principal); E43 Unspecified severe protein-calorie malnutrition; N18.4 Chronic kidney disease, stage 4 (severe); Z20.822 Contact with and (suspected) exposure to COVID-19; E11.22 Type 2 diabetes mellitus with diabetic chronic kidney disease; R62.7 Adult failure to thrive; Z83.3 Family history of diabetes mellitus; Z68.27 Body mass index [BMI] 27.0-27.9, adult; K72.90 Hepatic failure, unspecified without coma

== ENCOUNTER 2021-06-14 19:03 | Emergency (ER) | payer OTHER ==
[~2021-06-14 19:03] MED LIST changes: +METOCLOPRAMIDE H5 M1 PO; +NORVASC5 MG PO; +REGLAN5 MG PO
== END 2021-06-14 23:41 | disposition home or self-care (01) ==
LOC: ED 19:03
DX: M54.9 Dorsalgia, unspecified (principal); W18.39XA Other fall on same level, initial encounter; Y93.89 Activity, other specified; Y92.89 Other specified places as the place of occurrence of the external cause; Y99.8 Other external cause status

== ENCOUNTER 2021-06-15 15:36 | Inpatient (IN) | payer OTHER ==
[~2021-06-15] VITALS: Ht 162.5 cm; Wt 80.8 kg
[2021-06-15 16:42] VITALS: BP 137/59
[2021-06-15 20:26] LABS: BASO # 0.1 10*3/uL (0.0-0.1); BASO % 1.1 % (0.0-1.0); EOS # 0.3 10*3/uL (0.0-0.4); EOS % 3.2 % (1.0-4.0); HEMATOCRIT 31.6 % (37.0-47.0); LYMPH # 1.2 10*3/uL (1.3-4.4); LYMPH % 14.6 % (27.0-41.0); MEAN CELL VOLUME 87.5 fl (81.0-99.0); MEAN CORPUSCULAR HGB 29.6 pg (27.0-31.0); MEAN CORPUSCULAR HGB CONC 33.9 g/dl (33.0-37.0); MEAN PLATELET VOLUME 10.1 fl (9.6-12.3); MONO # 1.2 10*3/uL (0.1-1.0); MONO % 14.4 % (3.0-9.0); NEUT # 5.4 10*3/uL (2.3-7.9); NEUT % 66.3 % (47.0-73.0); PLATELET COUNT AUTOMATED 175 10*3/uL (130-400); RED BLOOD COUNT 3.61 10*6/uL (4.10-5.10); RED CELL DISTRI WIDTH 13.2 % (0-14.5); WHITE BLOOD COUNT 8.1 10*3/uL (4.8-10.8)
[2021-06-15 20:42] LABS: ALBUMIN 1.6 gm/dl (3.1-4.5); CREATININE 2.7 mg/dL (0.55-1.02); POTASSIUM 4.5 mmol/L (3.5-5.1)
[2021-06-15 21:20] LABS: BILIRUBIN Negative (Negative); BLOOD 1+ (Negative); CLARITY Clear (Clear); COLOR Yellow (Yellow); GLUCOSE 1+ (Negative); KETONE Trace (Negative); LEUKO ESTERASE Negative (Negative); NITRITE Negative (Negative); PH 7.5 (4.5-8.0); SPECIFIC GRAVITY 1.015 (1.001-1.030)
[2021-06-15 21:32] LABS: BACTERIA 1+
[2021-06-16] VITALS (7 sets, daily range): BP systolic 131–147; BP diastolic 50–74
[2021-06-16 05:58] LABS: BASO # 0.1 10*3/uL (0.0-0.1); BASO % 0.9 % (0.0-1.0); EOS # 0.3 10*3/uL (0.0-0.4); EOS % 3.3 % (1.0-4.0); LYMPH # 1.2 10*3/uL (1.3-4.4); LYMPH % 15.9 % (27.0-41.0); MEAN CELL VOLUME 85.8 fl (81.0-99.0); MEAN CORPUSCULAR HGB 30.4 pg (27.0-31.0); MEAN CORPUSCULAR HGB CONC 35.4 g/dl (33.0-37.0); MEAN PLATELET VOLUME 9.9 fl (9.6-12.3); MONO # 1.1 10*3/uL (0.1-1.0); MONO % 14.3 % (3.0-9.0); NEUT # 4.8 10*3/uL (2.3-7.9); NEUT % 64.5 % (47.0-73.0); PLATELET COUNT AUTOMATED 141 10*3/uL (130-400); RED BLOOD COUNT 3.03 10*6/uL (4.10-5.10); WHITE BLOOD COUNT 7.5 10*3/uL (4.8-10.8)
[2021-06-16 06:07] LABS: CREATININE 2.29 mg/dL (0.55-1.02); POTASSIUM 4.2 mmol/L (3.5-5.1)
[2021-06-17] VITALS: BP 145/64
[2021-06-17 08:00] VITALS: BP 152/55
[2021-06-17 12:00] VITALS: BP 153/54
[2021-06-17 16:00] VITALS: BP 146/54
[2021-06-17 20:00] VITALS: BP 148/44
[2021-06-18] VITALS: BP 162/60
[2021-06-18 06:23] LABS: POTASSIUM 3.8 mmol/L (3.5-5.1)
[2021-06-18 06:31] LABS: BASO # 0.1 10*3/uL (0.0-0.1); BASO % 0.8 % (0.0-1.0); EOS # 0.4 10*3/uL (0.0-0.4); EOS % 4.7 % (1.0-4.0); HEMATOCRIT 27.8 % (37.0-47.0); LYMPH # 1.4 10*3/uL (1.3-4.4); LYMPH % 17.9 % (27.0-41.0); MEAN CELL VOLUME 86.9 fl (81.0-99.0); MEAN CORPUSCULAR HGB 29.7 pg (27.0-31.0); MEAN CORPUSCULAR HGB CONC 34.2 g/dl (33.0-37.0); MEAN PLATELET VOLUME 10.1 fl (9.6-12.3); MONO # 1.1 10*3/uL (0.1-1.0); MONO % 14.2 % (3.0-9.0); NEUT # 4.9 10*3/uL (2.3-7.9); NEUT % 61.9 % (47.0-73.0); PLATELET COUNT AUTOMATED 146 10*3/uL (130-400); WHITE BLOOD COUNT 7.9 10*3/uL (4.8-10.8)
[2021-06-18 06:33] LABS: CREATININE 2.01 mg/dL (0.55-1.02)
[2021-06-18] MEDS ORDERED: CEFUROXIME AXE250 MG PO (07:42)
[2021-06-18] MEDS ORDERED: METOCLOPRAMIDE H5 M1 PO (07:42)
[2021-06-18] MEDS ORDERED: Lantus SC (07:42)
[2021-06-18 08:00] VITALS: BP 155/59
[2021-06-18 12:00] VITALS: BP 157/61
== END 2021-06-18 13:26 | disposition home or self-care (01) | DRG 690 ==
LOC: ED 15:36 → 4E 06-16 01:33 → EDHOLD 06-16 01:33 → 4E 06-16 14:04
PROVIDERS: Internal Medicine; ADMIT Internal Medicine; ATTEND Internal Medicine
DX: N39.0 Urinary tract infection, site not specified (principal); E44.0 Moderate protein-calorie malnutrition; N18.4 Chronic kidney disease, stage 4 (severe); E11.22 Type 2 diabetes mellitus with diabetic chronic kidney disease; I12.9 Hypertensive chronic kidney disease with stage 1 through stage 4 chronic kidney disease, or unspecified chronic kidney disease; R62.7 Adult failure to thrive; M54.50 Low back pain, unspecified; D64.9 Anemia, unspecified; K75.81 Nonalcoholic steatohepatitis (NASH); W19.XXXA Unspecified fall, initial encounter; Y93.89 Activity, other specified; Y92.89 Other specified places as the place of occurrence of the external cause; Y99.8 Other external cause status; Z68.30 Body mass index [BMI] 30.0-30.9, adult; Z20.822 Contact with and (suspected) exposure to COVID-19

== ENCOUNTER 2021-06-19 10:48 | Inpatient (IN) | payer OTHER ==
[2021-06-19] VITALS (10 sets, daily range): BP systolic 116–168; BP diastolic 54–89
[~2021-06-19] VITALS: Ht 165.1 cm; Wt 74.0 kg
[2021-06-19 11:17] LABS: BILIRUBIN 1+ (Negative); BLOOD 2+ (Negative); CLARITY Clear (Clear); COLOR Dark Yellow (Yellow); GLUCOSE 1+ (Negative); KETONE Trace (Negative); LEUKO ESTERASE 1+ (Negative); NITRITE Negative (Negative)
[2021-06-19 11:34] LABS: HEMATOCRIT 31.6 % (37.0-47.0); MEAN CELL VOLUME 88.5 fl (81.0-99.0); MEAN CORPUSCULAR HGB 29.7 pg (27.0-31.0); MEAN CORPUSCULAR HGB CONC 33.5 g/dl (33.0-37.0); PLATELET COUNT AUTOMATED 152 10*3/uL (130-400); RED BLOOD COUNT 3.57 10*6/uL (4.10-5.10); RED CELL DISTRI WIDTH 13.3 % (0-14.5); WHITE BLOOD COUNT 14.5 10*3/uL (4.8-10.8)
[2021-06-19 11:50] LABS: ACT PARTIAL THROMBO TIME 30.8 SECONDS (20.0-32.1); INTERNATIONAL NORM RATIO 1.2 (2.0-3.5)
[2021-06-19 11:51] LABS: ALBUMIN 1.5 gm/dl (3.1-4.5); CREATININE 2.9 mg/dL (0.55-1.02); POTASSIUM 4.5 mmol/L (3.5-5.1); TOTAL PROTEIN 5.9 gm/dL (6.4-8.2)
[2021-06-19 11:52] LABS: BACTERIA 2+; EPITHELIAL CELLS 31-40; RBC 16-20 rbc/hpf (0-2); WBC 31-40 wbc/hpf (0-5)
[2021-06-19 11:55] LABS: BASOPHILS 1 % (0-1); PLATELET SUFFICIENCY NORMAL (NORMAL); TOTAL CELLS COUNTED 100 #CELLS
[2021-06-20] VITALS: BP 164/65
[2021-06-20 08:00] VITALS: BP 127/60
[2021-06-20 12:00] VITALS: BP 125/59
[2021-06-20 16:00] VITALS: BP 109/63
[2021-06-21] VITALS: BP 103/39
== END 2021-06-21 10:15 | DRG 70 ==
LOC: ED 10:48 → 5E 17:34 → EDHOLD 17:34 → 5E 20:32
PROVIDERS: Emergency Medicine; ADMIT Internal Medicine; ATTEND Internal Medicine
DX: G93.41 Metabolic encephalopathy (principal); E43 Unspecified severe protein-calorie malnutrition; N39.0 Urinary tract infection, site not specified; N17.9 Acute kidney failure, unspecified; N18.4 Chronic kidney disease, stage 4 (severe); E72.20 Disorder of urea cycle metabolism, unspecified; I85.00 Esophageal varices without bleeding; Z51.5 Encounter for palliative care; R74.01 Elevation of levels of liver transaminase levels; E87.8 Other disorders of electrolyte and fluid balance, not elsewhere classified; D72.810 Lymphocytopenia; D64.9 Anemia, unspecified; E11.22 Type 2 diabetes mellitus with diabetic chronic kidney disease; K75.81 Nonalcoholic steatohepatitis (NASH); K74.60 Unspecified cirrhosis of liver; K26.7 Chronic duodenal ulcer without hemorrhage or perforation; K25.9 Gastric ulcer, unspecified as acute or chronic, without hemorrhage or perforation; I50.9 Heart failure, unspecified; Z95.828 Presence of other vascular implants and grafts; Z79.4 Long term (current) use of insulin; Z79.899 Other long term (current) drug therapy; Z68.30 Body mass index [BMI] 30.0-30.9, adult